=== PATIENT | male | born 1950 | race Caucasian/White ===

== ENCOUNTER → 2017-08-08 | Outpatient (CLI) | payer MEDICARE, BC ==
[2017-08-08 11:08] LABS: Albumin 3.5 g/dL (3.5-5.0); Bilirubin, Delta 0.3 mg/dL (0.0-0.2); Bilirubin,Unconjugated 0.2 mg/dL (0.0-1.1); Calcium 9.3 mg/dL (8.4-10.2); Magnesium 1.7 mg/dL (1.6-2.3); Potassium 4.3 mmol/L (3.5-5.1); Total Bilirubin 0.5 mg/dL (0.2-1.3); Total Protein 6.8 g/dL (6.3-8.2)
[2017-08-08 11:23] LABS: Basophils % (A) 1 %; Eosinophils # (A) 0.1 k/uL (0-0.7); Eosinophils % (A) 2 %; Lymphocytes # (A) 2.2 k/uL (1.0-4.8); Lymphocytes % (A) 34 %; MCH 30.6 pg (25.0-35.0); MCHC 32.5 g/dL (31.0-37.0); MCV 94.1 fL (80.0-100.0); Mean Platelet Volume 6.9; Monocytes # (A) 0.4 k/uL (0-1.0); Monocytes % (A) 6 %; Neutrophils # (A) 3.8 k/uL (1.3-7.7); Neutrophils % (A) 57 %; Platelet Count 286 k/uL (150-450); RBC 4.57 m/uL (4.30-5.90); RDW 13.2 % (11.5-15.5); WBC 6.6 k/uL (3.8-10.6)
[2017-08-10 14:54] LABS: HCV Quant Log 6.62 (<1.08)
== END | disposition home or self-care (01) ==
LOC: LABWHC1 09:39
PROVIDERS: ATTEND Internal Medicine Gastroenterology
DX: C22.0 Liver cell carcinoma (principal); B18.2 Chronic viral hepatitis C; Z94.4 Liver transplant status
CPT/HCPCS: 36415; 80048; 80076; 80158; 82105; 82465; 83735; 85025; 87522; 87902

== ENCOUNTER 2017-12-20 12:59 | Emergency (ER) | payer BC, MEDICARE ==
--- NOTE | 2017-12-20 13:40 | ED ---
General Adult HPI - General Chief complaint: Weakness Stated complaint: Weakness Time Seen by Provider: 12/20/17 13:14 Source: patient, EMS Mode of arrival: EMS Limitations: physical limitation - History of Present Illness Initial comments: This is a 67-year-old male with a history of liver transplant, CAD, CVA, and hip fracture presents emergency department for left-sided groin pain. He states that he fell 4 days ago. He was going to the bathroom to empty out some urine drugs and lost his footing in the bathroom. He states that he fell onto his left side. He does admit to hitting his head however states he did not lose consciousness. He states over the last 4 days he has been having difficulty with ambulation and a lot of pain. He did have to have his grandson come over and help him get back in to his recliner. His home care nurse came and evaluated today and saw how weak he was and sent him into the emergency department. Patient denies any other injuries. He states that otherwise he feels completely normal. No chest pain or shortness of breath. No abdominal pain. No dysuria or hematuria. No other acute complaints. - Related Data Home Medications Medication Instructions Recorded Confirmed Aspirin 81 mg PO HS 09/16/15 12/20/17 amLODIPine BESYLATE [Norvasc] 5 mg PO BID 09/16/15 12/20/17 Cyclosporine, Modified [Gengraf] 50 mg PO HS 12/16/15 12/20/17 Cyclosporine, Modified [Gengraf] 75 mg PO QAM 12/16/15 12/20/17 Metoprolol Tartrate [Lopressor] 50 mg PO DAILY 12/16/15 12/20/17 Mycophenolate Mofetil [Cellcept] 500 mg PO BID 12/16/15 12/20/17 levETIRAcetam [Keppra] 1,500 mg PO BID 12/16/15 12/20/17 Atorvastatin [Lipitor] 40 mg PO HS 12/20/17 12/20/17 Iron(Unknown Dose) 1 tab PO DAILY 12/20/17 12/20/17 Vitamin D3(Unknown Dose) 3 tab PO HS 12/20/17 12/20/17 Allergies Allergy/AdvReac Type Severity Reaction Status Date / Time diphenhydramine HCl Allergy Unknown Verified 12/16/15 07:48 [From [facility]] Review of Systems ROS Statement: Those systems with pertinent positive or pertinent negative responses have been documented in the HPI. ROS Other: All systems not noted in ROS Statement are negative. Past Medical History Past Medical History: Cancer, CVA/TIA, Hypertension, Liver Disease, Seizure Disorder, Vascular Disorder Additional Past Medical History / Comment(s): left sided weakness from stroke, HEPATITIS C History of Any Multi-Drug Resistant Organisms: None Reported Past Surgical History: Heart Catheterization With Stent Additional Past Surgical History / Comment(s): Liver transplant, LEFT FEMUR REPAIR x2 Date of Last Stent Placement:: 2012 Past Psychological History: No Psychological Hx Reported Smoking Status: Current every day smoker Past Alcohol Use History: None Reported Past Drug Use History: None Reported - Past Family History Mother Family Medical History: Congestive Heart Failure (CHF) Father Family Medical History: Congestive Heart Failure (CHF), Myocardial Infarction ( [place]) General Exam - General Exam Comments Initial Comments: Constitutional: Awake alert Appears comfortable Head: Normocephalic atraumatic Eyes: no conjunctival injection No scleral icterus EOMI Neck: No JVD Supple Heart: Regular rate rhythm normal S1-S2 no murmurs Lungs: Clear to auscultation bilaterally No wheezing No rales Abdomen: Soft nondistended nontender Extremities: Non edematous DP pulses intact Radial pulses intact, tender in the left inguinal region, no pain with log rolling of the left lower extremity, there is some pain with pelvic rocking Neuro: A&Ox3 No focal neurologic deficits Psych: Appropriate mood and affect Limitations: physical limitation Course Vital Signs 12/20/17 12/20/17 12/20/17 13:00 13:11 14:34 Temperature 96.8 F L 97.3 F L Pulse Rate 52 L 59 L 56 L Respiratory 19 20 19 Rate Blood Pressure 205/95 105/56 216/92 O2 Sat by Pulse 99 93 L 98 Oximetry EKG Findings - EKG Comments: EKG Findings:: EKG showing sinus. Cardiac with a rate of 50. There is no abnormal ST segment changes or T-wave inversions. QTC is 432. Other intervals normal. No ectopy. Medical Decision Making - Medical Decision Making This is a 67-year-old male who presents emergency department for left hip pain after a fall 4 days ago. The patient was evaluated with x-rays did not show any acute fractures. He does have an old non-healing fracture of the left intertrochanteric femur. This is chronic for him. No other acute fractures. The patient did not require any pain medications in the emergency department. He is not ambulatory at baseline and uses a wheelchair. I discussed the patient that I would recommend that he stay in observation for physical therapy and possible placement however he states that he does not want to do this and wants to go home. He states that his grandson can assist him at home and has physical therapy coming to his house. The patient will be discharged home with a wheelchair van. All questions answered. - Lab Data Result diagrams: 12/20/17 13:40 12/20/17 13:40 Lab Results 12/20/17 12/20/17 12/20/17 Range/Units 13:40 13:40 13:40 WBC 5.9 (3.8-10.6) k/uL RBC 4.05 L (4.30-5.90) m/uL Hgb 12.6 L (13.0-17.5) gm/dL Hct 37.2 L (39.0-53.0) % MCV 91.7 (80.0-100.0) fL MCH 31.2 (25.0-35.0) pg MCHC 34.0 (31.0-37.0) g/dL RDW 13.9 (11.5-15.5) % Plt Count 231 (150-450) k/uL Neutrophils % 52 % Lymphocytes % 37 % Monocytes % 7 % Eosinophils % 2 % Basophils % 1 % Neutrophils # 3.1 (1.3-7.7) k/uL Lymphocytes # 2.1 (1.0-4.8) k/uL Monocytes # 0.4 (0-1.0) k/uL Eosinophils # 0.1 (0-0.7) k/uL Basophils # 0.0 (0-0.2) k/uL PT 9.6 (9.0-12.0) sec INR 1.0 (<1.2) APTT 24.6 (22.0-30.0) sec Sodium 139 (137-145) mmol/L Potassium 4.1 (3.5-5.1) mmol/L Chloride 110 H (98-107) mmol/L Carbon Dioxide 19 L (22-30) mmol/L Anion Gap 10 mmol/L BUN 32 H (9-20) mg/dL Creatinine 1.79 H (0.66-1.25) mg/dL Est GFR (CKD-EPI)AfAm 45 (>60 ml/min/1.73 sqM) Est GFR (CKD-EPI)NonAf 39 (>60 ml/min/1.73 sqM) Glucose 92 (74-99) mg/dL Calcium 8.3 L (8.4-10.2) mg/dL Total Bilirubin 0.4 (0.2-1.3) mg/dL AST 37 (17-59) U/L ALT 43 (21-72) U/L Alkaline Phosphatase 84 (38-126) U/L Total Protein 6.0 L (6.3-8.2) g/dL Albumin 3.1 L (3.5-5.0) g/dL Urine Color Urine Appearance (Clear) Urine pH (5.0-8.0) Ur Specific [place] (1.001-1.035) Urine Protein (Negative) Urine Glucose (UA) (Negative) Urine Ketones (Negative) Urine Blood (Negative) Urine Nitrite (Negative) Urine Bilirubin (Negative) Urine Urobilinogen (<2.0) mg/dL Ur Leukocyte Esterase (Negative) Urine RBC (0-5) /hpf Urine WBC (0-5) /hpf Ur Squamous Epith Cells (0-4) /hpf Hyaline Casts (0-2) /lpf Urine Mucus (None) /hpf 12/20/17 Range/Units 13:45 WBC (3.8-10.6) k/uL RBC (4.30-5.90) m/uL Hgb (13.0-17.5) gm/dL Hct (39.0-53.0) % MCV (80.0-100.0) fL MCH (25.0-35.0) pg MCHC (31.0-37.0) g/dL RDW (11.5-15.5) % Plt Count (150-450) k/uL Neutrophils % % Lymphocytes % % Monocytes % % Eosinophils % % Basophils % % Neutrophils # (1.3-7.7) k/uL Lymphocytes # (1.0-4.8) k/uL Monocytes # (0-1.0) k/uL Eosinophils # (0-0.7) k/uL Basophils # (0-0.2) k/uL PT (9.0-12.0) sec INR (<1.2) APTT (22.0-30.0) sec Sodium (137-145) mmol/L Potassium (3.5-5.1) mmol/L Chloride (98-107) mmol/L Carbon Dioxide (22-30) mmol/L Anion Gap mmol/L BUN (9-20) mg/dL Creatinine (0.66-1.25) mg/dL Est GFR (CKD-EPI)AfAm (>60 ml/min/1.73 sqM) Est GFR (CKD-EPI)NonAf (>60 ml/min/1.73 sqM) Glucose (74-99) mg/dL Calcium (8.4-10.2) mg/dL Total Bilirubin (0.2-1.3) mg/dL AST (17-59) U/L ALT (21-72) U/L Alkaline Phosphatase (38-126) U/L Total Protein (6.3-8.2) g/dL Albumin (3.5-5.0) g/dL Urine Color Yellow Urine Appearance Clear (Clear) Urine pH 6.5 (5.0-8.0) Ur Specific [place] 1.011 (1.001-1.035) Urine Protein 3+ H (Negative) Urine Glucose (UA) Negative (Negative) Urine Ketones Negative (Negative) Urine Blood Small H (Negative) Urine Nitrite Negative (Negative) Urine Bilirubin Negative (Negative) Urine Urobilinogen <2.0 (<2.0) mg/dL Ur Leukocyte Esterase Negative (Negative) Urine RBC 1 (0-5) /hpf Urine WBC 2 (0-5) /hpf Ur Squamous Epith Cells <1 (0-4) /hpf Hyaline Casts 4 H (0-2) /lpf Urine Mucus Rare H (None) /hpf Disposition Clinical Impression: Hip pain, Fall Disposition: HOME SELF-CARE Condition: Stable Instructions: Fall Prevention (ED) Is patient prescribed a controlled substance at d/c from ED?: No Referrals: None,Stated [Primary Care Provider] - 1-2 days
[2017-12-20 14:08] LABS: Appearance,Urine Clear (Clear); Bilirubin,Urine Negative (Negative); Blood,Urine Small (Negative); Color,Urine Yellow; Glucose,Urine (UA) Negative (Negative); Hyaline Casts,Urine 4 /lpf (0-2); Ketones,Urine Negative (Negative); Leukocyte Esterase,Urine Negative (Negative); Mucus,Urine Rare /hpf; Nitrite,Urine Negative (Negative); PH, Urine 6.5 (5.0-8.0); Protein,Urine 3+ (Negative); RBC,Urine 1 /hpf (0-5); Specific Gravity,Urine 1.011 (1.001-1.035); Squamous Epithelial Cell,Urine <1 /hpf (0-4); Urobilinogen,Urine <2.0 mg/dL (<2.0); WBC,Urine 2 /hpf (0-5)
[2017-12-20 14:08] LABS: Partial Thromboplastin Time 24.6 sec (22.0-30.0); Prothrombin Time 9.6 sec (9.0-12.0)
[2017-12-20 14:18] LABS: Basophils % (A) 1 %; Eosinophils # (A) 0.1 k/uL (0-0.7); Eosinophils % (A) 2 %; HCT 37.2 % (39.0-53.0); HGB 12.6 gm/dL (13.0-17.5); Lymphocytes # (A) 2.1 k/uL (1.0-4.8); Lymphocytes % (A) 37 %; MCH 31.2 pg (25.0-35.0); MCV 91.7 fL (80.0-100.0); Mean Platelet Volume 6.6; Monocytes # (A) 0.4 k/uL (0-1.0); Monocytes % (A) 7 %; Neutrophils # (A) 3.1 k/uL (1.3-7.7); Neutrophils % (A) 52 %; Platelet Count 231 k/uL (150-450); RBC 4.05 m/uL (4.30-5.90); RDW 13.9 % (11.5-15.5); WBC 5.9 k/uL (3.8-10.6)
[2017-12-20 14:27] LABS: Albumin 3.1 g/dL (3.5-5.0); Calcium 8.3 mg/dL (8.4-10.2); Potassium 4.1 mmol/L (3.5-5.1); Total Bilirubin 0.4 mg/dL (0.2-1.3)
--- NOTE | 2017-12-20 14:59 | XR ---
EXAMINATION TYPE: XR knee complete LT, XR femur LT DATE OF EXAM: 12/20/2017 CLINICAL HISTORY: pain TECHNIQUE: Three views of the left knee are obtained. AP and lateral views of the left femur are als o submitted. COMPARISON: None. FINDINGS: There is no acute fracture/dislocation. Postoperative fixation of the femur with intramedu llary pat noted. Nonunion intertrochanteric fracture. Sedation plate and screws distal femur without definite evidence for acute fracture at this time. Degenerative change of the medial tibiofemoral nayeli nt space. Patellofemoral joint space narrowing noted as well. IMPRESSION: There is no acute fracture or dislocation. Postoperative changes of the left femur as discussed with nonunion of intratrochanteric fracture. ICD 10 NO FRACTURE, INITIAL EVALUATION
--- NOTE | 2017-12-20 15:01 | XR ---
EXAMINATION TYPE: XR chest 2V DATE OF EXAM: 12/20/2017 COMPARISON: 09/16/2015 HISTORY: Shortness of breath TECHNIQUE: Frontal and lateral views of the chest are obtained. FINDINGS: Scattered senescent parenchymal changes noted. No evidence for infiltrate. No evidence for atelectasis. Heart size is stable. Mediastinal structures are stable and grossly unremarkable. No evidence for hilar prominence. Degenerative changes dorsal spine. Multiple healed left-sided rib fractures. IMPRESSION: 1. No evidence for acute pulmonary disease.
--- NOTE | 2017-12-20 15:21 | XR ---
AP pelvis HISTORY: Left hip pain Frontal view of the pelvis correlated to left femur same date, prior pelvis and left hip dated 09/16/19 16 Patient shows intramedullary pat placement for proximal femoral fracture, there is a pseudarthrosis p resent at the fracture line with hypertrophic change. Pelvis is rotated. There are dense vascular zahida cifications noted. Bone mineralization is reduced. IMPRESSION: Nonunited proximal femoral fracture
--- NOTE | 2017-12-20 15:33 | CT ---
EXAMINATION TYPE: CT brain wo con DATE OF EXAM: 12/20/2017 COMPARISON: 01/25/2016 HISTORY: Head injury, weakness CT DLP: [address] of the brain was performed. The ventricles, basal cisterns and sulci overlying the cerebral convexities demonstrate moderate enla rgement. Remote insult right occipital lobe. There is no evidence for intracranial hemorrhage or sulcal effacement. There is decreased attenuation about the periventricular white matter and deep white matter of both c erebral hemispheres, compatible with chronic small vessel ischemia. Differential diagnosis does inclu de demyelination. No mass effects are seen.No midline shift. Osseous calvarium is intact. If symptoms persist consider MRI. IMPRESSION: 1. Age related atrophic and chronic small vessel ischemic change without acute intracranial process s een at this time. Remote right occipital insult.
[2017-12-20 16:35] VITALS: BP 185/88; PULSE 60; RESP 16; TEMP 97
== END 2017-12-20 16:40 | disposition home or self-care (01) ==
LOC: EC 12:59
DX: M25.552 Pain in left hip (principal); I10 Essential (primary) hypertension; G40.909 Epilepsy, unspecified, not intractable, without status epilepticus; F17.200 Nicotine dependence, unspecified, uncomplicated; Z86.73 Personal history of transient ischemic attack (TIA), and cerebral infarction without residual deficits; Z85.9 Personal history of malignant neoplasm, unspecified; Z86.19 Personal history of other infectious and parasitic diseases; Z95.5 Presence of coronary angioplasty implant and graft; Z94.4 Liver transplant status; Z79.82 Long term (current) use of aspirin; Z79.899 Other long term (current) drug therapy; Z88.8 Allergy status to other drugs, medicaments and biological substances; W18.00XA Striking against unspecified object with subsequent fall, initial encounter; Y92.002 Bathroom of unspecified non-institutional (private) residence as the place of occurrence of the external cause
CPT/HCPCS: 36415; 70450; 71046; 72170; 80053; 81001; 85025; 85610; 85730; 93005; 99285

== ENCOUNTER 2018-01-09 16:09 | Inpatient (IN) | payer MEDICARE ==
[2018-01-09 16:27] LABS: Glucose,Whole Blood 87 mg/dL (75-99)
[2018-01-09] MEDS ORDERED: SODIUM CHLORIDE 0.9% 500 ML IV STA (16:34)
[2018-01-09] MEDS ORDERED: SODIUM CHLORIDE 0.9% 1,000 ML IV STA (16:34)
[2018-01-09] MEDS ORDERED: PIPERACILLIN-TAZOBACTAM 3.375 GM in DEXTROSE/WATER 1 50ML.BAG IVPB STA (16:49)
[2018-01-09 16:55] LABS: Basophils % (A) 0 %; Eosinophils # (A) 0.2 k/uL (0-0.7); Eosinophils % (A) 2 %; HGB 11.6 gm/dL (13.0-17.5); Lymphocytes % (A) 27 %; MCH 30.8 pg (25.0-35.0); MCHC 33.2 g/dL (31.0-37.0); MCV 92.7 fL (80.0-100.0); Mean Platelet Volume 6.6; Monocytes # (A) 0.5 k/uL (0-1.0); Monocytes % (A) 6 %; Neutrophils # (A) 4.8 k/uL (1.3-7.7); Neutrophils % (A) 63 %; Platelet Count 253 k/uL (150-450); RBC 3.78 m/uL (4.30-5.90); RDW 13.9 % (11.5-15.5); WBC 7.6 k/uL (3.8-10.6)
[2018-01-09 17:02] LABS: Partial Thromboplastin Time 23.9 sec (22.0-30.0)
[2018-01-09 17:05] LABS: Albumin 2.7 g/dL (3.5-5.0); Total Bilirubin 0.6 mg/dL (0.2-1.3); Total Protein 5.5 g/dL (6.3-8.2)
--- NOTE | 2018-01-09 17:15 | XR ---
EXAMINATION: XR chest 2V DATE AND TIME: 01/09/2018 5:08 PM ORDERING PROVIDER: Nancy Braun MD CLINICAL INDICATION: Weakness TECHNIQUE: PA and lateral COMPARISON: 12/20/2017 DESCRIPTION: The lungs are clear. The pleural spaces are negative. The cardiac silhouette is mildly enlarged. The skeletal structures are intact without acute findings. Redemonstration of the old multilevel left posterior lateral rib fractures. The soft tissues are unremarkable. IMPRESSION: NO ACUTE PROCESS.
[2018-01-09 17:18] LABS: Creatine Kinase MB 1.9 ng/mL (0.0-2.4)
[2018-01-09 17:20] LABS: Troponin I 0.046 ng/mL (0.000-0.034)
--- NOTE | 2018-01-09 17:20 | CT ---
EXAMINATION: CT brain wo con DATE AND TIME: 01/09/2018 5:06 PM ORDERING PROVIDER: Nancy Braun MD CLINICAL INDICATION: weakness TECHNIQUE: Standard departmental protocol. COMPARISON: 12/30/2017 DESCRIPTION: The previously seen large zone of encephalomalacia throughout the vascular territory of the right posterior cerebral artery is redemonstrated without interval change. There is no fracture or intracranial hemorrhage. No definite new attenuation defect. The diffuse low- attenuation throughout the cornell radiata and centrum semiovale bilaterally is redemonstrated with si milar appearance. There is no mass or mass effect. Remainder of the intra-axial and extra-axial sienna rtment examination is unremarkable. The visualized left maxillary sinus is opacified, and correlate with a clinical diagnosis of chronic or acute maxillary sinusitis. Remaining paranasal sinuses, middle ear cavities, and mastoid sinus air cells are clear. The orbits a re intact. IMPRESSION: NO ACUTE PROCESS.
--- NOTE | 2018-01-09 17:32 | CT ---
EXAMINATION TYPE: CT hip LT wo con DATE OF EXAM: 01/09/2018 COMPARISON: NONE HISTORY: Increased weakness, fall 2 days ago. Difficulty getting out of chair. CT DLP: 703.1 mGycm Automated exposure control for dose reduction was used. FINDINGS: Left femoral orthopedic hardware is intact. There is generalized osteopenia. The left gluteus maykel shows ill-defined enlargement laterally over the posterior hip, with concurr ent defined reticulation throughout the overlying subcutaneous adipose compartment. These soft tissue findings can be further characterized with MRI intravenous contrast if infection is a clinical possi bility. If affection seems unlikely clinically then the CT soft tissue findings are likely due to sub acute hemorrhage. Underlying these tissue findings is a rather subtle candidate for nondisplaced fracture posteriorly i nvolving the greater trochanter. Chronic left hip changes are noted, sequela of prior trauma. The ske letal structures are otherwise unremarkable. IMPRESSION: RATHER PROMINENT SOFT TISSUE CHANGES OVER THE LEFT HIP WITH SUBTLE CANDIDATE FOR NONDISPLACED FRACTUR E, DISCUSSED.
--- NOTE | 2018-01-09 17:46 | ED ---
Weakness HPI - General Chief complaint: Weakness Stated complaint: Weakness Time Seen by Provider: 01/09/18 16:16 Source: patient, EMS Mode of arrival: EMS - History of Present Illness Initial comments: 67 years old male presents with generalized weakness as a history of CVA effusions ago also complaining about a sore on the left hip he is status post total hip he has some areas quite painful is red is inflamed over the left hip score site. He said he has been so weak he has not been able to ambulate or get out of even his chair also complaining about very high blood pressure. He denies any headache no blurred vision no neck stiffness no chest pain or shortness of breath no abdominal pain no frequency urgency dysuria at this point he does have a decidual lower left sided weakness from his previous stroke - Related Data Home Medications Medication Instructions Recorded Confirmed Aspirin 81 mg PO HS 09/16/15 01/09/18 amLODIPine BESYLATE [Norvasc] 5 mg PO BID 09/16/15 01/09/18 Cyclosporine, Modified [Gengraf] 75 mg PO HS 12/16/15 01/09/18 Cyclosporine, Modified [Gengraf] 75 mg PO QA 12/16/15 01/09/18 Metoprolol Tartrate [Lopressor] 50 mg PO DAILY 12/16/15 01/09/18 Mycophenolate Mofetil [Cellcept] 500 mg PO BID 12/16/15 01/09/18 Cholecalciferol [Vitamin D3] 3,000 unit PO DAILY 01/09/18 01/09/18 Ferrous Sulfate [Feosol] 325 mg PO DAILY 01/09/18 01/09/18 levETIRAcetam [Keppra] 1,000 mg PO Q12HR 01/09/18 01/09/18 Allergies Allergy/AdvReac Type Severity Reaction Status Date / Time diphenhydramine HCl Allergy Unknown Verified 01/09/18 17:20 [From Benadryl] Review of Systems ROS Statement: Those systems with pertinent positive or pertinent negative responses have been documented in the HPI. ROS Other: All systems not noted in ROS Statement are negative. Past Medical History Past Medical History: Cancer, CVA/TIA, Hypertension, Liver Disease, Seizure Disorder, Vascular Disorder Additional Past Medical History / Comment(s): left sided weakness from stroke, HEPATITIS C History of Any Multi-Drug Resistant Organisms: None Reported Past Surgical History: Heart Catheterization With Stent Additional Past Surgical History / Comment(s): Liver transplant, LEFT FEMUR REPAIR x2 Date of Last Stent Placement:: 2012 Past Psychological History: No Psychological Hx Reported Smoking Status: Current every day smoker Past Alcohol Use History: None Reported Past Drug Use History: None Reported - Past Family History Mother Family Medical History: Congestive Heart Failure (CHF) Father Family Medical History: Congestive Heart Failure (CHF), Myocardial Infarction ( [place]) General Exam - General Exam Comments Initial Comments: General: The patient is awake and alert, is tired and pale Skin: Skin is warm and dry and no rashes or lesions are noted. Rest today. Large area of erythema tenderness over the left hip Eye: Pupils are equal, round and reactive to light, extra-ocular movements are intact; there is normal conjunctiva bilaterally. Ears, nose, mouth and throat: There are moist mucous membranes and no oral lesions. Neck: The neck is supple, there is no tenderness or JVD. Cardiovascular: There is a regular rate and rhythm. No murmur, rub or gallop is appreciated. Respiratory: To auscultation bilateral, decreased breath sounds bilateral Gastrointestinal: Soft, non-distended, non-tender abdomen without masses or organomegaly noted. There is no rebound or guarding present. Bowel sounds are unremarkable. Back: There is no tenderness to palpation in the midline. There is no obvious deformity. Musculoskeletal: Normal ROM, no tenderness, There is no pedal edema. There is no calf tenderness or swelling. No cords were appreciated. Neurological: CN II-XII intact, Cranial nerves III through XII are intact. Left arm and left leg has a residual weakness from his previous CVA he is able to move the both were not as well as on the right side Psychiatric: Cooperative, appropriate mood & affect, normal judgment. Course Vital Signs 01/09/18 01/09/18 01/09/18 16:17 17:32 19:00 Temperature 98.4 F Pulse Rate 59 L 58 L 58 L Respiratory 18 18 18 Rate Blood Pressure 210/98 208/93 187/84 O2 Sat by Pulse 99 98 98 Oximetry 01/09/18 20:23 Temperature Pulse Rate 70 Respiratory 16 Rate Blood Pressure 166/78 O2 Sat by Pulse 99 Oximetry Vision and his left hip and left knee surgery done at [facility] today's CT of the hip shows left greater trochanter fracture was paged Dr. Clayton orthopedic surgeon digital media sales consultant today though he does need admission for his elevated troponin, metabolic acidosis and renal failure him wondering if we need to transfer him back to [facility] or our department of orthopedics could resume the care EKG Findings - EKG Comments: EKG Findings:: ALLERGIES sinus bradycardia ventricular rate is 59 WA interval is 196 QRS duration is 1 of 4 QT/QTc is 432/427 review of this EKG reveals T- wave inversion in leads 3 also noticed a T-wave inversion in lead aVF no ST elevation or ST depression noticed any other leads and this EKG was compared with the old EKG from a July 2017 T-wave inversion in aVF is comparatively new Medical Decision Making - Lab Data Result diagrams: 01/15/18 06:01 01/15/18 06:01 Lab Results 01/09/18 01/09/18 01/09/18 Range/Units 16:13 16:36 16:36 WBC 7.6 (3.8-10.6) k/uL RBC 3.78 L (4.30-5.90) m/uL Hgb 11.6 L (13.0-17.5) gm/dL Hct 35.0 L (39.0-53.0) % MCV 92.7 (80.0-100.0) fL MCH 30.8 (25.0-35.0) pg MCHC 33.2 (31.0-37.0) g/dL RDW 13.9 (11.5-15.5) % Plt Count 253 (150-450) k/uL Neutrophils % 63 % Lymphocytes % 27 % Monocytes % 6 % Eosinophils % 2 % Basophils % 0 % Neutrophils # 4.8 (1.3-7.7) k/uL Lymphocytes # 2.0 (1.0-4.8) k/uL Monocytes # 0.5 (0-1.0) k/uL Eosinophils # 0.2 (0-0.7) k/uL Basophils # 0.0 (0-0.2) k/uL PT (9.0-12.0) sec INR (<1.2) APTT (22.0-30.0) sec Sodium (137-145) mmol/L Potassium (3.5-5.1) mmol/L Chloride (98-107) mmol/L Carbon Dioxide (22-30) mmol/L Anion Gap mmol/L BUN (9-20) mg/dL Creatinine (0.66-1.25) mg/dL Est GFR (CKD-EPI)AfAm (>60 ml/min/1.73 sqM) Est GFR (CKD-EPI)NonAf (>60 ml/min/1.73 sqM) Glucose (74-99) mg/dL POC Glucose (mg/dL) 87 (75-99) mg/dL POC Glu Alemite Operator ID Effie Be Plasma Lactic Acid Kaz (0.7-2.0) mmol/L Calcium (8.4-10.2) mg/dL Total Bilirubin (0.2-1.3) mg/dL AST (17-59) U/L ALT (21-72) U/L Alkaline Phosphatase (38-126) U/L Total Creatine Kinase 60 (55-170) U/L CK-MB (CK-2) 1.9 (0.0-2.4) ng/mL CK-MB (CK-2) Rel Index 3.2 Troponin I 0.046 H* (0.000-0.034) ng/mL Total Protein (6.3-8.2) g/dL Albumin (3.5-5.0) g/dL Urine Color Urine Appearance (Clear) Urine pH (5.0-8.0) Ur Specific [place] (1.001-1.035) Urine Protein (Negative) Urine Glucose (UA) (Negative) Urine Ketones (Negative) Urine Blood (Negative) Urine Nitrite (Negative) Urine Bilirubin (Negative) Urine Urobilinogen (<2.0) mg/dL Ur Leukocyte Esterase (Negative) Urine RBC (0-5) /hpf Urine WBC (0-5) /hpf Ur Squamous Epith Cells (0-4) /hpf Urine Bacteria (None) /hpf Hyaline Casts (0-2) /lpf Urine Mucus (None) /hpf Urine Sperm (None) /hpf 01/09/18 01/09/18 01/09/18 Range/Units 16:36 16:36 18:17 WBC (3.8-10.6) k/uL RBC (4.30-5.90) m/uL Hgb (13.0-17.5) gm/dL Hct (39.0-53.0) % MCV (80.0-100.0) fL MCH (25.0-35.0) pg MCHC (31.0-37.0) g/dL RDW (11.5-15.5) % Plt Count (150-450) k/uL Neutrophils % % Lymphocytes % % Monocytes % % Eosinophils % % Basophils % % Neutrophils # (1.3-7.7) k/uL Lymphocytes # (1.0-4.8) k/uL Monocytes # (0-1.0) k/uL Eosinophils # (0-0.7) k/uL Basophils # (0-0.2) k/uL PT 10.0 (9.0-12.0) sec INR 1.0 (<1.2) APTT 23.9 (22.0-30.0) sec Sodium 139 (137-145) mmol/L Potassium 4.0 (3.5-5.1) mmol/L Chloride 109 H (98-107) mmol/L Carbon Dioxide 19 L (22-30) mmol/L Anion Gap 11 mmol/L BUN 33 H (9-20) mg/dL Creatinine 2.34 H (0.66-1.25) mg/dL Est GFR (CKD-EPI)AfAm 32 (>60 ml/min/1.73 sqM) Est GFR (CKD-EPI)NonAf 28 (>60 ml/min/1.73 sqM) Glucose 88 (74-99) mg/dL POC Glucose (mg/dL) (75-99) mg/dL POC Glu Alemite Operator ID Plasma Lactic Acid Kaz (0.7-2.0) mmol/L Calcium 8.0 L (8.4-10.2) mg/dL Total Bilirubin 0.6 (0.2-1.3) mg/dL AST 34 (17-59) U/L ALT 37 (21-72) U/L Alkaline Phosphatase 84 (38-126) U/L Total Creatine Kinase (55-170) U/L CK-MB (CK-2) (0.0-2.4) ng/mL CK-MB (CK-2) Rel Index Troponin I (0.000-0.034) ng/mL Total Protein 5.5 L (6.3-8.2) g/dL Albumin 2.7 L (3.5-5.0) g/dL Urine Color Yellow Urine Appearance Clear (Clear) Urine pH 6.0 (5.0-8.0) Ur Specific [place] 1.016 (1.001-1.035) Urine Protein 4+ H (Negative) Urine Glucose (UA) Trace H (Negative) Urine Ketones Negative (Negative) Urine Blood Small H (Negative) Urine Nitrite Negative (Negative) Urine Bilirubin Negative (Negative) Urine Urobilinogen <2.0 (<2.0) mg/dL Ur Leukocyte Esterase Negative (Negative) Urine RBC <1 (0-5) /hpf Urine WBC 2 (0-5) /hpf Ur Squamous Epith Cells <1 (0-4) /hpf Urine Bacteria Rare H (None) /hpf Hyaline Casts 7 H (0-2) /lpf Urine Mucus Rare H (None) /hpf Urine Sperm Rare (None) /hpf 01/09/18 Range/Units 18:19 WBC (3.8-10.6) k/uL RBC (4.30-5.90) m/uL Hgb (13.0-17.5) gm/dL Hct (39.0-53.0) % MCV (80.0-100.0) fL MCH (25.0-35.0) pg MCHC (31.0-37.0) g/dL RDW (11.5-15.5) % Plt Count (150-450) k/uL Neutrophils % % Lymphocytes % % Monocytes % % Eosinophils % % Basophils % % Neutrophils # (1.3-7.7) k/uL Lymphocytes # (1.0-4.8) k/uL Monocytes # (0-1.0) k/uL Eosinophils # (0-0.7) k/uL Basophils # (0-0.2) k/uL PT (9.0-12.0) sec INR (<1.2) APTT (22.0-30.0) sec Sodium (137-145) mmol/L Potassium (3.5-5.1) mmol/L Chloride (98-107) mmol/L Carbon Dioxide (22-30) mmol/L Anion Gap mmol/L BUN (9-20) mg/dL Creatinine (0.66-1.25) mg/dL Est GFR (CKD-EPI)AfAm (>60 ml/min/1.73 sqM) Est GFR (CKD-EPI)NonAf (>60 ml/min/1.73 sqM) Glucose (74-99) mg/dL POC Glucose (mg/dL) (75-99) mg/dL POC Glu Alemite Operator ID Plasma Lactic Acid Kaz 0.7 (0.7-2.0) mmol/L Calcium (8.4-10.2) mg/dL Total Bilirubin (0.2-1.3) mg/dL AST (17-59) U/L ALT (21-72) U/L Alkaline Phosphatase (38-126) U/L Total Creatine Kinase (55-170) U/L CK-MB (CK-2) (0.0-2.4) ng/mL CK-MB (CK-2) Rel Index Troponin I (0.000-0.034) ng/mL Total Protein (6.3-8.2) g/dL Albumin (3.5-5.0) g/dL Urine Color Urine Appearance (Clear) Urine pH (5.0-8.0) Ur Specific [place] (1.001-1.035) Urine Protein (Negative) Urine Glucose (UA) (Negative) Urine Ketones (Negative) Urine Blood (Negative) Urine Nitrite (Negative) Urine Bilirubin (Negative) Urine Urobilinogen (<2.0) mg/dL Ur Leukocyte Esterase (Negative) Urine RBC (0-5) /hpf Urine WBC (0-5) /hpf Ur Squamous Epith Cells (0-4) /hpf Urine Bacteria (None) /hpf Hyaline Casts (0-2) /lpf Urine Mucus (None) /hpf Urine Sperm (None) /hpf Critical Care Time Total Critical Care Time: 30 Critical Care Time: Patient comes in with a generalized weakness his blood pressure was quite elevated to 10 systolic blood pressure he has a history of CVA with the patient CT head CT is unremarkable then we tried some hydralazine 20 mg IV that has hardly touched his son him blood pressure now since I know he does not have any bleed or there is no break in [place] to try some Vasotec he does have elevated troponin though he is not having any chest pain and also noticed a fracture of the left greater trochanter I did speak with the Dr. Rivera digital media sales consultant for orthopedic surgeon Shanice he agreed to be orthopedic consultation he be admitted to hospitalist group covering the city call today Disposition Clinical Impression: Hypertension, Generalized weakness, Greater trochanter fracture, Elevated troponin Disposition: ADMITTED IP TO THIS HOSP
[2018-01-09 18:27] LABS: Appearance,Urine Clear (Clear); Bacteria,Urine Rare /hpf; Bilirubin,Urine Negative (Negative); Blood,Urine Small (Negative); Color,Urine Yellow; Glucose,Urine (UA) Trace (Negative); Hyaline Casts,Urine 7 /lpf (0-2); Ketones,Urine Negative (Negative); Leukocyte Esterase,Urine Negative (Negative); Mucus,Urine Rare /hpf; Nitrite,Urine Negative (Negative); Protein,Urine 4+ (Negative); RBC,Urine <1 /hpf (0-5); Specific Gravity,Urine 1.016 (1.001-1.035); Sperm,Urine Rare /hpf; Squamous Epithelial Cell,Urine <1 /hpf (0-4); Urobilinogen,Urine <2.0 mg/dL (<2.0); WBC,Urine 2 /hpf (0-5)
[2018-01-09] MEDS ORDERED: hydrALAZINE HCL 20 MG/ML 1 ML VIAL IVP STA (18:58)
[2018-01-09] MEDS ORDERED: ENALAPRILAT 1.25 MG/ML 1 ML VIAL IVP STA (19:55)
[2018-01-09] MEDS ORDERED: NITROGLYCERIN SL TABS 0.4 MG TAB SUBLINGUAL PRN (19:57)
[2018-01-09] MEDS ORDERED: MORPHINE SULFATE 2 MG/ML SYRINGE IV PRN (19:57)
[2018-01-09] MEDS ORDERED: ACETAMINOPHEN TAB 325 MG TAB PO PRN (19:57)
[2018-01-09] MEDS ORDERED: ASPIRIN 81 MG PO SCH (21:00)
--- NOTE | 2018-01-09 22:28 | P.HPIM ---
History of Present Illness H&P Date: 01/09/18 Chief Complaint: Frequent falling at home, severe left hip pain 67-year-old male with history of liver transplant and hepatitis C, hypertension , CK D stage III, seizure. Patient presented to the hospital due to left hip pain and frequent falling at home. Patient is a very poor historian and he seems to be upset and never really bad mood using very foul language and not volunteering any information. He also seems to be in a lot of pain related to his left hip. After talking to the patient and reviewing his chart and talking to the ER doctor. It seems like the patient has presented to the hospital due to severe left hip pain, he has also been falling at home frequently but he has gotten very weak recently that he couldn't even get up from his wheelchair. Seems like the patient has presented to the hospital 3 weeks ago for similar complaints where he was found to have left femoral intertrochanteric subacute fracture and at that time he was discharged home. As patient refused admission and possible placement. Patient has received some hardware and treatment of his left hip at [facility]. However it seems like the generalized weakness and frequent falls with brought the patient to the hospital along with the left hip pain. In the emergency department he was found to have malignant hypertension with really high systolic blood pressure over 200, however he denied any chest pain or trouble breathing. He also found to have elevated troponins this could be secondary to his CK D which the patient is not aware of however upon revision of his labs over the past 6 months seems like his creatinine was always elevated in the range of 1.8. This time his creatinine was around 2.3. Otherwise further workup in the emergency department still showed the chronic changes in his left hip, his computed tomography scan of the head was negative for any bleed. Chest x-ray was unremarkable. Lactic acid was negative. Upon further exam he was found to have erythema and blistering over his left hip he related that to scraping while trying to pull himself on the floor. This was suspicious for an acute infection for which she was started on antibiotic and infectious disease specialist was consult. Otherwise the patient was not found to have any new neurologic deficits, he does have left-sided weakness and some contractures in his left hand from prior stroke. Patient is denying any headache or changes in his vision or hearing, he denies any chest pain or trouble breathing, he denies any GI bleeding. He denies any changes in his bowel or urinary habits. Review of Systems Pertinent positives as noted in HPI. All other systems were reviewed and are negative Past Medical History Past Medical History: Cancer, CVA/TIA, Hypertension, Liver Disease, Seizure Disorder, Vascular Disorder Additional Past Medical History / Comment(s): left sided weakness from stroke, HEPATITIS C History of Any Multi-Drug Resistant Organisms: None Reported Past Surgical History: Heart Catheterization With Stent Additional Past Surgical History / Comment(s): Liver transplant, LEFT FEMUR REPAIR x2 Date of Last Stent Placement:: 2012 Past Psychological History: No Psychological Hx Reported Smoking Status: Current every day smoker Past Alcohol Use History: None Reported Past Drug Use History: None Reported - Past Family History Mother Family Medical History: Congestive Heart Failure (CHF) Father Family Medical History: Congestive Heart Failure (CHF), Myocardial Infarction ( [place]) Medications and Allergies Home Medications Medication Instructions Recorded Confirmed Type Aspirin 81 mg PO HS 09/16/15 01/09/18 History amLODIPine BESYLATE [Norvasc] 5 mg PO BID 09/16/15 01/09/18 History Cyclosporine, Modified [Gengraf] 75 mg PO HS 12/16/15 01/09/18 History Cyclosporine, Modified [Gengraf] 75 mg PO QA 12/16/15 01/09/18 History Metoprolol Tartrate [Lopressor] 50 mg PO DAILY 12/16/15 01/09/18 History Mycophenolate Mofetil [Cellcept] 500 mg PO BID 12/16/15 01/09/18 History Cholecalciferol [Vitamin D3] 3,000 unit PO DAILY 01/09/18 01/09/18 History Ferrous Sulfate [Feosol] 325 mg PO DAILY 01/09/18 01/09/18 History levETIRAcetam [Keppra] 1,000 mg PO Q12HR 01/09/18 01/09/18 History Allergies Allergy/AdvReac Type Severity Reaction Status Date / Time diphenhydramine HCl Allergy Unknown Verified 01/09/18 17:20 [From Benadryl] Physical Exam Vitals: Vital Signs Temp Pulse Resp BP Pulse Ox 01/09/18 20:23 70 16 166/78 99 01/09/18 19:00 58 L 18 187/84 98 01/09/18 17:32 58 L 18 208/93 98 01/09/18 16:17 98.4 F 59 L 18 210/98 99 Intake and Output 01/09/18 01/09/18 01/09/18 06:59 14:59 22:59 Other: Weight 86.636 kg Constitutional: No acute distress, patient is reporting left hip pain, patient seems to be upset, he is using foul language and not cooperating with history taking. Eyes: Anicteric sclerae, moist conjunctiva, no lid-lag Pupils equal round reactive to light ENMT: NC/AT Oropharynx clear, no erythema, or exudates Neck: Supple, FROM, no masses, or JVD No carotid bruits No thyromegaly Lungs: Clear to auscultation Clear to percussion Normal respiratory effort, no accessory muscle use Cardiovascular: Heart regular in rate and rhythm, No murmurs, gallops, or rubs No peripheral edema Abdominal: Soft Nontender, no guarding, rebound or rigidity Abdomen moving with respiration Normoactive bowel sounds No hepatomegaly, No splenomegaly No palpable mass No abdominal wall hernia noted Skin: Patient has eschar over his left foot 2 x 2 centimeter over the lateral aspect of the dorsum of the left foot Patient also has erythema and blistering 10 x 10 cm over his left hip tender to palpation Normal temperature, tone, texture, turgor No induration No subcutaneous nodules No rash, Extremities: Abduction of the left hip, external rotation of the left leg, tenderness to palpation of the left hip No digital cyanosis No clubbing Pedal pulses intact and symmetrical Radial pulses intact and symmetrical No calf tenderness Psychiatric: Alert and oriented to person, place and time Patient is paranoid fair judgment Neuro Muscles Strength 5/5 over the right upper and lower extremity, left lower extremity could not he tested due to severe left hip pain, left upper extremity with contractures in his forearm and left hand due to prior stroke Sensation to light touch grossly present throughout Cranial nerves II-XII grossly intact No focal sensory deficits Lymphatics: no palpable cervical or supraclavicular , or inguinal lymph nodes Results CBC & Chem 7: 01/09/18 16:36 01/09/18 16:36 Labs: Abnormal Lab Results - Last 24 Hours (Table) 01/09/18 01/09/18 01/09/18 Range/Units 16:36 16:36 16:36 RBC 3.78 L (4.30-5.90) m/uL Hgb 11.6 L (13.0-17.5) gm/dL Hct 35.0 L (39.0-53.0) % Chloride 109 H (98-107) mmol/L Carbon Dioxide 19 L (22-30) mmol/L BUN 33 H (9-20) mg/dL Creatinine 2.34 H (0.66-1.25) mg/dL Calcium 8.0 L (8.4-10.2) mg/dL Troponin I 0.046 H* (0.000-0.034) ng/mL Total Protein 5.5 L (6.3-8.2) g/dL Albumin 2.7 L (3.5-5.0) g/dL Urine Protein (Negative) Urine Glucose (UA) (Negative) Urine Blood (Negative) Urine Bacteria (None) /hpf Hyaline Casts (0-2) /lpf Urine Mucus (None) /hpf 01/09/18 Range/Units 18:17 RBC (4.30-5.90) m/uL Hgb (13.0-17.5) gm/dL Hct (39.0-53.0) % Chloride (98-107) mmol/L Carbon Dioxide (22-30) mmol/L BUN (9-20) mg/dL Creatinine (0.66-1.25) mg/dL Calcium (8.4-10.2) mg/dL Troponin I (0.000-0.034) ng/mL Total Protein (6.3-8.2) g/dL Albumin (3.5-5.0) g/dL Urine Protein 4+ H (Negative) Urine Glucose (UA) Trace H (Negative) Urine Blood Small H (Negative) Urine Bacteria Rare H (None) /hpf Hyaline Casts 7 H (0-2) /lpf Urine Mucus Rare H (None) /hpf Assessment and Plan Assessment: 67-year-old male with history of COPD stage III, hepatitis C, status post liver transplant, seizures, hypertension. The patient is admitted with an anticipated greater than 2 midnight stay for evaluation of severe left hip pain along with generalized weakness and frequent falling over the past couple weeks. Patient was found to have slightly elevated creatinine with acute kidney injury on chronic CK D, slightly elevated troches, malignant hypertension , erythema and blistering over his left hip rule out infectious process. And admitted for further care Plan: #Malignant hypertension, with end organ damage elevated creatinine #Elevated troponins could be secondary to CK D, along with increased cardiac demand with malignant hypertension Blood pressure or edema improved in the emergency department with map lowered by 25%, patient received hydralazine and Vasotec Continue with home blood pressure medications Continue close monitoring of vital signs Continue to monitor troponins and cardiac enzymes Cardiology consult #Acute kidney injury on CK D This could be secondary to malignant hypertension and possibly component of dehydration Gentle IV fluid hydration Avoid nephrotoxic meds Continue to monitor urine output Monitor renal function #Left hip erythema and blistering, rule out infectious process Patient was started on Zosyn ID consult Follow-up cultures #Left foot eschar over the dorsum, present on admission Vascular surgery consult Local wound care #Chronic left intertrochanteric fracture Orthopedic's consult Pain control Patient has received care at [facility] from orthopedic service #Chronic hepatitis C untreated, history of liver transplant on immunosuppressants Outpatient follow-up #History of seizures, most recent breakthrough seizure was over 5 months ago Continue with Keppra Seizure precautions #Diet as tolerated #Tobacco smoking abuse Patient counseled to quit smoking Nicotine replacement therapy offered #History of CVA Continue with aspirin and statin #DVT prophylaxis Heparin subcu Preformed a thorough record review from recent hospitalization seems like recently he's been having elevated creatinine averaging 1.8, his hemoglobin this admission is the highest he has ever been recently which could suggest also component of dehydration and hemoconcentration Surrogate decision-maker: Patient's brother CODE STATUS: Full code Discussed with: Patient, ER Anticipated discharge: 48-[address]: Patient is debilitated and would benefit from placement at long term A total of 55 minutes was spent on the care of this complex patient more than 50 % of the time was spent in counseling and care coordination.
[2018-01-09] MEDS: amLODIPine 5 MG TAB PO SCH (22:43)
[2018-01-09] MEDS: MYCOPHENOLATE MOFETIL 500 MG TAB PO SCH (22:43)
[2018-01-09] MEDS: levETIRAcetam 500 MG TAB PO SCH (22:43)
[2018-01-09 23:12] LABS: Creatine Kinase MB 1.7 ng/mL (0.0-2.4)
[2018-01-09 23:18] LABS: Troponin I 0.04 ng/mL (0.000-0.034)
[2018-01-10] MEDS: HEPARIN SODIUM,PORCINE 5,000 UNIT/ML 1 ML VIAL SQ SCH ×4 (00:30→23:13)
[2018-01-10] MEDS ORDERED: PIPERACILLIN-TAZOBACTAM 3.375 GM in DEXTROSE/WATER 1 50ML.BAG IVPB SCH (04:00)
[2018-01-10] MEDS: MORPHINE SULFATE 2 MG/ML SYRINGE IVP PRN (04:44)
[2018-01-10 06:19] LABS: Cholesterol 186 mg/dL (<200); HDL Cholesterol 32 mg/dL (40-60); LDL Cholesterol,Calculated 132 mg/dL (0-99); Triglycerides 112 mg/dL (<150)
[2018-01-10 06:35] LABS: Creatine Kinase MB 1.9 ng/mL (0.0-2.4)
[2018-01-10 06:53] LABS: Troponin I 0.049 ng/mL (0.000-0.034)
[2018-01-10] MEDS: amLODIPine 5 MG TAB PO SCH ×2 (08:12→20:04)
[2018-01-10] MEDS: ASPIRIN 325 MG TAB PO SCH (08:12)
[2018-01-10] MEDS: CHOLECALCIFEROL 1,000 UNIT TAB PO SCH (08:12)
[2018-01-10] MEDS: METOPROLOL TARTRATE 50 MG TAB PO SCH (08:13)
[2018-01-10] MEDS: MYCOPHENOLATE MOFETIL 500 MG TAB PO SCH ×2 (08:13→20:04)
[2018-01-10] MEDS: levETIRAcetam 500 MG TAB PO SCH ×2 (08:13→20:05)
[2018-01-10] MEDS: FERROUS SULFATE 325 MG TAB PO SCH (08:13)
--- NOTE | 2018-01-10 09:45 | CONS ---
CONSULTATION Mr. Pack is a 67-year-old gentleman with chronic and complex medical problems including hepatitis C, hypertension, renal insufficiency, seizure, who fell at home and comes in with left hip pain. Cardiology has been consulted because of elevated troponin. Patient does not have any chest pain. Has leg edema that is more on the left side than on the right side, that is the side that he had injury in. The mild troponin elevation is at 0.04, 0.04 and 0.04 and this is probably related to renal failure with elevated creatinine of 2.4. It does not require further evaluation at this time. I am going to obtain a 2D echo to assess his LV function. PAST MEDICAL HISTORY: Significant for hepatitis C, CVA, seizure disorder, hypertension, and liver transplant. MEDICATIONS AT HOME INCLUDE: Aspirin, amlodipine, cyclosporine, metoprolol, CellCept, iron, Keppra. ALLERGIES: Allergic to BENADRYL. FAMILY HISTORY: Negative for premature coronary artery disease. SOCIAL HISTORY: Significant for smoking. He denies EtOH abuse or drug abuse. REVIEW OF SYSTEMS: HEENT is unremarkable. CARDIAC: As described above. RESPIRATORY: As described above. GI: Significant for hepatitis C and liver transplant. GENITOURINARY: Significant for renal failure. PSYCHOSOCIAL: Negative. ENDOCRINE: Negative. DERMATOLOGICAL: Negative. CONSTITUTIONAL: Negative. ONCOLOGICAL: Negative. MUSCULOSKELETAL: Significant for hip pain. Rest of the system review is not relevant. PHYSICAL EXAM: Patient is comfortable at rest. Vital signs are stable. Chest exam reveals diminished air entry at the bases. Heart exam reveals first and second heart sounds. No gallop. Abdomen is soft. Exam of extremities reveals bilateral pitting edema, more on the left than on the right. EKG shows sinus rhythm with left axis deviation. Echo results are pending. ASSESSMENT: 1. Elevated troponin secondary to renal failure. 2. Fall with left hip pain, management as per Primary. 3. Hepatitis C with cirrhosis, liver status post liver transplant. 4. Left leg edema, could be due to recent fall and lack of mobility. We need to rule out deep venous thrombosis. We certainly need to rule out left ventricular systolic dysfunction. Thank you for allowing us to participate in this pleasant gentleman. We will follow with you. He does not require any further workup for the elevated troponins. MMODL / IJN: [id number] /
--- NOTE | 2018-01-10 10:05 | US ---
EXAMINATION TYPE: US venous doppler duplex LE LT DATE OF EXAM: 01/10/2018 9:47 AM COMPARISON: 10/08/2015 CLINICAL HISTORY: r/o DVT. SIDE PERFORMED: Left TECHNIQUE: The lower extremity deep venous system is examined utilizing real time linear array sonog ian with graded compression, doppler sonography and color-flow sonography. VESSELS IMAGED: External Iliac Vein (EIV) Common Femoral Vein Deep Femoral Vein Greater Saphenous Vein * Femoral Vein Popliteal Vein (* superficial vessels) Grayscale, color doppler, spectral doppler imaging performed of the deep veins of the lower extremit ies. There is normal flow, compressibility, vascular waveforms. Left Leg: Negative for DVT IMPRESSION: No evidence for DVT at this time.
--- NOTE | 2018-01-10 10:31 | P.CNOR ---
History of Present Illness - HPI Consult date: 01/10/18 Consult reason: other (Chronic left hip pain with history of surgery at [facility]) History of present illness: Patient is a 67-year-old male with multiple medical issues. He is admitted in regards to his elevated troponins and possible RI. He says that he isn't having pain in his left hip for over 2 years since an injury. He had treated at [facility] and has had surgery in his left hip and his left knee multiple times. He says the most recent one was about 2 years ago. He says they keep calling him try to follow up but he doesn't even answer the phone because it is difficult for him to travel there. He says the pain is chronic for him is primarily centered around his left hip and thigh. He says he is has great difficulty with any weightbearing on that left leg and with any motion of that left leg. He denies any new specific injuries but he was on the ground and had to drag himself around and says he has some blisters on his leg because of it. Currently he denies any chest pain or shortness breath. Review of Systems As stated per HPI. No acute changes in his lower extremities in terms of neurologic status. Past Medical History Past Medical History: Cancer, CVA/TIA, Hypertension, Liver Disease, Musculoskeletal Disorder (History of multiple surgeries of the left lower extremity had the left hip and distal femur), Seizure Disorder, Vascular Disorder Additional Past Medical History / Comment(s): left sided weakness from stroke, HEPATITIS C History of Any Multi-Drug Resistant Organisms: None Reported Past Surgical History: Heart Catheterization With Stent Additional Past Surgical History / Comment(s): Liver transplant, LEFT FEMUR REPAIR x2 Date of Last Stent Placement:: 2012 Past Psychological History: No Psychological Hx Reported Smoking Status: Current every day smoker Past Alcohol Use History: None Reported Past Drug Use History: None Reported - Past Family History Mother Family Medical History: Congestive Heart Failure (CHF) Father Family Medical History: Congestive Heart Failure (CHF), Myocardial Infarction ( RI) Medications and Allergies Home Medications Medication Instructions Recorded Confirmed Type Aspirin 81 mg PO HS 09/16/15 01/09/18 History amLODIPine BESYLATE [Norvasc] 5 mg PO BID 09/16/15 01/09/18 History Cyclosporine, Modified [Gengraf] 75 mg PO HS 12/16/15 01/09/18 History Cyclosporine, Modified [Gengraf] 75 mg PO QAM 12/16/15 01/09/18 History Metoprolol Tartrate [Lopressor] 50 mg PO DAILY 12/16/15 01/09/18 History Mycophenolate Mofetil [Cellcept] 500 mg PO BID 12/16/15 01/09/18 History Cholecalciferol [Vitamin D3] 3,000 unit PO DAILY 01/09/18 01/09/18 History Ferrous Sulfate [Feosol] 325 mg PO DAILY 01/09/18 01/09/18 History levETIRAcetam [Keppra] 1,000 mg PO Q12HR 01/09/18 01/09/18 History Allergies Allergy/AdvReac Type Severity Reaction Status Date / Time diphenhydramine HCl Allergy Unknown Verified 01/09/18 17:20 [From Benadryl] Physical Examination Osteopathic Statement: *. No significant issues noted on an osteopathic structural exam other than those noted in the History and Physical/Consult. - Hip left Gait: other Tenderness with palpation: other Pain with motion: other (At the patient's left lower extremity there is well- healed incisions at the lateral thigh and lateral hip. The incisions themselves are doing well without any evidence of purulence or drainage. There is some bruising at the posterior aspect toward his left gluteus with some superficial blistering. There is no obvious fluid collection beyond superficial blisters. He has some tenderness around the area. He has pain with motion at around his left hip. He has difficulty with any sort of motion given his history of stroke and left-sided weakness.) Results - Labs Labs: Abnormal Lab Results - Last 24 Hours (Table) 01/09/18 01/09/18 01/09/18 Range/Units 16:36 16:36 16:36 RBC 3.78 L (4.30-5.90) m/uL Hgb 11.6 L (13.0-17.5) gm/dL Hct 35.0 L (39.0-53.0) % Chloride 109 H (98-107) mmol/L Carbon Dioxide 19 L (22-30) mmol/L BUN 33 H (9-20) mg/dL Creatinine 2.34 H (0.66-1.25) mg/dL Calcium 8.0 L (8.4-10.2) mg/dL Total Creatine Kinase (55-170) U/L Troponin I 0.046 H* (0.000-0.034) ng/mL Total Protein 5.5 L (6.3-8.2) g/dL Albumin 2.7 L (3.5-5.0) g/dL LDL Cholesterol, Calc (0-99) mg/dL HDL Cholesterol (40-60) mg/dL Urine Protein (Negative) Urine Glucose (UA) (Negative) Urine Blood (Negative) Urine Bacteria (None) /hpf Hyaline Casts (0-2) /lpf Urine Mucus (None) /hpf 01/09/18 01/09/18 01/10/18 Range/Units 18:17 21:51 05:21 RBC (4.30-5.90) m/uL Hgb (13.0-17.5) gm/dL Hct (39.0-53.0) % Chloride (98-107) mmol/L Carbon Dioxide (22-30) mmol/L BUN (9-20) mg/dL Creatinine (0.66-1.25) mg/dL Calcium (8.4-10.2) mg/dL Total Creatine Kinase 54 L 50 L (55-170) U/L Troponin I 0.040 H* 0.049 H* (0.000-0.034) ng/mL Total Protein (6.3-8.2) g/dL Albumin (3.5-5.0) g/dL LDL Cholesterol, Calc (0-99) mg/dL HDL Cholesterol (40-60) mg/dL Urine Protein 4+ H (Negative) Urine Glucose (UA) Trace H (Negative) Urine Blood Small H (Negative) Urine Bacteria Rare H (None) /hpf Hyaline Casts 7 H (0-2) /lpf Urine Mucus Rare H (None) /hpf 01/10/18 Range/Units 05:21 RBC (4.30-5.90) m/uL Hgb (13.0-17.5) gm/dL Hct (39.0-53.0) % Chloride (98-107) mmol/L Carbon Dioxide (22-30) mmol/L BUN (9-20) mg/dL Creatinine (0.66-1.25) mg/dL Calcium (8.4-10.2) mg/dL Total Creatine Kinase (55-170) U/L Troponin I (0.000-0.034) ng/mL Total Protein (6.3-8.2) g/dL Albumin (3.5-5.0) g/dL LDL Cholesterol, Calc 132 H (0-99) mg/dL HDL Cholesterol 32 L (40-60) mg/dL Urine Protein (Negative) Urine Glucose (UA) (Negative) Urine Blood (Negative) Urine Bacteria (None) /hpf Hyaline Casts (0-2) /lpf Urine Mucus (None) /hpf Microbiology - Last 24 Hours (Table) 01/09/18 16:36 Gram Stain - Preliminary Hip - Left Wound Culture - Preliminary H & H 01/09/18 Range/Units 16:36 Hgb 11.6 L (13.0-17.5) gm/dL Hct 35.0 L (39.0-53.0) % Coagulation 01/09/18 Range/Units 16:36 INR 1.0 (<1.2) Result Diagrams: 01/09/18 16:36 01/09/18 16:36 - Diagnostic results Hip CT: report reviewed, image reviewed (X-rays of his left femur and his computed tomography scan of his left hip is reviewed. There is a intramedullary hip screw intact and appears to be a [employer] TFN nail for a subtrochanteric hip fracture. 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 There is a plate that extends up his left femur which overrides the distal aspect of the femoral pat. There is no cables wires. I do not see any new fractures. The computed tomography scan results some fluid around the area and some possible fracture at the tip the greater trochanter but I think this is chronic due to his prior injury and surgery.) Assessment and Plan Assessment: Chronic left hip pain History of intramedullary hip screw for sub trochanteric proximal femur fracture , with apparent hypertrophic nonunion or malunion from from injury that sustained a couple of years ago with subsequent surgery at [facility] history of distal femur fracture and subsequent open reduction internal fixation left sided weakness with history of CVA superficial ecchymosis and blistering without apparent deep abscess or new fracture Plan: Chronic left hip pain History of intramedullary hip screw for sub trochanteric proximal femur fracture , with apparent hypertrophic nonunion or malunion from from injury that sustained a couple of years ago with subsequent surgery at [facility] history of distal femur fracture and subsequent open reduction internal fixation left sided weakness with history of CVA superficial ecchymosis and blistering without apparent deep abscess or new fracture I do not think the patient has any evidence of new fracture or deep injury at his left hip or thigh. 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 He also has history of open reduction internal fixation of the distal femur. He is left sided weakness given his stroke. He has great difficulty with any sort of ambulation and mobilization but I think his best option for further treatment for the left leg would be to pursue treatment at [facility] where he had his initial surgery and subsequent surgeries. He says they've been trying to contact him for further follow-up with is very difficult for him to arrange for transportation there. Perhaps case management could help her with arrangements for transportation and follow-up with their office once he is discharged here. We would not plan any surgical intervention on this admission or here at [place] for his left hip or thigh. He has some superficial ecchymosis which should heal well with expectant management. It is okay for him to try to mobilize with physical therapy if he is able.
--- NOTE | 2018-01-10 11:29 | P.PN ---
Subjective Progress Note Date: 01/10/18 Principal diagnosis: Left hip pain, weakness Currently doing okay, no chest pain or shortness of breath. Still with left hip and left thigh pain. Objective - Vital Signs Vital signs: Vital Signs Temp 97.5 F L 01/10/18 08:00 Pulse 76 01/10/18 08:00 Resp 16 01/10/18 08:00 BP 138/90 01/10/18 08:00 Pulse Ox 98 01/10/18 08:00 Intake & Output 01/09/18 01/10/18 01/10/18 18:59 06:59 18:59 Output Total 550 200 Balance -550 -200 Weight 86.636 kg 88 kg 88 kg Output: Urine 550 200 Other: Voiding Method Urinal # Voids 2 - Labs CBC & Chem 7: 01/09/18 16:36 01/09/18 16:36 Labs: Abnormal Lab Results - Last 24 Hours (Table) 01/09/18 01/09/18 01/09/18 Range/Units 16:36 16:36 16:36 RBC 3.78 L (4.30-5.90) m/uL Hgb 11.6 L (13.0-17.5) gm/dL Hct 35.0 L (39.0-53.0) % Chloride 109 H (98-107) mmol/L Carbon Dioxide 19 L (22-30) mmol/L BUN 33 H (9-20) mg/dL Creatinine 2.34 H (0.66-1.25) mg/dL Calcium 8.0 L (8.4-10.2) mg/dL Total Creatine Kinase (55-170) U/L Troponin I 0.046 H* (0.000-0.034) ng/mL Total Protein 5.5 L (6.3-8.2) g/dL Albumin 2.7 L (3.5-5.0) g/dL LDL Cholesterol, Calc (0-99) mg/dL HDL Cholesterol (40-60) mg/dL Urine Protein (Negative) Urine Glucose (UA) (Negative) Urine Blood (Negative) Urine Bacteria (None) /hpf Hyaline Casts (0-2) /lpf Urine Mucus (None) /hpf 01/09/18 01/09/18 01/10/18 Range/Units 18:17 21:51 05:21 RBC (4.30-5.90) m/uL Hgb (13.0-17.5) gm/dL Hct (39.0-53.0) % Chloride (98-107) mmol/L Carbon Dioxide (22-30) mmol/L BUN (9-20) mg/dL Creatinine (0.66-1.25) mg/dL Calcium (8.4-10.2) mg/dL Total Creatine Kinase 54 L 50 L (55-170) U/L Troponin I 0.040 H* 0.049 H* (0.000-0.034) ng/mL Total Protein (6.3-8.2) g/dL Albumin (3.5-5.0) g/dL LDL Cholesterol, Calc (0-99) mg/dL HDL Cholesterol (40-60) mg/dL Urine Protein 4+ H (Negative) Urine Glucose (UA) Trace H (Negative) Urine Blood Small H (Negative) Urine Bacteria Rare H (None) /hpf Hyaline Casts 7 H (0-2) /lpf Urine Mucus Rare H (None) /hpf 01/10/18 Range/Units 05:21 RBC (4.30-5.90) m/uL Hgb (13.0-17.5) gm/dL Hct (39.0-53.0) % Chloride (98-107) mmol/L Carbon Dioxide (22-30) mmol/L BUN (9-20) mg/dL Creatinine (0.66-1.25) mg/dL Calcium (8.4-10.2) mg/dL Total Creatine Kinase (55-170) U/L Troponin I (0.000-0.034) ng/mL Total Protein (6.3-8.2) g/dL Albumin (3.5-5.0) g/dL LDL Cholesterol, Calc 132 H (0-99) mg/dL HDL Cholesterol 32 L (40-60) mg/dL Urine Protein (Negative) Urine Glucose (UA) (Negative) Urine Blood (Negative) Urine Bacteria (None) /hpf Hyaline Casts (0-2) /lpf Urine Mucus (None) /hpf Microbiology - Last 24 Hours (Table) 01/09/18 16:36 Gram Stain - Preliminary Hip - Left Wound Culture - Preliminary Assessment and Plan Plan: #Accelerated hypertension, with end organ damage elevated creatinine Resolved Resume BP meds #Elevated troponins could be secondary to CKD, along with malignant hypertension Cardiology consult--- will check echocardiogram #Acute kidney injury on CKD stage III This could be secondary to malignant hypertension and possibly component of dehydration Gentle IV fluid hydration Follow up creatinine in a.m. Nephrology consult Avoid nephrotoxic meds Continue to monitor urine output Monitor renal function #Left hip erythema and blistering No apparent Infection DC Zosyn #Left foot eschar over the dorsum, present on admission Vascular surgery consult Local wound care #Chronic left intertrochanteric fracture Orthopedic's consult--no surgical intervention needed now, follow-up at [facility] orthopedic department Pain control #Chronic hepatitis C untreated, history of liver transplant on immunosuppressants Outpatient follow-up #History of seizures, most recent breakthrough seizure was over 5 months ago Continue with Keppra Seizure precautions #Diet as tolerated #Tobacco smoking abuse Patient counseled to quit smoking Nicotine replacement therapy offered #History of CVA Continue with aspirin and statin #Gen. weakness PT
[2018-01-10] MEDS: SODIUM CHLORIDE 0.45% 1,000 ML IV SCH (11:42)
--- NOTE | 2018-01-10 11:57 | CONS ---
CONSULTATION REASON FOR CONSULT: Renal failure. HISTORY OF PRESENT ILLNESS: Patient is a 67-year-old male who has a history of liver transplant with history of hepatitis C. He was admitted to the hospital with falls. He had developed left hip pain and was found to have left femoral intertrochanteric fracture. Patient had some kind of surgery for his left hip at [facility]. He presented to our ER again with complaints of not feeling well. He also had left hip pain again. In the ER, patient was found to have elevated blood pressure with the blood pressure of 210/98. Serum creatinine was at 2.34 and review of previous lab shows a serum creatinine of 1.79 on 12/20 and 1.16 on 12/16/2015. Patient denies use of any nonsteroidal anti- inflammatory agents prior to admission. He is maintained on cyclosporine along with CellCept for his liver transplant. Patient received IV Vasotec for uncontrolled hypertension on initial admission. He states he is currently voiding and patient has not received any IV contrast recently. PAST MEDICAL HISTORY: Significant for history of hepatitis C, history of liver transplant, hypertension, seizure disorder, history of stroke and left-sided hemiparesis, coronary artery disease with coronary artery stent placement. PAST SURGICAL HISTORY: Cardiac catheterization, coronary stents, surgery on left hip, details not available. SOCIAL HISTORY: Positive for smoking. No history of drug abuse or alcohol abuse. REVIEW OF SYSTEMS: As per HPI. Other systems negative. MEDICATIONS: Prior to admission included Norvasc, Gengraf, Lopressor, CellCept, vitamin D3, iron, Keppra. ALLERGIES: Include BENADRYL. PHYSICAL EXAMINATION: Patient is currently comfortable, awake. He is not in any acute distress. Blood pressure was 138/90, heart rate 76 per minute. Patient is afebrile. Examination of the heart, S1, S2. Examination of the lungs, bilateral breath sounds are heard. Abdomen is soft, nontender. Examination of the lower extremities shows trace edema. STEEL UNLOADER exam shows the patient has left hemiparesis with contracture noted in his left upper extremity. LABS: Show sodium 139, potassium 4.0, chloride 109, BUN 33, serum creatinine 2.34, CK was 3.2. Troponin 0.046. UA shows 4+ protein and trace glucose. Blood is small, hyaline cast 7. Chest x-ray on admission shows no acute processes. ASSESSMENT: 1. Acute kidney injury, rule out obstructive uropathy. I will check a bladder scan as well as ultrasound of the kidneys. Blood pressure is not low, in fact it is high and patient has not received any nonsteroidal anti-inflammatory agents prior to admission. I will start him on gentle IV hydration and repeat labs in a.m. 2. Chronic kidney disease, NKF stage III, with previous creatinine at 1.7 in July of 2017, as well as in October of 2017. This is most likely secondary to use of calcium urine inhibitors in the form of cyclosporine for the liver transplant. UA does show significant proteinuria. This will need to be quantified and baseline serologies will be ordered to complete the workup for proteinuria. 3. History of hepatitis C and history of liver transplant, maintained on cyclosporine and CellCept. We will check trough levels for cyclosporine. 4. Elevated troponins, being followed by Cardiology, CK level was not significantly elevated. 5. History of cerebrovascular accident with left hemiparesis. 6. History of falls. 7. Hypertension uncontrolled initially, now much better controlled, maintained on Norvasc, Lopressor. PLAN: 1. Check protein creatinine ratio. Check a cyclosporine level. Start gentle IV hydration. Repeat labs in a.m. and check baseline serologies for workup for proteinuria. 2. If the blood pressure is elevated, the Lopressor can be increased. I will avoid significant saline administration. We will use half-normal saline for IV hydration. Thank you for this consultation. Will continue to follow the patient with you during his hospitalization. MMODL / OSMARN: [id number] /
--- NOTE | 2018-01-10 12:19 | ECHOF ---
Referral Reason:abn trop MEASUREMENTS -------- HEIGHT: 152.4 cm WEIGHT: 88.0 kg BP: 138/90 IVSd: 1.4 cm (0.6 - 1.1) LVIDd: 4.4 cm (3.9 - 5.3) LVPWd: 1.7 cm (0.6 - 1.1) IVSs: 2.0 cm LVIDs: 3.3 cm LVPWs: 1.8 cm LA Diam: 3.9 cm (2.7 - 3.8) LAESV Index (A-L): 51.11 ml/m Ao Diam: 3.5 cm (2.0 - 3.7) AV Cusp: 1.9 cm (1.5 - 2.6) LA Diam: 4.4 cm (2.7 - 3.8) MV EXCURSION: 20.130 mm (> 18.000) MV EF SLOPE: 57 mm/s (70 - 150) EPSS: 1.2 cm MV E Sina: 0.62 m/s MV DecT: 325 ms MV A Sina: 1.12 m/s MV E/A Ratio: 0.55 RAP: 5.00 mmHg RVSP: 27.93 mmHg FINDINGS -------- Sinus rhythm. This was a technically adequate study. The left ventricular size is normal. There is moderate concentric left ventricular hypertrophy. O verall left ventricular systolic function is normal with, an EF between 55 - 60 %. The right ventricle is normal in size. The left atrium is moderately dilated. LA is severely dilated >40 ml/m2 The right atrial size is normal. There is mild aortic valve sclerosis. There is no evidence of aortic regurgitation. Mild mitral annular calcification present. Mild mitral regurgitation is present. Mild tricuspid regurgitation present. There is no evidence of pulmonary hypertension. The right v entricular systolic pressure, as measured by Doppler, is 27.93mmHg. There is no pulmonic regurgitation present. The aortic root size is normal. There is no pericardial effusion. CONCLUSIONS -------- 1. The left ventricular size is normal. 2. There is moderate concentric left ventricular hypertrophy. 3. The right ventricle is normal in size. 4. The left atrium is moderately dilated. 5. LA is severely dilated >40 ml/m2 6. The right atrial size is normal. 7. There is mild aortic valve sclerosis. 8. Mild mitral annular calcification present. 9. Mild mitral regurgitation is present. 10. Mild tricuspid regurgitation present. 11. There is no evidence of pulmonary hypertension. 12. The right ventricular systolic pressure, as measured by Doppler, is 27.93mmHg. 13. There is no pulmonic regurgitation present. 14. The aortic root size is normal. 15. There is no pericardial effusion. LABEL SEWER: Leanna Tabares RDCS
--- NOTE | 2018-01-10 12:58 | US ---
EXAMINATION TYPE: US kidneys/renal and bladder DATE OF EXAM: 01/10/2018 COMPARISON: US 2009 CLINICAL HISTORY: Renal Failure. EXAM MEASUREMENTS: Right Kidney: 11.3 x 4.8 x 5.0 cm Left Kidney: 10.4 x 4.8 x 5.3 cm Post Void Residual Volume: 502.4 mL Right Kidney: No hydronephrosis or masses seen Left Kidney: Difficult to evaluate. Patient could not roll over and said the probe was very painful o n left side. Bladder: echogenic masses seen within bladder. ? thick walled bladder. Bilateral Jets seen: Yes Normal Post Void Residual: No There is increased cortical echogenicity within the right kidney. Left kidney is poorly visualized. IMPRESSION: Indeterminate abnormalities seen within the bladder, correlate for cystitis, possible hemorrhage, fol low-up recommended. Limited exam. Findings compatible with medical renal disease.
[2018-01-10] MEDS: HYDROcodone/APAP 5-325MG 1 EACH TAB PO PRN (20:04)
[2018-01-10] MEDS: cefTRIAXone IN SWFI 1,000 MG/10 ML SYRINGE IVP SCH (23:13)
[2018-01-11] MEDS: SODIUM CHLORIDE 0.45% 1,000 ML IV SCH (06:46)
[2018-01-11 09:07] LABS: Calcium 7.6 mg/dL (8.4-10.2); Potassium 4.1 mmol/L (3.5-5.1)
[2018-01-11] MEDS: HEPARIN SODIUM,PORCINE 5,000 UNIT/ML 1 ML VIAL SQ SCH ×3 (10:53→23:00)
[2018-01-11] MEDS: METOPROLOL TARTRATE 50 MG TAB PO SCH (10:54)
[2018-01-11] MEDS: MYCOPHENOLATE MOFETIL 500 MG TAB PO SCH ×2 (10:54→19:49)
[2018-01-11] MEDS: CHOLECALCIFEROL 1,000 UNIT TAB PO SCH (10:54)
[2018-01-11] MEDS: FERROUS SULFATE 325 MG TAB PO SCH (10:55)
[2018-01-11] MEDS: ASPIRIN 325 MG TAB PO SCH (10:55)
[2018-01-11] MEDS: levETIRAcetam 500 MG TAB PO SCH ×2 (10:55→19:48)
[2018-01-11] MEDS: amLODIPine 5 MG TAB PO SCH ×2 (10:55→19:48)
[2018-01-11] MEDS: cefTRIAXone IN SWFI 1,000 MG/10 ML SYRINGE IVP SCH (10:58)
--- NOTE | 2018-01-11 11:20 | P.PN ---
Subjective Progress Note Date: 01/11/18 Principal diagnosis: abn trop This is a 67-year-old gentleman with history of hepatitis C status post liver transplant, hypertension, renal insufficiency, seizures, who presented to the hospital after experiencing a fall at home. He presented with complaints of left hip pain. Cardiology consultation was initially requested because of elevated troponins. Patient denied having any chest discomfort. He was noted to have some leg edema, left leg greater than the right side which is the area he had the injury. Patient was seen in consultation by Dr. Darnell, an echocardiogram with Doppler study was performed which revealed a normal ejection fraction of 55-60%. Venous duplex study was performed of the left lower extremity which was negative for DVT. Blood pressure 148/60 with a heart rate in the 60s. Sodium 137, potassium 4.1, BUN 29, creatinine 2.4. Troponin 0.04, 0.04, 0.04. Patient was seen and examined this morning, continues to be quite weak, mild left hip pain discomfort persists. Objective - Vital Signs Vital signs: Vital Signs Temp 98.2 F 01/11/18 08:00 Pulse 61 01/11/18 08:00 Resp 16 01/11/18 08:00 BP 148/67 01/11/18 08:00 Pulse Ox 98 01/11/18 08:00 Intake & Output 01/10/18 01/11/18 01/11/18 18:59 06:59 18:59 Intake Total 480 240 150 Output Total 300 200 100 Balance 180 40 50 Weight 88 kg 89.5 kg Intake: Oral 480 240 150 Output: Urine 300 200 100 Other: Voiding Method Urinal Urinal - Exam PHYSICAL EXAMINATION: GENERAL: 67-year-old gentleman appears frail and weak, in no acute distress at the time of my examination HEENT: Head is atraumatic, normocephalic. Pupils equal, round. Sclera anicteric. Conjunctiva are clear. Mucous membranes of the mouth are moist. Neck is supple. There is no elevated jugular venous pressure.] bruit is heard. HEART EXAMINATION: Heart S1, S2 normal. No murmur or gallop heard. CHEST EXAMINATION: Lungs are clear to auscultation and precussion. No chest wall tenderness is noted on palpation or with deep breathing. ABDOMEN: Soft, nontender. Bowel sounds are heard. No organomegaly noted. EXTREMITIES: 2+ peripheral pulses with evidence of peripheral edema , left leg greater than right , no calf tenderness noted]. NEUROLOGIC [ptient is awake, alert and oriented OX3. . - Labs CBC & Chem 7: 01/09/18 16:36 01/11/18 05:15 Labs: Abnormal Lab Results - Last 24 Hours (Table) 01/10/18 01/11/18 Range/Units 12:12 05:15 Chloride 110 H (98-107) mmol/L Carbon Dioxide 18 L (22-30) mmol/L BUN 29 H (9-20) mg/dL Creatinine 2.42 H (0.66-1.25) mg/dL Calcium 7.6 L (8.4-10.2) mg/dL U Random Total Protein >600 H (<12) mg/dL Microbiology - Last 24 Hours (Table) 01/09/18 16:36 Gram Stain - Preliminary Hip - Left Wound Culture - Preliminary Gram Neg Bacilli Assessment and Plan Plan: Assessment and plan #1 abnormal troponin, likely secondary to renal failure. Patient denies any chest discomfort. Echocardiogram with Doppler study revealed a normal left ventricular systolic function. #2 fall with left hip pain #3 hepatitis C with cirrhosis, status post liver transplant #4 Left leg edema, DVT ruled out by venous duplex study Plan From cardiology's perspective, we'll follow this patient along with you now on an as-needed basis only, please don't hesitate to call with any questions. DNP note has been reviewed, I agree with a documented findings and plan of care. Patient was seen and examined.
[2018-01-11 12:31] LABS: DNA Double-Stranded NEGATIVE (NEGATIVE); Hepatitis C IgG Antibody Reactive (Non-Reactive)
--- NOTE | 2018-01-11 12:46 | P.PN ---
Subjective Progress Note Date: 01/11/18 Principal diagnosis: Left hip pain, weakness Patient is still weak. Has not gotten out of bed yet. He is making minimal amount of urine. No chest pain or shortness of breath, no abdominal pain Objective - Vital Signs Vital signs: Vital Signs Temp 98.2 F 01/11/18 08:00 Pulse 61 01/11/18 08:00 Resp 16 01/11/18 08:00 BP 148/67 01/11/18 08:00 Pulse Ox 98 01/11/18 08:00 Intake & Output 01/10/18 01/11/18 01/11/18 18:59 06:59 18:59 Intake Total 480 240 150 Output Total 300 200 100 Balance 180 40 50 Weight 88 kg 89.5 kg Intake: Oral 480 240 150 Output: Urine 300 200 100 Other: Voiding Method Urinal Urinal - Exam Constitutional: No acute distress, patient is reporting left hip pain, patient seems to be upset, he is using foul language and not cooperating with history taking. Eyes: Anicteric sclerae, moist conjunctiva, no lid-lag Pupils equal round reactive to light ENMT: NC/AT Oropharynx clear, no erythema, or exudates Neck: Supple, FROM, no masses, or JVD No carotid bruits No thyromegaly Lungs: Clear to auscultation Clear to percussion Normal respiratory effort, no accessory muscle use Cardiovascular: Heart regular in rate and rhythm, No murmurs, gallops, or rubs No peripheral edema Abdominal: Soft Nontender, no guarding, rebound or rigidity Abdomen moving with respiration Normoactive bowel sounds No hepatomegaly, No splenomegaly No palpable mass No abdominal wall hernia noted Skin: Patient has eschar over his left foot 2 x 2 centimeter over the lateral aspect of the dorsum of the left foot Patient also has erythema and blistering 10 x 10 cm over his left hip tender to palpation Normal temperature, tone, texture, turgor No induration No subcutaneous nodules No rash, Extremities: Abduction of the left hip, external rotation of the left leg, tenderness to palpation of the left hip No digital cyanosis No clubbing Pedal pulses intact and symmetrical Radial pulses intact and symmetrical No calf tenderness Psychiatric: Alert and oriented to person, place and time Patient is paranoid fair judgment Neuro Muscles Strength 5/5 over the right upper and lower extremity, left lower extremity could not he tested due to severe left hip pain, left upper extremity with contractures in his forearm and left hand due to prior stroke Sensation to light touch grossly present throughout Cranial nerves II-XII grossly intact No focal sensory deficits Lymphatics: no palpable cervical or supraclavicular , or inguinal lymph nodes - Labs CBC & Chem 7: 01/09/18 16:36 01/11/18 05:15 Labs: Abnormal Lab Results - Last 24 Hours (Table) 01/10/18 01/11/18 Range/Units 12:12 05:15 Chloride 110 H (98-107) mmol/L Carbon Dioxide 18 L (22-30) mmol/L BUN 29 H (9-20) mg/dL Creatinine 2.42 H (0.66-1.25) mg/dL Calcium 7.6 L (8.4-10.2) mg/dL U Random Total Protein >600 H (<12) mg/dL Microbiology - Last 24 Hours (Table) 01/09/18 16:36 Gram Stain - Preliminary Hip - Left Wound Culture - Preliminary Gram Neg Bacilli Assessment and Plan Plan: #Accelerated hypertension, with end organ damage elevated creatinine Resolved Resume BP meds #Elevated troponins could be secondary to CKD, along with malignant hypertension Echocardiogram checked, within normal limits. Cardiology signed off #Acute kidney injury on CKD stage III This could be secondary to malignant hypertension and possibly component of dehydration Increase IV fluid hydration with normal saline 100 mL per hour as blood pressure is currently controlled. Follow up creatinine in a.m. Nephrology is following Avoid nephrotoxic meds Continue to monitor urine output Monitor renal function #Left hip erythema and blistering Continue ceftriaxone for possible infection #Chronic left intertrochanteric fracture Orthopedic's consult--no surgical intervention needed now, follow-up at [facility] Pain control #Chronic hepatitis C untreated, history of liver transplant on immunosuppressants Check cyclosporine level Continue CellCept and cyclosporine #History of seizures, most recent breakthrough seizure was over 5 months ago Continue with Keppra Seizure precautions #Diet as tolerated #Tobacco smoking abuse Patient counseled to quit smoking Nicotine replacement therapy offered #History of CVA Continue with aspirin and statin #Gen. weakness PT
--- NOTE | 2018-01-11 13:19 | PN ---
PROGRESS NOTE Patient is seen for followup for acute kidney injury. His creatinine was 2.3 on 01/09/2018. It is at 2.42 today. The patient is maintained on IV fluids. Previous creatinine on 12/20/2017 was 1.79, which appears to be his baseline. The patient is maintained on cyclosporine for his liver transplant. He does have significant proteinuria for which for which basic workup has been ordered. Currently, patient is maintained on IV fluids. He states he feels okay and denies any chest pain, shortness of breath, nausea, or vomiting. PHYSICAL EXAMINATION: On examination, blood pressure is 148/67, heart rate 61 per minute. Patient is afebrile. EXAMINATION OF THE HEART: S1, S2. EXAMINATION OF THE LUNGS: Bilateral breath sounds are heard. No crackles or wheezing is heard. Abdomen is soft, nontender. Examination of the lower extremities shows no significant edema. The patient has left hemiparesis with contracture in the left upper extremity. LAB: Labs show sodium 137, potassium 4.1, chloride 110, CO2 is 18, BUN 29, serum creatinine 2.42. JOCELYNE, C3, C4 are negative. The patient has more than 6 grams of proteinuria based on the urine protein to creatinine ratio. ASSESSMENT: 1. 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 Patient does have significant proteinuria of more than 6 grams based on his urine protein creatinine ratio. The JOCELYNE and complements are negative. Further tests are pending. The patient is maintained on cyclosporine as part of his liver transplant immunosuppression. At this time, I will continue that. The patient may need a kidney biopsy. This can be done as outpatient as well. Currently, there are no other nephrotoxic agents on board. Patient is maintained on IV fluids which I will continue. Cyclosporine trough level has been ordered which is currently pending. A postvoid scan was done to make sure there is no underlying urine retention. 2. Chronic kidney disease, previous creatinine about 1.7 to 1.8 mg/dL, etiologies either underlying chronic GN versus cyclosporine toxicity. NKF stage IIIB. Ultrasound was unremarkable. 3. Proteinuria, currently being worked up. 4. Uncontrolled hypertension, currently improved. 5. Left hip pain with history of left intertrochanteric fracture, status post previous surgery at [facility]. 6. Elevated troponins. 7. History of seizures, maintained on Keppra. 8. Metabolic acidosis, will start oral bicarb. PLAN: Continue IV fluids. Await rest of the serological workup. The patient will need outpatient follow up. He may likely need a kidney biopsy down the road. At this time, his renal function has not significantly improved since admission. Start oral sodium bicarb. Continue IV fluids. Follow up on trough cyclosporine level. Repeat labs in a.m. We will follow up on the rest of the serologies. [email or web address] / IJN: [id number] /
[2018-01-11] MEDS: SODIUM CHLORIDE 0.9% 1,000 ML IV SCH ×2 (14:08→19:49)
[2018-01-11] MEDS ORDERED: NICOTINE 21MG/24HR PATCH TRANSDERM STA (19:13)
[2018-01-11] MEDS: CEFEPIME 2 GM in SODIUM CHLORIDE 0.9% 50 ML IVPB SCH (19:47)
[2018-01-11] MEDS: SODIUM BICARBONATE TAB 650 MG TAB PO SCH (19:49)
[2018-01-11] MEDS: MORPHINE SULFATE 2 MG/ML SYRINGE IVP PRN (23:07)
--- NOTE | 2018-01-11 23:40 | P.CONS ---
History of Present Illness - Reason for Consult Consult date: 01/11/18 - Chief Complaint Fall - History of Present Illness 67-year-old male presents to Hospital status post fall. This gentleman who is a poor historian is having some difficulties with orientation. He appears to know that he is at the hospital, however during the evaluation the roommate opens up a container, the patient looks in that direction as wonders if his dog is trying to get his attention. He is undirected that he is in the hospital and seems to reoriente at that time. He certainly is vague but relates that he has had a liver transplantation and that he has had multiple falls over time. Several years ago he had a severe fall resulting in a fracture to his left hip and the resultant multiple surgeries because of the nonhealing that he suffered. He's also had a stroke and has persistent left- sided weakness. The patient relates the most recent fall resulting with him being on the floor and dragging himself resulting in the injury to the tissue to the left hip area. He is not clear if he's had fever. When he is able to fully understand that a consult as an infectious diseases evaluation, he relates that he has chronic active hepatitis C. He was offered treatment after his liver transplant apparently has not taken specific therapy. Although then he does state he was treated for his hepatitis C in the past. The patient apparently follows locally for his hepatitis C but does not keep appointments. Review of Systems 67-year-old male, feels poorly, feels weak and has pain to the left hip. At rest the pain is 0 with attempts for ambulation and goes to a 9 or 10 HEENT:Denies headache or acute visual change. Denies sinus or mouth discomforts. Denies neck stiffness or pain. Denies significant oral cavity pain. Denies difficulty on swallowing. Lungs: Denies significant shortness of breath, cough, sputum production, or hemoptysis. Cardiovascular: Denies significant shortness of breath, chest pain, chest wall pain, orthopnea, dyspnea on exertion, syncope Gastrointestinal:Denies nausea, vomiting, diarrhea, constipation, hematemesis, melena, hematochezia. No no significant change of bowel habit noticed. Musculoskeletal: denies significant myalgias or arthralgias. No new joint swelling. Denies new back pain. Skin: As per the HPI has the abrasion to the left hip area Neuro: Denies headache or visual change. Denies any new onset weakness or difficulty with ambulation. Denies falls or seizures. Psychiatric:Denies anxiety or depression. Endocrine: Severe chronic fatigue has been losing weight Past Medical History Past Medical History: Cancer, CVA/TIA, Hypertension, Liver Disease, Musculoskeletal Disorder (History of multiple surgeries of the left lower extremity had the left hip and distal femur), Seizure Disorder, Vascular Disorder Additional Past Medical History / Comment(s): left sided weakness from stroke, HEPATITIS C History of Any Multi-Drug Resistant Organisms: None Reported Past Surgical History: Heart Catheterization With Stent Additional Past Surgical History / Comment(s): Liver transplant, LEFT FEMUR REPAIR x2 Date of Last Stent Placement:: 2012 Past Psychological History: No Psychological Hx Reported Additional Psychological History / Comment(s): Single. Disabled. Status post liver transplant. History of injection drug use. Chronic tobacco smoker denies current alcohol use. Denied experience. No animal exposures Smoking Status: Current every day smoker Past Alcohol Use History: None Reported Past Drug Use History: None Reported - Past Family History Mother Family Medical History: Congestive Heart Failure (CHF) Father Family Medical History: Congestive Heart Failure (CHF), Myocardial Infarction ( [place]) Medications and Allergies Home Medications and Allergies Comment(s): Current Medications Acetaminophen (Tylenol Tab) 650 mg PO Q4HR PRN PRN Reason: mild Pain Hydrocodone Bitart/Acetaminophen ([place] 5-325) 1 each PO Q6HR PRN PRN Reason: moderate Pain Last Admin: 01/10/18 20:04 Dose: 1 each Amlodipine Besylate (Norvasc) 5 mg PO BID [facility] Last Admin: 01/11/18 19:48 Dose: 5 mg Aspirin (Aspirin) 325 mg PO DAILY [facility] Last Admin: 01/11/18 10:55 Dose: 325 mg Cholecalciferol (Vitamin D3) 3,000 unit PO DAILY [facility] Last Admin: 01/11/18 10:54 Dose: 3,000 unit Cyclosporine (Neoral) 75 mg PO HS [facility] Last Admin: 01/11/18 10:54 Dose: 75 mg Cyclosporine (Neoral) 75 mg PO QAM [facility] Last Admin: 01/11/18 11:09 Dose: 75 mg Ferrous Sulfate (Feosol) 325 mg PO DAILY [facility] Last Admin: 01/11/18 10:55 Dose: 325 mg Heparin Sodium (Porcine) (Heparin) 5,000 unit SQ Q8HR [facility] Last Admin: 01/11/18 23:00 Dose: 5,000 unit Sodium Chloride (Saline 0.9%) 1,000 mls @ 100 mls/hr IV .Q10H [facility] Last Admin: 01/11/18 19:49 Dose: 100 mls/hr Cefepime HCl 2 gm/ Sodium (Chloride) 50 mls @ 100 mls/hr IVPB Q8H [facility] Last Admin: 01/11/18 19:47 Dose: 100 mls/hr Levetiracetam (Keppra) 1,000 mg PO Q12HR [facility] Last Admin: 01/11/18 19:48 Dose: 1,000 mg Metoprolol Tartrate (Lopressor) 50 mg PO DAILY [facility] Last Admin: 01/11/18 10:54 Dose: 50 mg Morphine Sulfate (Morphine Sulfate (Inj)) 4 mg IVP Q2H PRN PRN Reason: severe Pain/Discomfort Last Admin: 01/11/18 23:07 Dose: 4 mg Mycophenolate Mofetil (Cellcept) 500 mg PO BID [facility] Last Admin: 01/11/18 19:49 Dose: 500 mg Nicotine (Habitrol 21mg/24hr Patch) 1 patch TRANSDERM DAILY [facility] Nitroglycerin (Nitrostat) 0.4 mg SUBLINGUAL Q5M PRN PRN Reason: Chest Pain Sodium Bicarbonate (Sodium Bicarbonate Tab) 650 mg PO BID [facility] Last Admin: 01/11/18 19:49 Dose: 650 mg Home Medications Medication Instructions Recorded Confirmed Type Aspirin 81 mg PO HS 09/16/15 01/09/18 History amLODIPine BESYLATE [Norvasc] 5 mg PO BID 09/16/15 01/09/18 History Cyclosporine, Modified [Gengraf] 75 mg PO HS 12/16/15 01/09/18 History Cyclosporine, Modified [Gengraf] 75 mg PO [facility] 12/16/15 01/09/18 History Metoprolol Tartrate [Lopressor] 50 mg PO DAILY 12/16/15 01/09/18 History Mycophenolate Mofetil [Cellcept] 500 mg PO BID 12/16/15 01/09/18 History Cholecalciferol [Vitamin D3] 3,000 unit PO DAILY 01/09/18 01/09/18 History Ferrous Sulfate [Feosol] 325 mg PO DAILY 01/09/18 01/09/18 History levETIRAcetam [Keppra] 1,000 mg PO Q12HR 01/09/18 01/09/18 History Allergies Allergy/AdvReac Type Severity Reaction Status Date / Time diphenhydramine HCl Allergy Unknown Verified 01/09/18 17:20 [From Benadryl] Physical Exam Vitals: Vital Signs Temp Pulse Pulse Resp BP Pulse Ox 01/11/18 20:00 98.4 F 63 16 146/70 97 01/11/18 16:00 98.2 F 60 16 163/74 99 01/11/18 15:29 61 14 01/11/18 12:00 98.0 F 61 14 166/78 99 01/11/18 08:00 98.2 F 61 67 16 148/67 98 01/11/18 04:00 61 59 L 17 176/77 99 01/11/18 00:00 57 L 57 L 18 157/74 100 Intake and Output 01/11/18 01/11/18 01/12/18 14:59 22:59 06:59 Intake Total 300 840 Output Total 350 425 100 Balance -50 415 -100 Intake: Oral 300 840 Output: Urine 350 425 100 Other: Voiding Method Urinal Urinal Pleasant 67-year-old male who apparently is much more cooperative than he was in the recent past. While laying supine lates he is quite comfortable HEENT: Anicteric conjunctiva are pink and moist nasal mucosa grossly intact without significant lesions, there is no thrush. Neck: The neck is supple without significant lymphadenopathy or thyromegaly. Lungs: Good bilateral air entry without significant crackles or wheezing. There is no significant bronchial sounds. There is no egophony or dullness. Heart: Regular rate and rhythm with an audible S1-S2, no S3 no S4. There is no significant murmur click or rub, PMI was nondisplaced. Abdomen: Positive bowel sounds soft and nontender without palpable masses or organomegaly. There was no guarding or rebound. Extremities: The arms or other abnormality but he does have evidence of the IV site and some ecchymosis from the recent fall. No open lesions are seen in the arms. The left trochanteric area and upper thigh has evidence of the abrasion there is some scant drainage. It is serosanguineous in nature. There is surrounding erythema and it is tender to touch. Motion to the left hip does cause him discomfort Neuro: Patient is awake and alert his orientation can be directed but he does drift off. He has the left-sided weakness from his prior stroke, Results CBC & Chem 7: 01/09/18 16:36 01/11/18 05:15 Labs: Abnormal Lab Results - Last 24 Hours (Table) 01/11/18 01/11/18 Range/Units 05:15 05:15 Chloride 110 H (98-107) mmol/L Carbon Dioxide 18 L (22-30) mmol/L BUN 29 H (9-20) mg/dL Creatinine 2.42 H (0.66-1.25) mg/dL Calcium 7.6 L (8.4-10.2) mg/dL Hep B Core Total Ab Reactive H (Non-Reactive) Hep C IgG Ab Reactive H (Non-Reactive) Laboratory Results WBC 7.6 k/uL (3.8-10.6) 01/09/18 16:36 RBC 3.78 m/uL (4.30-5.90) L 01/09/18 16:36 Hgb 11.6 gm/dL (13.0-17.5) L 01/09/18 16:36 Hct 35.0 % (39.0-53.0) L 01/09/18 16:36 MCV 92.7 fL (80.0-100.0) 01/09/18 16:36 MCH 30.8 pg (25.0-35.0) 01/09/18 16:36 MCHC 33.2 g/dL (31.0-37.0) 01/09/18 16:36 RDW 13.9 % (11.5-15.5) 01/09/18 16:36 Plt Count 253 k/uL (150-450) 01/09/18 16:36 Neutrophils % 63 % 01/09/18 16:36 Lymphocytes % 27 % 01/09/18 16:36 Monocytes % 6 % 01/09/18 16:36 Eosinophils % 2 % 01/09/18 16:36 Basophils % 0 % 01/09/18 16:36 Neutrophils # 4.8 k/uL (1.3-7.7) 01/09/18 16:36 Lymphocytes # 2.0 k/uL (1.0-4.8) 01/09/18 16:36 Monocytes # 0.5 k/uL (0-1.0) 01/09/18 16:36 Eosinophils # 0.2 k/uL (0-0.7) 01/09/18 16:36 Basophils # 0.0 k/uL (0-0.2) 01/09/18 16:36 PT 10.0 sec (9.0-12.0) 01/09/18 16:36 INR 1.0 (<1.2) 01/09/18 16:36 APTT 23.9 sec (22.0-30.0) 01/09/18 16:36 Sodium 137 mmol/L (137-145) 01/11/18 05:15 Potassium 4.1 mmol/L (3.5-5.1) 01/11/18 05:15 Chloride 110 mmol/L (98-107) H 01/11/18 05:15 Carbon Dioxide 18 mmol/L (22-30) L 01/11/18 05:15 Anion Gap 9 mmol/L 01/11/18 05:15 BUN 29 mg/dL (9-20) H 01/11/18 05:15 Creatinine 2.42 mg/dL (0.66-1.25) H 01/11/18 05:15 Est GFR (CKD-EPI)AfAm 31 (>60 ml/min/1.73 sqM) 01/11/18 05:15 Est GFR (CKD-EPI)NonAf 27 (>60 ml/min/1.73 sqM) 01/11/18 05:15 Glucose 77 mg/dL (74-99) 01/11/18 05:15 POC Glucose (mg/dL) 87 mg/dL (75-99) 01/09/18 16:13 POC Glu Skating [employer] ID Effie Be 01/09/18 16:13 Plasma Lactic Acid Kaz 0.7 mmol/L (0.7-2.0) 01/09/18 18:19 Calcium 7.6 mg/dL (8.4-10.2) L 01/11/18 05:15 Total Bilirubin 0.6 mg/dL (0.2-1.3) 01/09/18 16:36 AST 34 U/L (17-59) 01/09/18 16:36 ALT 37 U/L (21-72) 01/09/18 16:36 Alkaline Phosphatase 84 U/L (38-126) 01/09/18 16:36 Total Creatine Kinase 50 U/L (55-170) L 01/10/18 05:21 CK-MB (CK-2) 1.9 ng/mL (0.0-2.4) 01/10/18 05:21 CK-MB (CK-2) Rel Index 3.8 01/10/18 05:21 Troponin I 0.049 ng/mL (0.000-0.034) H* 01/10/18 05:21 Total Protein 5.5 g/dL (6.3-8.2) L 01/09/18 16:36 Albumin 2.7 g/dL (3.5-5.0) L 01/09/18 16:36 Triglycerides 112 mg/dL (<150) 01/10/18 05:21 Cholesterol 186 mg/dL (<200) 01/10/18 05:21 LDL Cholesterol, Calc 132 mg/dL (0-99) H 01/10/18 05:21 HDL Cholesterol 32 mg/dL (40-60) L 01/10/18 05:21 Urine Color Yellow 01/09/18 18:17 Urine Appearance Clear (Clear) 01/09/18 18:17 Urine pH 6.0 (5.0-8.0) 01/09/18 18:17 Ur Specific [place] 1.016 (1.001-1.035) 01/09/18 18:17 Urine Protein 4+ (Negative) H 01/09/18 18:17 Urine Glucose (UA) Trace (Negative) H 01/09/18 18:17 Urine Ketones Negative (Negative) 01/09/18 18:17 Urine Blood Small (Negative) H 01/09/18 18:17 Urine Nitrite Negative (Negative) 01/09/18 18:17 Urine Bilirubin Negative (Negative) 01/09/18 18:17 Urine Urobilinogen <2.0 mg/dL (<2.0) 01/09/18 18:17 Ur Leukocyte Esterase Negative (Negative) 01/09/18 18:17 Urine RBC <1 /hpf (0-5) 01/09/18 18:17 Urine WBC 2 /hpf (0-5) 01/09/18 18:17 Ur Squamous Epith Cells <1 /hpf (0-4) 01/09/18 18:17 Urine Bacteria Rare /hpf (None) H 01/09/18 18:17 Hyaline Casts 7 /lpf (0-2) H 01/09/18 18:17 Urine Mucus Rare /hpf (None) H 01/09/18 18:17 Urine Sperm Rare /hpf (None) 01/09/18 18:17 Ur Random Creatinine 101.3 mg/dL 01/10/18 12:12 U Random Total Protein >600 mg/dL (<12) H 01/10/18 12:12 Cyclosporine 129 ng/mL (100-400) 01/10/18 05:21 JOCELYNE Screen NEGATIVE (NEGATIVE) 01/10/18 05:21 Double Strand DNA Ab NEGATIVE (NEGATIVE) 01/11/18 05:15 Anti-DNA Ab Interp 1.0 IU/mL 01/11/18 05:15 Complement C3 109.0 mg/dL (80.0-207.0) 01/10/18 05:21 Complement C4 24.8 mg/dL (10.0-53.0) 01/10/18 05:21 Hep Bs Antigen Non-Reactive (Non-Reactive) 01/11/18 05:15 Hep B Core Total Ab Reactive (Non-Reactive) H 01/11/18 05:15 Hep C IgG Ab Reactive (Non-Reactive) H 01/11/18 05:15 Microbiology 01/09/18 16:36 Hip - Left Gram Stain - Preliminary 01/09/18 16:36 Hip - Left Wound Culture - Preliminary Gram Neg Bacilli Assessment and Plan (1) Fall Current Visit: No Status: Acute Code(s): W19.XXXA - UNSPECIFIED FALL, INITIAL ENCOUNTER SNOMED Code(s): 2253278 (2) Gram-negative infection Narrative/Plan: 67-year-old male with a complex past medical history including liver transplant, stroke with left-sided weakness, multiple falls, history of left intertrochanteric fracture with poor healing presents to Hospital after another fall feeling very poorly. There is evidence of the distinct abrasion to the left hip area and culture at this point in time showing evidence of gram- negative bacilli. Given his history there would be concerns to pseudomonas as well as other gram-negative organisms and consequently Rocephin as transitioned to Maxipime to ensure coverage for Pseudomonas. Local wound care with Silvadene was requested Culture is in process and will further help direct his antibiotic therapy For smoking cessation the nicotine replacement patches applied today. Pain control rest is adequate. The patient's hepatitis C viral load will be obtained and the genotype to see if further treatment is necessary Current Visit: Yes Status: Acute Code(s): A49.9 - BACTERIAL INFECTION, UNSPECIFIED SNOMED Code(s): 844447750 (3) Open wound of left hip Current Visit: Yes Status: Acute Code(s): S71.002A - UNSPECIFIED OPEN WOUND , LEFT HIP, INITIAL ENCOUNTER SNOMED Code(s): 237115489
[2018-01-12] MEDS: CEFEPIME 2 GM in SODIUM CHLORIDE 0.9% 50 ML IVPB SCH ×3 (03:24→19:39)
[2018-01-12 06:34] LABS: Basophils % (A) 0 %; Eosinophils # (A) 0.1 k/uL (0-0.7); Eosinophils % (A) 2 %; HCT 31.5 % (39.0-53.0); HGB 10.3 gm/dL (13.0-17.5); Lymphocytes # (A) 1.3 k/uL (1.0-4.8); Lymphocytes % (A) 30 %; MCH 30.3 pg (25.0-35.0); MCHC 32.6 g/dL (31.0-37.0); Mean Platelet Volume 6.8; Monocytes # (A) 0.3 k/uL (0-1.0); Monocytes % (A) 6 %; Neutrophils # (A) 2.4 k/uL (1.3-7.7); Neutrophils % (A) 59 %; Platelet Count 203 k/uL (150-450); RBC 3.38 m/uL (4.30-5.90); RDW 13.8 % (11.5-15.5); WBC 4.1 k/uL (3.8-10.6)
[2018-01-12 07:14] LABS: Calcium 7.5 mg/dL (8.4-10.2); Magnesium 1.6 mg/dL (1.6-2.3); Phosphorus 3.5 mg/dL (2.5-4.5); Potassium 4.4 mmol/L (3.5-5.1)
[2018-01-12] MEDS: SODIUM BICARBONATE TAB 650 MG TAB PO SCH ×2 (08:20→19:40)
[2018-01-12] MEDS: levETIRAcetam 500 MG TAB PO SCH ×2 (08:20→19:40)
[2018-01-12] MEDS: METOPROLOL TARTRATE 50 MG TAB PO SCH (08:21)
[2018-01-12] MEDS: HEPARIN SODIUM,PORCINE 5,000 UNIT/ML 1 ML VIAL SQ SCH ×3 (08:21→23:28)
[2018-01-12] MEDS: amLODIPine 5 MG TAB PO SCH ×2 (08:21→21:09)
[2018-01-12] MEDS: FERROUS SULFATE 325 MG TAB PO SCH (08:21)
[2018-01-12] MEDS: ASPIRIN 325 MG TAB PO SCH (08:21)
[2018-01-12] MEDS: CHOLECALCIFEROL 1,000 UNIT TAB PO SCH (08:21)
[2018-01-12] MEDS: MYCOPHENOLATE MOFETIL 500 MG TAB PO SCH ×2 (08:21→19:40)
[2018-01-12] MEDS: SODIUM CHLORIDE 0.9% 1,000 ML IV SCH ×2 (08:22→17:31)
[2018-01-12] MEDS: NICOTINE 21MG/24HR PATCH TRANSDERM SCH (08:22)
--- NOTE | 2018-01-12 10:23 | PN ---
PROGRESS NOTE Patient is seen for followup for acute kidney injury. He is currently maintained on gentle IV hydration. Renal function has improved slightly with creatinine down to 2.0 from 2.4 on initial admission. Previous creatinine in October was 1.8 in July was 1.7 mg/dL. PHYSICAL EXAMINATION: On examination, blood pressure is 180/79, heart rate 73 per minute. Patient is afebrile. EXAMINATION OF THE HEART: S1, S2. EXAMINATION OF THE LUNGS: Bilateral breath sounds are heard. Abdomen is soft, nontender. Examination of the lower extremities shows no significant edema. R[place]ICKER exam shows patient has left hemiparesis. LABS: Labs show sodium 138, potassium 4.4, chloride 111, BUN 24, serum creatinine 2.01. ASSESSMENT: 1. Acute kidney injury, prerenal, currently improving. Patient is maintained on IV fluids. 2. Chronic kidney disease with significant proteinuria with negative serologies except for hepatitis C antibody. The patient will likely need a kidney biopsy as outpatient. He definitely needs outpatient followup for chronic kidney disease. There is a component of nephrotoxicity from the cyclosporine as well which we need to continue at this time for the liver transplant. 3. History of cerebrovascular accident with left hemiparesis. 4. Left hip pain with previous left intertrochanteric fracture and surgery at [facility]. 5. History of seizures. 6. Metabolic acidosis, maintained on oral sodium bicarb. 7. Wound in the left hip area with wound culture growing gram-negative organism being followed by ID, maintained on cefepime. PLAN: Continue IV fluids. Repeat labs in a.m. Patient will need followup as outpatient with possible kidney biopsy as outpatient. MMODL / IJN: [id number] /
--- NOTE | 2018-01-12 11:50 | P.PN ---
Subjective Progress Note Date: 01/12/18 Principal diagnosis: Left hip pain, weakness Patient is still significantly weak, he is unable to get up from the bed. He has left sided weakness that is chronic, and he doesn't think it is worse than baseline. No chest pain or sob. Objective - Vital Signs Vital signs: Vital Signs Temp 98.1 F 01/12/18 08:00 Pulse 73 01/12/18 08:00 Resp 16 01/12/18 08:00 BP 180/79 01/12/18 08:00 Pulse Ox 96 01/12/18 08:00 Intake & Output 01/11/18 01/12/18 01/12/18 18:59 06:59 18:59 Intake Total 540 600 100 Output Total 550 550 300 Balance -10 50 -200 Weight 90.2 kg Intake: Oral 540 600 100 Output: Urine 550 550 300 Other: Voiding Method Urinal Urinal Urinal - Exam Constitutional: No acute distress, patient is reporting left hip pain, patient seems to be upset, he is using foul language and not cooperating with history taking. Eyes: Anicteric sclerae, moist conjunctiva, no lid-lag Pupils equal round reactive to light ENMT: NC/AT Oropharynx clear, no erythema, or exudates Neck: Supple, FROM, no masses, or JVD No carotid bruits No thyromegaly Lungs: Clear to auscultation Clear to percussion Normal respiratory effort, no accessory muscle use Cardiovascular: Heart regular in rate and rhythm, No murmurs, gallops, or rubs No peripheral edema Abdominal: Soft Nontender, no guarding, rebound or rigidity Abdomen moving with respiration Normoactive bowel sounds No hepatomegaly, No splenomegaly No palpable mass No abdominal wall hernia noted Skin: Patient has eschar over his left foot 2 x 2 centimeter over the lateral aspect of the dorsum of the left foot Patient also has erythema and blistering 10 x 10 cm over his left hip tender to palpation Normal temperature, tone, texture, turgor No induration No subcutaneous nodules No rash, Extremities: Abduction of the left hip, external rotation of the left leg, tenderness to palpation of the left hip No digital cyanosis No clubbing Pedal pulses intact and symmetrical Radial pulses intact and symmetrical No calf tenderness Psychiatric: Alert and oriented to person, place and time Patient is paranoid fair judgment Neuro Muscles Strength 5/5 over the right upper and lower extremity, left lower extremity could not he tested due to severe left hip pain, left upper extremity with contractures in his forearm and left hand due to prior stroke Sensation to light touch grossly present throughout Cranial nerves II-XII grossly intact No focal sensory deficits Lymphatics: no palpable cervical or supraclavicular , or inguinal lymph nodes - Labs CBC & Chem 7: 01/12/18 05:50 01/12/18 05:50 Labs: Abnormal Lab Results - Last 24 Hours (Table) 01/11/18 01/12/18 01/12/18 Range/Units 05:15 05:50 05:50 RBC 3.38 L (4.30-5.90) m/uL Hgb 10.3 L (13.0-17.5) gm/dL Hct 31.5 L (39.0-53.0) % Chloride 111 H (98-107) mmol/L Carbon Dioxide 19 L (22-30) mmol/L BUN 24 H (9-20) mg/dL Creatinine 2.01 H (0.66-1.25) mg/dL Calcium 7.5 L (8.4-10.2) mg/dL Hep B Core Total Ab Reactive H (Non-Reactive) Hep C IgG Ab Reactive H (Non-Reactive) Assessment and Plan Plan: #Accelerated hypertension, with end organ damage elevated creatinine Resolved Resume BP meds #Elevated troponins could be secondary to CKD, along with malignant hypertension Echocardiogram checked, within normal limits. Cardiology signed off #Acute kidney injury on CKD stage III This could be secondary to malignant hypertension and possibly component of dehydration Has significant proteinuria in the urine, can't rule out glomerulonephritis. Cyclosporine toxicity is also within the differential. Continue IV fluid hydration with normal saline 50 mL per hour. Follow up creatinine in a.m. Nephrology is following Avoid nephrotoxic meds Continue to monitor urine output #Left hip erythema and blistering Grew gram-negative bacilli from the wound cultures Continue cefepime #Chronic left intertrochanteric fracture Orthopedic's consult--no surgical intervention needed now, follow-up at [facility] orthopedic department Pain control #Chronic hepatitis C untreated, history of liver transplant on immunosuppressants Cyclosporine level checked--within therapeutic range Continue CellCept and cyclosporine #History of seizures, most recent breakthrough seizure was over 5 months ago Continue with Keppra Seizure precautions #Diet as tolerated #Tobacco smoking abuse Patient counseled to quit smoking Nicotine replacement therapy offered #History of CVA Continue with aspirin and statin #Gen. weakness PT Disposition: Likely needs subacute rehab
--- NOTE | 2018-01-12 15:48 | P.PN ---
Subjective Progress Note Date: 01/12/18 67-year-old male presents to Hospital status post fall. This gentleman who is a poor historian is having some difficulties with orientation. He appears to know that he is at the hospital, however during the evaluation the roommate opens up a container, the patient looks in that direction as wonders if his dog is trying to get his attention. He is undirected that he is in the hospital and seems to reoriente at that time. He certainly is vague but relates that he has had a liver transplantation and that he has had multiple falls over time. Several years ago he had a severe fall resulting in a fracture to his left hip and the resultant multiple surgeries because of the nonhealing that he suffered. He's also had a stroke and has persistent left- sided weakness. The patient relates the most recent fall resulting with him being on the floor and dragging himself resulting in the injury to the tissue to the left hip area. He is not clear if he's had fever. When he is able to fully understand that a consult as an infectious diseases evaluation, he relates that he has chronic active hepatitis C. He was offered treatment after his liver transplant apparently has not taken specific therapy. Although then he does state he was treated for his hepatitis C in the past. The patient apparently follows locally for his hepatitis C but does not keep appointments. 01/12/2018 reveals the patient be feeling somewhat better today. He is not having any difficulties with fever or chills. Is noted that his acute renal failure is improving. We are awaiting laboratories. Facility has help with any discomfort of the left hip still has great difficulties with any attempt to ambulate. Objective - Vital Signs Vital signs: Vital Signs Temp 98.1 F 01/12/18 08:00 Pulse 65 01/12/18 12:00 Resp 20 01/12/18 12:00 BP 189/93 01/12/18 12:00 Pulse Ox 96 01/12/18 12:00 Intake & Output 01/11/18 01/12/18 01/12/18 18:59 06:59 18:59 Intake Total 540 600 380 Output Total 550 550 900 Balance -10 50 -520 Weight 90.2 kg Intake: Oral 540 600 380 Output: Urine 550 550 900 Other: Voiding Method Urinal Urinal Urinal # Voids 1 - Exam Pleasant 67-year-old male who apparently is much more cooperative than he was in the recent past. While laying supine lates he is quite comfortable HEENT: Anicteric conjunctiva are pink and moist nasal mucosa grossly intact without significant lesions, there is no thrush. Neck: The neck is supple without significant lymphadenopathy or thyromegaly. Lungs: Good bilateral air entry without significant crackles or wheezing. There is no significant bronchial sounds. There is no egophony or dullness. Heart: Regular rate and rhythm with an audible S1-S2, no S3 no S4. There is no significant murmur click or rub, PMI was nondisplaced. Abdomen: Positive bowel sounds soft and nontender without palpable masses or organomegaly. There was no guarding or rebound. Extremities: The arms or other abnormality but he does have evidence of the IV site and some ecchymosis from the recent fall. No open lesions are seen in the arms. The left trochanteric area and upper thigh has evidence of the abrasion there is some scant drainage. It is serosanguineous in nature. There is surrounding erythema and it is tender to touch. Motion to the left hip does cause him discomfort Neuro: Patient is awake and alert his orientation can be directed but he does drift off. He has the left-sided weakness from his prior stroke, - Labs CBC & Chem 7: 01/12/18 05:50 01/12/18 05:50 Labs: Abnormal Lab Results - Last 24 Hours (Table) 01/12/18 01/12/18 Range/Units 05:50 05:50 RBC 3.38 L (4.30-5.90) m/uL Hgb 10.3 L (13.0-17.5) gm/dL Hct 31.5 L (39.0-53.0) % Chloride 111 H (98-107) mmol/L Carbon Dioxide 19 L (22-30) mmol/L BUN 24 H (9-20) mg/dL Creatinine 2.01 H (0.66-1.25) mg/dL Calcium 7.5 L (8.4-10.2) mg/dL Laboratory Results WBC 4.1 k/uL (3.8-10.6) 01/12/18 05:50 RBC 3.38 m/uL (4.30-5.90) L 01/12/18 05:50 Hgb 10.3 gm/dL (13.0-17.5) L 01/12/18 05:50 Hct 31.5 % (39.0-53.0) L 01/12/18 05:50 MCV 93.0 fL (80.0-100.0) 01/12/18 05:50 MCH 30.3 pg (25.0-35.0) 01/12/18 05:50 MCHC 32.6 g/dL (31.0-37.0) 01/12/18 05:50 RDW 13.8 % (11.5-15.5) 01/12/18 05:50 Plt Count 203 k/uL (150-450) 01/12/18 05:50 Neutrophils % 59 % 01/12/18 05:50 Lymphocytes % 30 % 01/12/18 05:50 Monocytes % 6 % 01/12/18 05:50 Eosinophils % 2 % 01/12/18 05:50 Basophils % 0 % 01/12/18 05:50 Neutrophils # 2.4 k/uL (1.3-7.7) 01/12/18 05:50 Lymphocytes # 1.3 k/uL (1.0-4.8) 01/12/18 05:50 Monocytes # 0.3 k/uL (0-1.0) 01/12/18 05:50 Eosinophils # 0.1 k/uL (0-0.7) 01/12/18 05:50 Basophils # 0.0 k/uL (0-0.2) 01/12/18 05:50 PT 10.0 sec (9.0-12.0) 01/09/18 16:36 INR 1.0 (<1.2) 01/09/18 16:36 APTT 23.9 sec (22.0-30.0) 01/09/18 16:36 Sodium 138 mmol/L (137-145) 01/12/18 05:50 Potassium 4.4 mmol/L (3.5-5.1) 01/12/18 05:50 Chloride 111 mmol/L (98-107) H 01/12/18 05:50 Carbon Dioxide 19 mmol/L (22-30) L 01/12/18 05:50 Anion Gap 8 mmol/L 01/12/18 05:50 BUN 24 mg/dL (9-20) H 01/12/18 05:50 Creatinine 2.01 mg/dL (0.66-1.25) H 01/12/18 05:50 Est GFR (CKD-EPI)AfAm 39 (>60 ml/min/1.73 sqM) 01/12/18 05:50 Est GFR (CKD-EPI)NonAf 34 (>60 ml/min/1.73 sqM) 01/12/18 05:50 Glucose 81 mg/dL (74-99) 01/12/18 05:50 POC Glucose (mg/dL) 87 mg/dL (75-99) 01/09/18 16:13 POC Glu Customer Support Technician ID Effie Be 01/09/18 16:13 Plasma Lactic Acid Kaz 0.7 mmol/L (0.7-2.0) 01/09/18 18:19 Calcium 7.5 mg/dL (8.4-10.2) L 01/12/18 05:50 Phosphorus 3.5 mg/dL (2.5-4.5) 01/12/18 05:50 Magnesium 1.6 mg/dL (1.6-2.3) 01/12/18 05:50 Total Bilirubin 0.6 mg/dL (0.2-1.3) 01/09/18 16:36 AST 34 U/L (17-59) 01/09/18 16:36 ALT 37 U/L (21-72) 01/09/18 16:36 Alkaline Phosphatase 84 U/L (38-126) 01/09/18 16:36 Total Creatine Kinase 50 U/L (55-170) L 01/10/18 05:21 CK-MB (CK-2) 1.9 ng/mL (0.0-2.4) 01/10/18 05:21 CK-MB (CK-2) Rel Index 3.8 01/10/18 05:21 Troponin I 0.049 ng/mL (0.000-0.034) H* 01/10/18 05:21 Total Protein 5.5 g/dL (6.3-8.2) L 01/09/18 16:36 Albumin 2.7 g/dL (3.5-5.0) L 01/09/18 16:36 Triglycerides 112 mg/dL (<150) 01/10/18 05:21 Cholesterol 186 mg/dL (<200) 01/10/18 05:21 LDL Cholesterol, Calc 132 mg/dL (0-99) H 01/10/18 05:21 HDL Cholesterol 32 mg/dL (40-60) L 01/10/18 05:21 Urine Color Yellow 01/09/18 18:17 Urine Appearance Clear (Clear) 01/09/18 18:17 Urine pH 6.0 (5.0-8.0) 01/09/18 18:17 Ur Specific [place] 1.016 (1.001-1.035) 01/09/18 18:17 Urine Protein 4+ (Negative) H 01/09/18 18:17 Urine Glucose (UA) Trace (Negative) H 01/09/18 18:17 Urine Ketones Negative (Negative) 01/09/18 18:17 Urine Blood Small (Negative) H 01/09/18 18:17 Urine Nitrite Negative (Negative) 01/09/18 18:17 Urine Bilirubin Negative (Negative) 01/09/18 18:17 Urine Urobilinogen <2.0 mg/dL (<2.0) 01/09/18 18:17 Ur Leukocyte Esterase Negative (Negative) 01/09/18 18:17 Urine RBC <1 /hpf (0-5) 01/09/18 18:17 Urine WBC 2 /hpf (0-5) 01/09/18 18:17 Ur Squamous Epith Cells <1 /hpf (0-4) 01/09/18 18:17 Urine Bacteria Rare /hpf (None) H 01/09/18 18:17 Hyaline Casts 7 /lpf (0-2) H 01/09/18 18:17 Urine Mucus Rare /hpf (None) H 01/09/18 18:17 Urine Sperm Rare /hpf (None) 01/09/18 18:17 Ur Random Creatinine 101.3 mg/dL 01/10/18 12:12 U Random Total Protein >600 mg/dL (<12) H 01/10/18 12:12 Cyclosporine 129 ng/mL (100-400) 01/10/18 05:21 JOCELYNE Screen NEGATIVE (NEGATIVE) 01/10/18 05:21 Double Strand DNA Ab NEGATIVE (NEGATIVE) 01/11/18 05:15 Anti-DNA Ab Interp 1.0 IU/mL 01/11/18 05:15 Complement C3 109.0 mg/dL (80.0-207.0) 01/10/18 05:21 Complement C4 24.8 mg/dL (10.0-53.0) 01/10/18 05:21 Hep Bs Antigen Non-Reactive (Non-Reactive) 01/11/18 05:15 Hep B Core Total Ab Reactive (Non-Reactive) H 01/11/18 05:15 Hep C IgG Ab Reactive (Non-Reactive) H 01/11/18 05:15 Microbiology 01/09/18 16:36 Hip - Left Gram Stain - Preliminary 01/09/18 16:36 Hip - Left Wound Culture - Preliminary Gram Neg Bacilli Assessment and Plan (1) Fall Current Visit: No Status: Acute Code(s): W19.XXXA - UNSPECIFIED FALL, INITIAL ENCOUNTER SNOMED Code(s): 2059438 (2) Gram-negative infection Narrative/Plan: 67-year-old male with a complex past medical history including liver transplant, stroke with left-sided weakness, multiple falls, history of left intertrochanteric fracture with poor healing presents to Hospital after another fall feeling very poorly. There is evidence of the distinct abrasion to the left hip area and culture at this point in time showing evidence of gram- negative bacilli. Given his history there would be concerns to pseudomonas as well as other gram-negative organisms and consequently Rocephin as transitioned to Maxipime to ensure coverage for Pseudomonas. Local wound care with Silvadene was requested Culture is in process and will further help direct his antibiotic therapy For smoking cessation the nicotine replacement patches applied today. Pain control rest is adequate. The patient's hepatitis C viral load will be obtained and the genotype to see if further treatment is necessary 01/12/2018 patient is stable with some improvements. Creatinine is improved from 2.4-2.01. We'll culture shows evidence of a gram-negative bacilli and we await the final culture to further direct antimicrobial therapy, with his recent multiple problems is concerned with pseudomonal infection. Doing well with Silvadene that we'll continue, await the hepatitis testing He is appreciative of the nicotine patch it has helped his urge a bit. The patient relates that his pain is improved. Will likely go to rehab at his discharge. Current Visit: Yes Status: Acute Code(s): A49.9 - BACTERIAL INFECTION, UNSPECIFIED SNOMED Code(s): 873517205 (3) Open wound of left hip Current Visit: Yes Status: Acute Code(s): S71.002A - UNSPECIFIED OPEN WOUND , LEFT HIP, INITIAL ENCOUNTER SNOMED Code(s): 551374584
[2018-01-12] MEDS ORDERED: cloNIDine HCL 0.2 MG TAB PO STA (19:10)
[2018-01-13] MEDS ORDERED: cloNIDine HCL 0.2 MG TAB PO STA (03:47)
[2018-01-13] MEDS: CEFEPIME 2 GM in SODIUM CHLORIDE 0.9% 50 ML IVPB SCH ×3 (03:49→18:54)
[2018-01-13] MEDS: SODIUM CHLORIDE 0.9% 1,000 ML IV SCH ×2 (04:13→16:28)
[2018-01-13] MEDS: HEPARIN SODIUM,PORCINE 5,000 UNIT/ML 1 ML VIAL SQ SCH ×3 (08:57→23:42)
--- NOTE | 2018-01-13 08:58 | PN ---
PROGRESS NOTE Patient is seen for followup for acute kidney injury. We do not have labs back yet from today. However, patient's renal function was slightly improved yesterday. He is maintained on IV fluids. Blood pressure has been running high. Therefore, the fluids were decreased to about 50 mL an hour yesterday. The patient has had good urine output. He has not had any urine retention. PHYSICAL EXAMINATION: This morning, blood pressure 188/90, heart rate 75 per minute. Patient is afebrile. Examination of the heart S1, S2. Examination lungs decreased breath sounds bases. Abdomen is soft, nontender. Examination lower extremities shows no significant edema. SHIPPING LEAD exam shows left-sided weakness/hemiparesis. LABS: Revealed labs are pending from today. ASSESSMENT: 1. Acute kidney injury with this degree of intravascular volume depletion, currently maintained on IV fluids with improvement in renal function as of yesterday. Labs are pending from today. 2. 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 There is likely an element of chronic kidney disease associated with chronic cyclosporine use, however, that is not associated with proteinuria. 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 The diagnosis of which will be made through a kidney biopsy. Serologies are negative at this time. 3. History of cerebrovascular accident with left hemiparesis. 4. Left hip pain with previous intertrochanteric fracture and surgery at [facility]. 5. Wound in the left hip area with wound culture growing gram-negative organisms being followed by ID, maintained on cefepime. 6. Metabolic acidosis. Maintained on sodium bicarb, currently improving. 7. Hypertension, uncontrolled. I will increase the Lopressor. Patient is encouraged to increase oral intake. PLAN: Continue current dose of amlodipine. Increase Lopressor to 50 mg b.i.d. We can add hydralazine if blood pressure remains elevated. Maintain IV fluids at 50 mL an hour. MMODL / IJN: [id number] /
[2018-01-13] MEDS: MYCOPHENOLATE MOFETIL 500 MG TAB PO SCH ×2 (09:00→21:30)
[2018-01-13] MEDS: SODIUM BICARBONATE TAB 650 MG TAB PO SCH ×2 (09:00→21:29)
[2018-01-13] MEDS: FERROUS SULFATE 325 MG TAB PO SCH (09:00)
[2018-01-13] MEDS: ASPIRIN 325 MG TAB PO SCH (09:00)
[2018-01-13] MEDS: levETIRAcetam 500 MG TAB PO SCH ×2 (09:00→21:30)
[2018-01-13] MEDS: NICOTINE 21MG/24HR PATCH TRANSDERM SCH (09:00)
[2018-01-13] MEDS: CHOLECALCIFEROL 1,000 UNIT TAB PO SCH (09:01)
[2018-01-13] MEDS: amLODIPine 5 MG TAB PO SCH ×2 (09:01→21:30)
[2018-01-13] MEDS: METOPROLOL TARTRATE 50 MG TAB PO SCH ×2 (09:02→21:29)
[2018-01-13 11:47] LABS: Basophils % (A) 0 %; Eosinophils # (A) 0.1 k/uL (0-0.7); Eosinophils % (A) 4 %; HCT 34.4 % (39.0-53.0); HGB 11.2 gm/dL (13.0-17.5); Lymphocytes # (A) 1.3 k/uL (1.0-4.8); Lymphocytes % (A) 36 %; MCH 30.7 pg (25.0-35.0); MCHC 32.5 g/dL (31.0-37.0); MCV 94.4 fL (80.0-100.0); Mean Platelet Volume 6.6; Monocytes # (A) 0.3 k/uL (0-1.0); Monocytes % (A) 8 %; Neutrophils # (A) 1.8 k/uL (1.3-7.7); Neutrophils % (A) 50 %; Platelet Count 201 k/uL (150-450); RBC 3.64 m/uL (4.30-5.90); WBC 3.5 k/uL (3.8-10.6)
[2018-01-13 12:05] LABS: Calcium 8.1 mg/dL (8.4-10.2); Magnesium 1.6 mg/dL (1.6-2.3); Phosphorus 3.5 mg/dL (2.5-4.5); Potassium 4.5 mmol/L (3.5-5.1)
[2018-01-13] MEDS: hydrALAZINE HCL 10 MG TAB PO SCH ×3 (12:30→21:29)
--- NOTE | 2018-01-13 12:58 | P.PN ---
Subjective Progress Note Date: 01/13/18 Principal diagnosis: Left hip pain, weakness Patient was sleeping when I came in, still in bed, weak, very hesitant to move out of bed because of weakness. doing well otherwise. Objective - Vital Signs Vital signs: Vital Signs Temp 97.1 F L 01/13/18 08:00 Pulse 53 L 01/13/18 08:00 Resp 18 01/13/18 08:00 BP 184/86 01/13/18 08:00 Pulse Ox 98 01/13/18 08:00 Intake & Output 01/12/18 01/13/18 01/13/18 18:59 06:59 18:59 Intake Total 380 200 180 Output Total 1999 957 Balance -6521 -199 180 Weight 88.6 kg Intake: Oral 380 200 180 Output: Urine 1999 650 Post Void Residual 267 Other: Voiding Method Urinal Urinal Urinal # Voids 2 # Bowel Movements 1 - Exam Constitutional: No acute distress, patient is reporting left hip pain, patient seems to be upset, he is using foul language and not cooperating with history taking. Eyes: Anicteric sclerae, moist conjunctiva, no lid-lag Pupils equal round reactive to light ENMT: NC/AT Oropharynx clear, no erythema, or exudates Neck: Supple, FROM, no masses, or JVD No carotid bruits No thyromegaly Lungs: Clear to auscultation Clear to percussion Normal respiratory effort, no accessory muscle use Cardiovascular: Heart regular in rate and rhythm, No murmurs, gallops, or rubs No peripheral edema Abdominal: Soft Nontender, no guarding, rebound or rigidity Abdomen moving with respiration Normoactive bowel sounds No hepatomegaly, No splenomegaly No palpable mass No abdominal wall hernia noted Skin: Patient has eschar over his left foot 2 x 2 centimeter over the lateral aspect of the dorsum of the left foot Patient also has erythema and blistering 10 x 10 cm over his left hip tender to palpation Normal temperature, tone, texture, turgor No induration No subcutaneous nodules No rash, Extremities: Abduction of the left hip, external rotation of the left leg, tenderness to palpation of the left hip No digital cyanosis No clubbing Pedal pulses intact and symmetrical Radial pulses intact and symmetrical No calf tenderness Psychiatric: Alert and oriented to person, place and time Patient is paranoid fair judgment Neuro Muscles Strength 5/5 over the right upper and lower extremity, left lower extremity could not he tested due to severe left hip pain, left upper extremity with contractures in his forearm and left hand due to prior stroke Sensation to light touch grossly present throughout Cranial nerves II-XII grossly intact No focal sensory deficits Lymphatics: no palpable cervical or supraclavicular , or inguinal lymph nodes - Labs CBC & Chem 7: 01/13/18 11:18 01/13/18 11:18 Labs: Abnormal Lab Results - Last 24 Hours (Table) 01/13/18 01/13/18 Range/Units 11:18 11:18 WBC 3.5 L (3.8-10.6) k/uL RBC 3.64 L (4.30-5.90) m/uL Hgb 11.2 L (13.0-17.5) gm/dL Hct 34.4 L (39.0-53.0) % Chloride 112 H (98-107) mmol/L Carbon Dioxide 18 L (22-30) mmol/L BUN 23 H (9-20) mg/dL Creatinine 1.85 H (0.66-1.25) mg/dL Calcium 8.1 L (8.4-10.2) mg/dL Microbiology - Last 24 Hours (Table) 01/09/18 16:36 Gram Stain - Final Hip - Left Wound Culture - Final Enterobacter cloacae Assessment and Plan Plan: #Accelerated hypertension, with end organ damage elevated creatinine Resolved Resume BP meds #Elevated troponins could be secondary to CKD, along with malignant hypertension Echocardiogram checked, within normal limits. Cardiology signed off #Renal failure likely secondary to glomerulonephritis Patient will need kidney biopsy as an outpatient. Has significant proteinuria in the urine. Continue IV fluid hydration with normal saline 50 mL per hour. Follow up creatinine in a.m. Nephrology is following Avoid nephrotoxic meds Continue to monitor urine output #Left hip erythema and blistering Grew enterobacter cloace from the wound cultures Antibiotics according to ID #Chronic left intertrochanteric fracture Orthopedic's consult--no surgical intervention needed now, follow-up at [facility] orthopedic department Pain control #Chronic hepatitis C untreated, history of liver transplant on immunosuppressants Cyclosporine level checked--within therapeutic range Continue CellCept and cyclosporine #History of seizures, most recent breakthrough seizure was over 5 months ago Continue with Keppra Seizure precautions #Diet as tolerated #Tobacco smoking abuse Patient counseled to quit smoking Nicotine replacement therapy offered #History of CVA Continue with aspirin and statin #Gen. weakness PT Disposition: Likely needs subacute rehab
--- NOTE | 2018-01-13 14:47 | P.PN ---
Subjective Progress Note Date: 01/13/18 67-year-old male presents to Hospital status post fall. This gentleman who is a poor historian is having some difficulties with orientation. He appears to know that he is at the hospital, however during the evaluation the roommate opens up a container, the patient looks in that direction as wonders if his dog is trying to get his attention. He is undirected that he is in the hospital and seems to reoriente at that time. He certainly is vague but relates that he has had a liver transplantation and that he has had multiple falls over time. Several years ago he had a severe fall resulting in a fracture to his left hip and the resultant multiple surgeries because of the nonhealing that he suffered. He's also had a stroke and has persistent left- sided weakness. The patient relates the most recent fall resulting with him being on the floor and dragging himself resulting in the injury to the tissue to the left hip area. He is not clear if he's had fever. When he is able to fully understand that a consult as an infectious diseases evaluation, he relates that he has chronic active hepatitis C. He was offered treatment after his liver transplant apparently has not taken specific therapy. Although then he does state he was treated for his hepatitis C in the past. The patient apparently follows locally for his hepatitis C but does not keep appointments. 01/12/2018 reveals the patient be feeling somewhat better today. He is not having any difficulties with fever or chills. Is noted that his acute renal failure is improving. We are awaiting laboratories. Facility has help with any discomfort of the left hip still has great difficulties with any attempt to ambulate. 01/13/2018 patient continues to feel poorly. Does not seem to be confused. Has generalized malaise and fatigue. Pain to the left hip is improved. Objective - Vital Signs Vital signs: Vital Signs Temp 98.2 F 01/13/18 12:00 Pulse 62 01/13/18 12:00 Resp 18 01/13/18 12:00 BP 152/81 01/13/18 12:00 Pulse Ox 99 01/13/18 12:00 Intake & Output 01/12/18 01/13/18 01/13/18 18:59 06:59 18:59 Intake Total 380 200 530 Output Total 1999 917 Balance -5820 -632 530 Weight 88.6 kg Intake: Intake, IV Titration 350 Amount Cefepime 2 gm In Sodium 50 Chloride 0.9% 50 ml @ 100 mls/hr IVPB Q8H [facility] Rx#: [id number] Sodium Chloride 0.9% 1, 300 000 ml @ 50 mls/hr IV . Q20H [facility] Rx#:[id number] Oral 380 200 180 Output: Urine 2000 650 Post Void Residual 267 Other: Voiding Method Urinal Urinal Urinal # Voids 2 4 # Bowel Movements 1 - Exam Pleasant 67-year-old male who apparently is much more cooperative than he was in the recent past. While laying supine lates he is quite comfortable HEENT: Anicteric conjunctiva are pink and moist nasal mucosa grossly intact without significant lesions, there is no thrush. Neck: The neck is supple without significant lymphadenopathy or thyromegaly. Lungs: Good bilateral air entry without significant crackles or wheezing. There is no significant bronchial sounds. There is no egophony or dullness. Heart: Regular rate and rhythm with an audible S1-S2, no S3 no S4. There is no significant murmur click or rub, PMI was nondisplaced. Abdomen: Positive bowel sounds soft and nontender without palpable masses or organomegaly. There was no guarding or rebound. Extremities: The arms or other abnormality but he does have evidence of the IV site and some ecchymosis from the recent fall. No open lesions are seen in the arms. The left trochanteric area and upper thigh has evidence of the abrasion there is some scant drainage. It is serosanguineous in nature. There is surrounding erythema and it is tender to touch. Motion to the left hip does cause him discomfort Neuro: Patient is awake and alert his orientation can be directed but he does drift off. He has the left-sided weakness from his prior stroke, - Labs CBC & Chem 7: 01/13/18 11:18 01/13/18 11:18 Labs: Abnormal Lab Results - Last 24 Hours (Table) 01/13/18 01/13/18 Range/Units 11:18 11:18 WBC 3.5 L (3.8-10.6) k/uL RBC 3.64 L (4.30-5.90) m/uL Hgb 11.2 L (13.0-17.5) gm/dL Hct 34.4 L (39.0-53.0) % Chloride 112 H (98-107) mmol/L Carbon Dioxide 18 L (22-30) mmol/L BUN 23 H (9-20) mg/dL Creatinine 1.85 H (0.66-1.25) mg/dL Calcium 8.1 L (8.4-10.2) mg/dL Microbiology - Last 24 Hours (Table) 01/09/18 16:36 Gram Stain - Final Hip - Left Wound Culture - Final Enterobacter cloacae Laboratory Results WBC 3.5 k/uL (3.8-10.6) L 01/13/18 11:18 RBC 3.64 m/uL (4.30-5.90) L 01/13/18 11:18 Hgb 11.2 gm/dL (13.0-17.5) L 01/13/18 11:18 Hct 34.4 % (39.0-53.0) L 01/13/18 11:18 MCV 94.4 fL (80.0-100.0) 01/13/18 11:18 MCH 30.7 pg (25.0-35.0) 01/13/18 11:18 MCHC 32.5 g/dL (31.0-37.0) 01/13/18 11:18 RDW 14.0 % (11.5-15.5) 01/13/18 11:18 Plt Count 201 k/uL (150-450) 01/13/18 11:18 Neutrophils % 50 % 01/13/18 11:18 Lymphocytes % 36 % 01/13/18 11:18 Monocytes % 8 % 01/13/18 11:18 Eosinophils % 4 % 01/13/18 11:18 Basophils % 0 % 01/13/18 11:18 Neutrophils # 1.8 k/uL (1.3-7.7) 01/13/18 11:18 Lymphocytes # 1.3 k/uL (1.0-4.8) 01/13/18 11:18 Monocytes # 0.3 k/uL (0-1.0) 01/13/18 11:18 Eosinophils # 0.1 k/uL (0-0.7) 01/13/18 11:18 Basophils # 0.0 k/uL (0-0.2) 01/13/18 11:18 PT 10.0 sec (9.0-12.0) 01/09/18 16:36 INR 1.0 (<1.2) 01/09/18 16:36 APTT 23.9 sec (22.0-30.0) 01/09/18 16:36 Sodium 139 mmol/L (137-145) 01/13/18 11:18 Potassium 4.5 mmol/L (3.5-5.1) 01/13/18 11:18 Chloride 112 mmol/L (98-107) H 01/13/18 11:18 Carbon Dioxide 18 mmol/L (22-30) L 01/13/18 11:18 Anion Gap 9 mmol/L 01/13/18 11:18 BUN 23 mg/dL (9-20) H 01/13/18 11:18 Creatinine 1.85 mg/dL (0.66-1.25) H 01/13/18 11:18 Est GFR (CKD-EPI)AfAm 43 (>60 ml/min/1.73 sqM) 01/13/18 11:18 Est GFR (CKD-EPI)NonAf 37 (>60 ml/min/1.73 sqM) 01/13/18 11:18 Glucose 90 mg/dL (74-99) 01/13/18 11:18 POC Glucose (mg/dL) 87 mg/dL (75-99) 01/09/18 16:13 POC Glu [employer] Effie Tobias 01/09/18 16:13 Plasma Lactic Acid Kaz 0.7 mmol/L (0.7-2.0) 01/09/18 18:19 Calcium 8.1 mg/dL (8.4-10.2) L 01/13/18 11:18 Phosphorus 3.5 mg/dL (2.5-4.5) 01/13/18 11:18 Magnesium 1.6 mg/dL (1.6-2.3) 01/13/18 11:18 Total Bilirubin 0.6 mg/dL (0.2-1.3) 01/09/18 16:36 AST 34 U/L (17-59) 01/09/18 16:36 ALT 37 U/L (21-72) 01/09/18 16:36 Alkaline Phosphatase 84 U/L (38-126) 01/09/18 16:36 Total Creatine Kinase 50 U/L (55-170) L 01/10/18 05:21 CK-MB (CK-2) 1.9 ng/mL (0.0-2.4) 01/10/18 05:21 CK-MB (CK-2) Rel Index 3.8 01/10/18 05:21 Troponin I 0.049 ng/mL (0.000-0.034) H* 01/10/18 05:21 Total Protein 5.5 g/dL (6.3-8.2) L 01/09/18 16:36 Albumin 2.7 g/dL (3.5-5.0) L 01/09/18 16:36 Triglycerides 112 mg/dL (<150) 01/10/18 05:21 Cholesterol 186 mg/dL (<200) 01/10/18 05:21 LDL Cholesterol, Calc 132 mg/dL (0-99) H 01/10/18 05:21 HDL Cholesterol 32 mg/dL (40-60) L 01/10/18 05:21 Urine Color Yellow 01/09/18 18:17 Urine Appearance Clear (Clear) 01/09/18 18:17 Urine pH 6.0 (5.0-8.0) 01/09/18 18:17 Ur Specific Procious 1.016 (1.001-1.035) 01/09/18 18:17 Urine Protein 4+ (Negative) H 01/09/18 18:17 Urine Glucose (UA) Trace (Negative) H 01/09/18 18:17 Urine Ketones Negative (Negative) 01/09/18 18:17 Urine Blood Small (Negative) H 01/09/18 18:17 Urine Nitrite Negative (Negative) 01/09/18 18:17 Urine Bilirubin Negative (Negative) 01/09/18 18:17 Urine Urobilinogen <2.0 mg/dL (<2.0) 01/09/18 18:17 Ur Leukocyte Esterase Negative (Negative) 01/09/18 18:17 Urine RBC <1 /hpf (0-5) 01/09/18 18:17 Urine WBC 2 /hpf (0-5) 01/09/18 18:17 Ur Squamous Epith Cells <1 /hpf (0-4) 01/09/18 18:17 Urine Bacteria Rare /hpf (None) H 01/09/18 18:17 Hyaline Casts 7 /lpf (0-2) H 01/09/18 18:17 Urine Mucus Rare /hpf (None) H 01/09/18 18:17 Urine Sperm Rare /hpf (None) 01/09/18 18:17 Ur Random Creatinine 101.3 mg/dL 01/10/18 12:12 U Random Total Protein >600 mg/dL (<12) H 01/10/18 12:12 Cyclosporine 129 ng/mL (100-400) 01/10/18 05:21 JOCELYNE Screen NEGATIVE (NEGATIVE) 01/10/18 05:21 Double Strand DNA Ab NEGATIVE (NEGATIVE) 01/11/18 05:15 Anti-DNA Ab Interp 1.0 IU/mL 01/11/18 05:15 Complement C3 109.0 mg/dL (80.0-207.0) 01/10/18 05:21 Complement C4 24.8 mg/dL (10.0-53.0) 01/10/18 05:21 Hep Bs Antigen Non-Reactive (Non-Reactive) 01/11/18 05:15 Hep B Core Total Ab Reactive (Non-Reactive) H 01/11/18 05:15 Hep C IgG Ab Reactive (Non-Reactive) H 01/11/18 05:15 Microbiology 01/09/18 16:36 Hip - Left Gram Stain - Final 01/09/18 16:36 Hip - Left Wound Culture - Final Enterobacter cloacae Assessment and Plan (1) Fall Current Visit: No Status: Acute Code(s): W19.XXXA - UNSPECIFIED FALL, INITIAL ENCOUNTER SNOMED Code(s): 6303168 (2) Gram-negative infection Narrative/Plan: 67-year-old male with a complex past medical history including liver transplant, stroke with left-sided weakness, multiple falls, history of left intertrochanteric fracture with poor healing presents to Hospital after another fall feeling very poorly. There is evidence of the distinct abrasion to the left hip area and culture at this point in time showing evidence of gram- negative bacilli. Given his history there would be concerns to pseudomonas as well as other gram-negative organisms and consequently Rocephin as transitioned to Maxipime to ensure coverage for Pseudomonas. Local wound care with Silvadene was requested Culture is in process and will further help direct his antibiotic therapy For smoking cessation the nicotine replacement patches applied today. Pain control rest is adequate. The patient's hepatitis C viral load will be obtained and the genotype to see if further treatment is necessary 01/12/2018 patient is stable with some improvements. Creatinine is improved from 2.4-2.01. We'll culture shows evidence of a gram-negative bacilli and we await the final culture to further direct antimicrobial therapy, with his recent multiple problems is concerned with pseudomonal infection. Doing well with Silvadene that we'll continue, await the hepatitis testing He is appreciative of the nicotine patch it has helped his urge a bit. The patient relates that his pain is improved. Will likely go to rehab at his discharge. 01/13/2018 patient has had some improvement, the creatinine is improved to 1.85. Hemoglobin is also somewhat improved to 11.2. Wound culture is evidence of Enterobacter that is resistant to the oral cephalosporins, but is doing well on the Maxipime. If he gets ready for discharge likely to extended care he may transition to oral ciprofloxacin 500 mg twice per day for 7 days with ongoing local wound care with the Silvadene. Current Visit: Yes Status: Acute Code(s): A49.9 - BACTERIAL INFECTION, UNSPECIFIED SNOMED Code(s): 565746192 (3) Open wound of left hip Current Visit: Yes Status: Acute Code(s): S71.002A - UNSPECIFIED OPEN WOUND , LEFT HIP, INITIAL ENCOUNTER SNOMED Code(s): 140283200
[2018-01-14] MEDS: CEFEPIME 2 GM in SODIUM CHLORIDE 0.9% 50 ML IVPB SCH ×3 (04:51→18:03)
[2018-01-14 06:19] LABS: Basophils % (A) 1 %; Eosinophils # (A) 0.1 k/uL (0-0.7); Eosinophils % (A) 2 %; HCT 38.9 % (39.0-53.0); Lymphocytes % (A) 33 %; MCH 31.3 pg (25.0-35.0); MCHC 33.3 g/dL (31.0-37.0); MCV 93.8 fL (80.0-100.0); Mean Platelet Volume 6.8; Monocytes # (A) 0.4 k/uL (0-1.0); Monocytes % (A) 6 %; Neutrophils # (A) 3.6 k/uL (1.3-7.7); Neutrophils % (A) 57 %; Platelet Count 275 k/uL (150-450); RBC 4.15 m/uL (4.30-5.90); RDW 14.4 % (11.5-15.5); WBC 6.2 k/uL (3.8-10.6)
[2018-01-14 06:44] LABS: Calcium 8.6 mg/dL (8.4-10.2); Magnesium 1.6 mg/dL (1.6-2.3); Phosphorus 3.5 mg/dL (2.5-4.5); Potassium 4.4 mmol/L (3.5-5.1)
[2018-01-14 09:37] LABS: Hepatits C Virus RNA DETECTED (Not detected); LOG HCV IU/mL 5.66 (<1.08)
--- NOTE | 2018-01-14 10:26 | PN ---
PROGRESS NOTE The patient is seen for followup of acute kidney injury. His renal function has been fairly stable with creatinine staying at about 1.8 mg/dL. The patient is sitting in bed. He is sleepy but arousable. He denies any significant complaints. Patient is being followed by GI regarding the hepatitis. He is maintained on small amount of IV fluids. Blood pressure had been running on the high side. Hydralazine was added. PHYSICAL EXAMINATION: On examination today, blood pressure was 154/83, heart rate 78 per minute. He is afebrile. EXAMINATION OF THE HEART: S1, S2. EXAMINATION OF THE LUNGS: Bilateral breath sounds are heard. Decreased breath sounds at bases. Abdomen is soft, nontender. Examination of the lower extremity shows no significant edema. Patient has left hemiparesis. LABS: Labs show sodium 140, potassium 4.4, chloride 112, CO2 of 16, BUN 23, serum creatinine 1.8, hemoglobin 13.0 g/dL. ASSESSMENT: 1. Acute kidney injury, prerenal, currently slightly improved. The patient is maintained on IV fluids at 50 mL an hour. I will change it to Ringer lactate given the metabolic acidosis. 2. Metabolic acidosis secondary to renal failure, maintained on oral sodium bicarb. I will continue at the current dose. 3. Hepatitis C with interrupted followup as outpatient, being followed by ID. 4. Status post liver transplant, maintained on CellCept and cyclosporine. 5. Chronic kidney disease, rule out underlying GN. Patient will need a kidney biopsy which can be done down the road as outpatient. PLAN: Change IV fluids to Ringer lactate. Continue current antihypertensive regimen. Patient will need followup as outpatient. He does need a kidney biopsy and this can be done down the road as well. MMODL / IJN: [id number] /
--- NOTE | 2018-01-14 11:16 | P.PN ---
Subjective Progress Note Date: 01/14/18 Principal diagnosis: Left hip pain, weakness Patient has been more lethargic since yesterday. He hasn't slept well last. When asking questions he wakes up and mumble few meaningless words. Objective - Vital Signs Vital signs: Vital Signs Temp 98.2 F 01/14/18 04:10 Pulse 78 01/14/18 08:00 Resp 18 01/14/18 08:00 BP 154/83 01/14/18 08:00 Pulse Ox 94 L 01/14/18 09:02 Intake & Output 01/13/18 01/14/18 01/14/18 18:59 06:59 18:59 Intake Total 770 1030 Output Total 600 201 Balance 170 829 Weight 89 kg Intake: Intake, IV Titration 350 550 Amount Cefepime 2 gm In Sodium 50 Chloride 0.9% 50 ml @ 100 mls/hr IVPB Q8H [facility] Rx#: [id number] Sodium Chloride 0.9% 1, 300 550 000 ml @ 50 mls/hr IV . Q20H [facility] Rx#:[id number] Oral 420 480 Output: Urine 600 200 Urine/Stool Mix 1 Other: Voiding Method Urinal Diaper Diaper Incontinent Incontinent # Voids 1 2 1 # Bowel Movements 1 2 - Exam Constitutional: No acute distress, Lethargic Eyes: Anicteric sclerae, moist conjunctiva, no lid-lag Pupils equal round reactive to light ENMT: NC/AT Oropharynx clear, no erythema, or exudates Neck: Supple, FROM, no masses, or JVD No carotid bruits No thyromegaly Lungs: Clear to auscultation Clear to percussion Normal respiratory effort, no accessory muscle use Cardiovascular: Heart regular in rate and rhythm, No murmurs, gallops, or rubs No peripheral edema Abdominal: Soft Nontender, no guarding, rebound or rigidity Abdomen moving with respiration Normoactive bowel sounds No hepatomegaly, No splenomegaly No palpable mass No abdominal wall hernia noted Skin: Patient has eschar over his left foot 2 x 2 centimeter over the lateral aspect of the dorsum of the left foot Patient also has erythema and blistering 10 x 10 cm over his left hip tender to palpation Normal temperature, tone, texture, turgor No induration No subcutaneous nodules No rash, Extremities: Abduction of the left hip, external rotation of the left leg, tenderness to palpation of the left hip No digital cyanosis No clubbing Pedal pulses intact and symmetrical Radial pulses intact and symmetrical No calf tenderness Psychiatric: Alert and oriented to person, place and time Patient is paranoid fair judgment Neuro Lethargic, wakes up to loud voices, not following commands. Lymphatics: no palpable cervical or supraclavicular , or inguinal lymph nodes - Labs CBC & Chem 7: 01/14/18 05:30 01/14/18 05:30 Labs: Abnormal Lab Results - Last 24 Hours (Table) 01/11/18 01/13/18 01/13/18 Range/Units 05:15 11:18 11:18 WBC 3.5 L (3.8-10.6) k/uL RBC 3.64 L (4.30-5.90) m/uL Hgb 11.2 L (13.0-17.5) gm/dL Hct 34.4 L (39.0-53.0) % Chloride 112 H (98-107) mmol/L Carbon Dioxide 18 L (22-30) mmol/L BUN 23 H (9-20) mg/dL Creatinine 1.85 H (0.66-1.25) mg/dL Calcium 8.1 L (8.4-10.2) mg/dL Hepatitis C Viral RNA DETECTED H (Not detected) IU/mL Hepatitis C RNA Quant 458,629 H (<12) IU/mL HCV RNA PCR log IUs/ml 5.66 H (<1.08) 01/14/18 01/14/18 Range/Units 05:30 05:30 WBC (3.8-10.6) k/uL RBC 4.15 L (4.30-5.90) m/uL Hgb (13.0-17.5) gm/dL Hct 38.9 L (39.0-53.0) % Chloride 112 H (98-107) mmol/L Carbon Dioxide 16 L (22-30) mmol/L BUN 23 H (9-20) mg/dL Creatinine 1.81 H (0.66-1.25) mg/dL Calcium (8.4-10.2) mg/dL Hepatitis C Viral RNA (Not detected) IU/mL Hepatitis C RNA Quant (<12) IU/mL HCV RNA PCR log IUs/ml (<1.08) Assessment and Plan Plan: #Acute encephalopathy: Likely hypoactive delirium, subtle seizures in the differential. R/O stroke. Stat head CT Neurology consult. #Elevated troponins could be secondary to CKD, along with malignant hypertension Echocardiogram checked, within normal limits. 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 Has significant proteinuria in the urine. Continue IV fluid hydration with normal saline 50 mL per hour. Follow up creatinine in a.m. Nephrology is following Avoid nephrotoxic meds Continue to monitor urine output #Left hip erythema and blistering Grew enterobacter cloace from the wound cultures Antibiotics according to ID, currently on cefepime #Chronic left intertrochanteric fracture Orthopedic's consult--no surgical intervention needed now, follow-up at [facility] orthopedic department Pain control #Chronic hepatitis C untreated, history of liver transplant on immunosuppressants Cyclosporine level checked--within therapeutic range Continue CellCept and cyclosporine #History of seizures, most recent breakthrough seizure was over 5 months ago Continue with Keppra Seizure precautions #Diet as tolerated #Tobacco smoking abuse Patient counseled to quit smoking Nicotine replacement therapy offered #History of CVA Continue with aspirin and statin #Gen. weakness PT Disposition: Likely needs subacute rehab
--- NOTE | 2018-01-14 11:47 | CT ---
EXAMINATION TYPE: CT brain wo con DATE OF EXAM: 01/14/2018 COMPARISON: CT brain 01/09/2018 HISTORY: Mental status changes CT DLP: 1204 mGycm Automated exposure control for dose reduction was used. Helical acquisition through the brain. FINDINGS: There is no significant interval change. Previous infarct right posterior cerebral artery, chronic sm all vessel ischemic changes are again noted. There is inflammatory change in the left maxillary sinus as seen on prior, calvarium is intact. No hemorrhage or hydrocephalus. IMPRESSION: STABLE CHRONIC CHANGES. LEFT MAXILLARY SINUSITIS.
[2018-01-14 14:20] LABS: C-ANCA <1:20 Titer (<1:20); P-ANCA <1:20 Titer (<1:20)
[2018-01-14] MEDS: hydrALAZINE HCL 20 MG/ML 1 ML VIAL IVP PRN ×2 (15:23→23:22)
[2018-01-14] MEDS: amLODIPine 5 MG TAB PO SCH ×2 (15:58→22:11)
[2018-01-14] MEDS: ASPIRIN 325 MG TAB PO SCH (15:59)
[2018-01-14] MEDS: FERROUS SULFATE 325 MG TAB PO SCH (15:59)
[2018-01-14] MEDS: HEPARIN SODIUM,PORCINE 5,000 UNIT/ML 1 ML VIAL SQ SCH ×3 (15:59→23:23)
[2018-01-14] MEDS: CHOLECALCIFEROL 1,000 UNIT TAB PO SCH (15:59)
[2018-01-14] MEDS: hydrALAZINE HCL 10 MG TAB PO SCH ×3 (16:00→22:12)
[2018-01-14] MEDS: METOPROLOL TARTRATE 50 MG TAB PO SCH ×2 (16:01→22:11)
[2018-01-14] MEDS: MYCOPHENOLATE MOFETIL 500 MG TAB PO SCH ×2 (16:01→22:12)
[2018-01-14] MEDS: levETIRAcetam 500 MG TAB PO SCH ×2 (16:01→22:11)
[2018-01-14] MEDS: LACTATED RINGERS 1,000 ML IV SCH (16:02)
[2018-01-14] MEDS: SODIUM BICARBONATE TAB 650 MG TAB PO SCH ×2 (16:02→22:12)
[2018-01-14] MEDS: NICOTINE 21MG/24HR PATCH TRANSDERM SCH (16:05)
[2018-01-15 06:29] LABS: Basophils % (A) 1 %; Eosinophils # (A) 0.1 k/uL (0-0.7); Eosinophils % (A) 3 %; HCT 36.2 % (39.0-53.0); HGB 12.2 gm/dL (13.0-17.5); Lymphocytes # (A) 1.6 k/uL (1.0-4.8); Lymphocytes % (A) 31 %; MCH 31.2 pg (25.0-35.0); MCHC 33.7 g/dL (31.0-37.0); MCV 92.5 fL (80.0-100.0); Mean Platelet Volume 6.9; Monocytes # (A) 0.4 k/uL (0-1.0); Monocytes % (A) 9 %; Neutrophils # (A) 2.8 k/uL (1.3-7.7); Neutrophils % (A) 55 %; Platelet Count 255 k/uL (150-450); RBC 3.91 m/uL (4.30-5.90); RDW 14.1 % (11.5-15.5); WBC 5.1 k/uL (3.8-10.6)
[2018-01-15 06:39] LABS: Calcium 8.7 mg/dL (8.4-10.2); Potassium 4.4 mmol/L (3.5-5.1)
[2018-01-15] MEDS: CEFEPIME 2 GM in SODIUM CHLORIDE 0.9% 50 ML IVPB SCH ×2 (06:44→17:41)
[2018-01-15] MEDS: LACTATED RINGERS 1,000 ML IV SCH ×2 (06:44→23:30)
[2018-01-15] MEDS: MORPHINE SULFATE 2 MG/ML SYRINGE IVP PRN (08:10)
[2018-01-15] MEDS: NICOTINE 21MG/24HR PATCH TRANSDERM SCH (09:14)
[2018-01-15] MEDS: HEPARIN SODIUM,PORCINE 5,000 UNIT/ML 1 ML VIAL SQ SCH ×3 (09:14→23:16)
[2018-01-15] MEDS: hydrALAZINE HCL 20 MG/ML 1 ML VIAL IVP PRN ×2 (09:17→20:15)
--- NOTE | 2018-01-15 09:51 | CONS ---
CONSULTATION DATE OF CONSULTATION: 01/14/2018. CHIEF COMPLAINT: Altered mental status. HISTORY OF PRESENT ILLNESS: Mr. Pack is a 67-year-old male, who is being evaluated today on 01/14/2018 by the neurology service per the request of Dr. Aguilar for altered mental status. The patient was admitted to [facility] back on 01/09/2018 for multiple falls. The patient had a severe fall prior to arrival and he could not get up. He suffered a wound/cut on the hip region which apparently became infected. Infectious Disease is following. He does have an open wound on the left hip region. He had been doing well and was actually scheduled to be transferred to inpatient rehab on Sunday, but over the weekend became more lethargic. According to nursing staff, prior to the weekend, the patient was able to ambulate with the help of physical therapy and he was oriented x3. The patient does have history of hepatitis C and hepatitis B. A stat CT scan of the brain was done yesterday which showed an old infarct involving the right posterior cerebral artery distribution along with small- vessel ischemic changes. This was unchanged when compared to his admission CT scan of the brain on 01/09/2018. His CBC today is normal. His basic metabolic profile showed renal insufficiency with a BUN of 23 and creatinine of 1.81 and his bicarb was low at 16. At the time of my evaluation, he is quite drowsy. When he is aroused, he mumbles and does not follow any commands. PAST MEDICAL HISTORY: Stroke, hypertension, hepatitis B and C, seizure disorder, left hemiparesis secondary to stroke, coronary artery disease, coronary artery stent placement, history of liver transplant, multiple orthopedic surgeries. SOCIAL HISTORY: The patient is a current every day smoker. There is no history of any alcohol or drug use. FAMILY HISTORY: Positive for heart disease. HOME MEDICATIONS: Reviewed in the chart. ALLERGIES: BENADRYL. REVIEW OF SYSTEMS: Unable to obtain due to patient's mental status changes. PHYSICAL EXAM: Vital signs show a temperature of 97.6, pulse 75, respirations 16, blood pressure 171/84. GENERAL APPEARANCE: The patient is a well-developed male who appears to be lethargic. HEENT: Normocephalic, atraumatic, no facial asymmetry is seen. NECK: Supple with no masses felt. CARDIOVASCULAR: Regular rate and rhythm. ABDOMEN: Nontender, nondistended. Extremities showed trace edema with no clubbing seen. His left hip is bandaged. NEUROLOGICAL EXAM: The patient is quite lethargic. His speech is slurred. He does not follow any commands. He does move his right upper and right lower extremity spontaneously. No movement is seen on the left side. No seizure-like activity is seen. No obvious facial asymmetry is noticed on cranial nerve testing. IMPRESSION: 1. Altered mental status. 2. Acute metabolic and infectious encephalopathy. 3. Renal insufficiency. 4. Wound infection. 5. History of liver transplant. 6. Hepatitis B and C. RECOMMENDATION: The patient's slow deterioration over the weekend is more consistent with an acute encephalopathy rather than an acute ischemic stroke. He continues to be quite lethargic. I did review his updated CT scan of the brain which showed no changes from his admission study showing an old right posterior cerebral artery distribution stroke. He continues to have left hemiparesis from that. The patient does have a history of seizure disorder and continues to be on Keppra for this. An EEG has been ordered. I will order a serum ammonia level, TSH, and vitamin B12 level. I will repeat a CT scan of the brain in 24 hours. His acute encephalopathy is likely due to metabolic and infectious etiologies given his renal and hepatic history and also given his wound infection. Infectious Disease is following. Continue neuro checks. I will continue to follow with you. Further recommendations to follow. Thank you for allowing me to participate in the care of your patient. If you have any questions, please feel free to contact me. LEILANI / NEFTALI: [id number] /
[2018-01-15] MEDS: amLODIPine 5 MG TAB PO SCH ×2 (10:23→19:28)
[2018-01-15] MEDS: FERROUS SULFATE 325 MG TAB PO SCH (10:24)
[2018-01-15] MEDS: SODIUM BICARBONATE TAB 650 MG TAB PO SCH ×2 (10:24→19:29)
[2018-01-15] MEDS: ASPIRIN 325 MG TAB PO SCH (10:24)
[2018-01-15] MEDS: CHOLECALCIFEROL 1,000 UNIT TAB PO SCH (10:24)
[2018-01-15] MEDS: levETIRAcetam 500 MG TAB PO SCH (10:24)
[2018-01-15] MEDS: METOPROLOL TARTRATE 50 MG TAB PO SCH ×2 (10:24→19:28)
[2018-01-15] MEDS: hydrALAZINE HCL 10 MG TAB PO SCH ×3 (10:24→19:29)
[2018-01-15] MEDS: MYCOPHENOLATE MOFETIL 500 MG TAB PO SCH ×2 (10:24→19:29)
--- NOTE | 2018-01-15 11:25 | CT ---
EXAMINATION TYPE: CT brain wo con DATE OF EXAM: 01/15/2018 COMPARISON: 01/14/2018 HISTORY: Altered mental status CT DLP: 1810 mGycm Automated exposure control for dose reduction was used. FINDINGS: There is evidence of remote lacunar infarct involving the right thalamus. Large area of previous infa rct involving the right parietal and occipital lobe noted. Intracranial atherosclerotic changes are seen. Generalized degenerative changes stable with diffuse areas of abnormal attenuation throughout the whi te matter bilaterally. No mass effect or midline shift. Calvarium intact. Changes of chronic sinusitis noted with severe chalino nges involving the left maxillary sinus IMPRESSION: 1. Degenerative and remote ischemic change. Nonspecific white matter changes are most typical of clarisa te microvascular ischemia. If there is clinical concern for acute ischemia correlate with MRI. 2. Changes of chronic sinusitis
[2018-01-15] MEDS ORDERED: cloNIDine 0.2 MG/24HR PATCH 1 PATCH PATCH TRANSDERM SCH (11:45)
--- NOTE | 2018-01-15 11:48 | P.PN ---
Subjective Progress Note Date: 01/15/18 Principal diagnosis: Left hip pain, weakness Patient is still significantly lethargic, he is not talking as normally as he used to earlier in the admission. He is not able to swallow any medication or food at this point due to his mental status. Objective - Vital Signs Vital signs: Vital Signs Temp 98.2 F 01/15/18 07:44 Pulse 108 H 01/15/18 07:44 Resp 16 01/15/18 07:44 BP 169/105 01/15/18 09:09 Pulse Ox 99 01/15/18 09:30 Intake & Output 01/14/18 01/15/18 01/15/18 18:59 06:59 18:59 Intake Total 250 Output Total 50 150 Balance -50 100 Weight 89 kg 88.5 kg Intake: Intake, IV Titration 250 Amount Cefepime 2 gm In Sodium 50 Chloride 0.9% 50 ml @ 100 mls/hr IVPB Q12H VANE Rx# :[id number] Lactated Ringers 1,000 ml 200 @ 50 mls/hr IV .Q20H VANE Rx#:[id number] Oral 0 Output: Urine 50 150 Other: Voiding Method Diaper Diaper Diaper Incontinent Incontinent # Voids 1 1 1 # Bowel Movements 0 - Exam Constitutional: No acute distress, Lethargic Eyes: Anicteric sclerae, moist conjunctiva, no lid-lag Pupils equal round reactive to light ENMT: NC/AT Oropharynx clear, no erythema, or exudates Neck: Supple, FROM, no masses, or JVD No carotid bruits No thyromegaly Lungs: Clear to auscultation Clear to percussion Normal respiratory effort, no accessory muscle use Cardiovascular: Heart regular in rate and rhythm, No murmurs, gallops, or rubs No peripheral edema Abdominal: Soft Nontender, no guarding, rebound or rigidity Abdomen moving with respiration Normoactive bowel sounds No hepatomegaly, No splenomegaly No palpable mass No abdominal wall hernia noted Skin: Patient has eschar over his left foot 2 x 2 centimeter over the lateral aspect of the dorsum of the left foot Patient also has erythema and blistering 10 x 10 cm over his left hip tender to palpation Normal temperature, tone, texture, turgor No induration No subcutaneous nodules No rash, Extremities: Abduction of the left hip, external rotation of the left leg, tenderness to palpation of the left hip No digital cyanosis No clubbing Pedal pulses intact and symmetrical Radial pulses intact and symmetrical No calf tenderness Psychiatric: Alert and oriented to person, place and time Patient is paranoid fair judgment Neuro Lethargic, wakes up to loud voices, not following commands. Lymphatics: no palpable cervical or supraclavicular , or inguinal lymph nodes - Labs CBC & Chem 7: 01/15/18 06:01 01/15/18 06:01 Labs: Abnormal Lab Results - Last 24 Hours (Table) 01/15/18 01/15/18 Range/Units 06:01 06:01 RBC 3.91 L (4.30-5.90) m/uL Hgb 12.2 L (13.0-17.5) gm/dL Hct 36.2 L (39.0-53.0) % Chloride 112 H (98-107) mmol/L Carbon Dioxide 18 L (22-30) mmol/L BUN 26 H (9-20) mg/dL Creatinine 1.88 H (0.66-1.25) mg/dL Assessment and Plan Plan: #Acute encephalopathy: Likely hypoactive delirium, subtle seizures in the differential. R/O stroke. Head CT reviewed, no acute process EEG done, result pending Neurology follow-up Hold by mouth meds as he is not able to swallow NG tube insertion in order to administer medications, communicated with RN #Elevated troponins could be secondary to CKD, along with malignant hypertension Echocardiogram checked, within normal limits. 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 Has significant proteinuria in the urine. Continue IV fluid hydration Follow up creatinine in a.m. Nephrology is following Avoid nephrotoxic meds Continue to monitor urine output #Left hip erythema and blistering Grew enterobacter cloace from the wound cultures Antibiotics according to ID, currently on cefepime #Chronic left intertrochanteric fracture Orthopedic's consult--no surgical intervention needed now, follow-up at [facility] orthopedic department Pain control #Chronic hepatitis C untreated, history of liver transplant on immunosuppressants Cyclosporine level checked--within therapeutic range Continue CellCept and cyclosporine #History of seizures, most recent breakthrough seizure was over 5 months ago Continue with Keppra Seizure precautions #Diet as tolerated #Tobacco smoking abuse Patient counseled to quit smoking Nicotine replacement therapy offered #History of CVA Continue with aspirin and statin #Gen. weakness PT Disposition: Likely needs subacute rehab
--- NOTE | 2018-01-15 12:18 | PN ---
PROGRESS NOTE The patient is seen for followup for acute kidney injury and chronic kidney disease. This morning, his mentation is depressed. The patient is confused. He did have a CAT scan done which did not show any acute changes. PHYSICAL EXAMINATION: On examination, blood pressure remains elevated at 169/105, heart rate 108 per minute. Patient is afebrile. He has not been able to take his oral medications. He is maintained on IV hydralazine for his blood pressure. PHYSICAL EXAMINATION: On examination, his blood pressure 169/105, heart rate 108 per minute. He is afebrile. EXAMINATION OF THE HEART: S1, S2. EXAMINATION OF THE LUNGS: Bilateral breath sounds are heard. Abdomen is soft, nontender. Examination of the lower extremities shows no significant edema. [employer] exam cannot be assessed in detail. The patient is confused, however, he seems to be moving his extremities. He does have the left hemiparesis. LABS: Labs from today show sodium 140, potassium 4.4, chloride 112, BUN 26, serum creatinine 1.8, hemoglobin 12.2 g/dL. ASSESSMENT: 1. Acute kidney injury, prerenal, currently improved. Renal function is being stable with creatinine at about 1.8 mg/dL. 2. 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 Plans are for a kidney biopsy down the road, particularly given the underlying hepatitis C. 3. Status post liver transplant, maintained on CellCept and cyclosporine with levels within range. 4. Hepatitis C with interrupted followup as outpatient, being followed by ID. 5. Metabolic acidosis secondary to renal failure, maintained on oral sodium bicarb. 6. Altered mentation. Neurology has been consulted. There are no new medications. Brain CT was negative. 7. Hypertension, uncontrolled. I will add a clonidine patch as patient is not able to take oral medications. He is maintained on IV hydralazine. MMODL / IJN: [id number] /
--- NOTE | 2018-01-15 15:03 | CONS ---
CONSULTATION DATE OF CONSULTATION: 01/15/2018 CHIEF COMPLAINT: Altered mental status. HISTORY OF PRESENT ILLNESS: This is a 67-year-old male continued to be evaluated by the Neurology Service for altered mental status. He was admitted to the [facility] on 01/09/2018 for multiple falls. His significant history of stroke, hypertension, hepatitis, seizures, and left hemiparesis from his stroke. He also has a significant cardiac history having coronary artery disease, stent placement. He also has a history of liver transplant and multiple orthopedic surgeries. He has had several surgeries to his left hip and currently has an active infection and is being followed by Infectious Disease. Before coming to the hospital, it was reported that he was ambulating and alert and oriented. Initial CT in the ER showed no acute ischemic changes. It did show an old infarct of the right posterior cerebral artery distribution. A repeat CT was done and was unchanged. Another CT was also performed and again no acute changes were noted. He continues to be obtunded, but awakable. An EEG has been ordered but not yet accomplished. At the time of my exam and this dictation, I am not able to access records due to a technical problem. We did order some serum ammonia levels, TSH and a B12 level, the results of which I do not have. PHYSICAL EXAM: Previous vitals are reviewed in the chart. GENERAL APPEARANCE: This is a well-developed, male in no acute distress. HEENT: Normocephalic, atraumatic. There is no facial asymmetry. NECK: Supple without masses. There is no nuchal rigidity. CARDIOVASCULAR: Rate and rhythm are regular. ABDOMEN: Nontender, nondistended. NEUROLOGICAL EXAM: He continues to be obtunded. He is not following commands. He does have spontaneous movement of his right upper and lower extremities with no abnormality seen. He moves his left arm spontaneously, but does have contractures. I see no movement of the left lower extremity. There is no facial asymmetry. He does respond to painful stimuli and even to light touch. IMPRESSION: 1. Altered mental status. 2. Metabolic and infectious encephalopathy. 3. Renal insufficiency. 4. Wound infection. 5. History of liver transplant. 6. Chronic hepatitis. RECOMMENDATIONS: Neurologically his exam has not changed and is still consistent with multifactorial encephalopathy. There has been no seizure activity noted. We are awaiting the EEG for evaluation. Continue Keppra for this. Continue treatment for his numerous other potential etiologies for his encephalopathy. No further neurological workup is needed. Barring any unforeseen abnormalities on his EEG, he would be cleared from a neurological standpoint, and we can be consulted on an as-needed basis. I performed a History & Physical Examination of the patient and discussed their management with nurse practitioner. I reviewed the nurse practitioner's note and agree with the documented findings and plan of care. LEILANI / OSMARN: [id number] /
--- NOTE | 2018-01-15 19:51 | EEG ---
ELECTROENCEPHALOGRAM REPORT DATE OF SERVICE: 01/15/2018 REASON FOR TESTING: Altered mental status. DESCRIPTION OF THE PROCEDURE: This EEG was performed using a 21-channel digital electroencephalograph, following international 10-20 system. DESCRIPTION OF THE RECORDING: From the beginning of the tracing, and with the patient's eyes closed, the background rhythm was mostly consisting of 5 to 6 Hz theta frequency in the posterior occipital leads. No obvious asymmetry is seen. Photic stimulation was performed with no driving response seen. No pathological waves were elicited. Frequent muscle artifacts are noticed. Hyperventilation was not performed. The patient does reach stage stage II of sleep during the tracing and occasional sleep spindles are seen. No epileptiform discharges were seen. His EKG lead showed a regular rate and rhythm. INTERPRETATION: This asleep and awake EEG is abnormal due to the presence of generalized slowing of the background rhythm, mostly in the theta range. This is consistent with moderate encephalopathy. No epileptiform discharges were seen. The absence of epileptiform discharges does not rule out the diagnosis of epilepsy; therefore clinical correlation is recommended. MMELIZABETHL / IJN: [id number] /
[2018-01-15] MEDS: levETIRAcetam IV 750 MG in SODIUM CHLORIDE 0.9% 100 ML IVPB SCH (20:15)
[2018-01-16] MEDS: hydrALAZINE HCL 20 MG/ML 1 ML VIAL IVP PRN ×3 (03:46→19:59)
[2018-01-16] MEDS: CEFEPIME 2 GM in SODIUM CHLORIDE 0.9% 50 ML IVPB SCH ×2 (05:17→17:06)
--- NOTE | 2018-01-16 07:55 | P.CONS ---
History of Present Illness - Reason for Consult Consult date: 01/15/18 Placement of NJ tube endoscopically. - History of Present Illness The patient is a 67-year-old male with multiple medical problems as noted below , he was admitted to the hospital 01/09/2018 following a fall. The patient had left hip fracture and gram-negative septicemia and is presently lethargic and encephalopathic unable to take his medications or any other intake spontaneously. Multiple attempts were made earlier to place an NG tube to administer his medications but the patient was fighting and all attempts were unsuccessful. I was asked to see him to consider placement of an NG tube endoscopically after sedation. Review of Systems ROS unobtainable: due to mental status Past Medical History Past Medical History: Cancer, CVA/TIA, Hypertension, Liver Disease, Musculoskeletal Disorder (History of multiple surgeries of the left lower extremity had the left hip and distal femur), Seizure Disorder, Vascular Disorder Additional Past Medical History / Comment(s): left sided weakness from stroke, HEPATITIS C History of Any Multi-Drug Resistant Organisms: None Reported Past Surgical History: Heart Catheterization With Stent Additional Past Surgical History / Comment(s): Liver transplant, LEFT FEMUR REPAIR x2 Date of Last Stent Placement:: 2012 Past Psychological History: No Psychological Hx Reported Additional Psychological History / Comment(s): Single. Disabled. Status post liver transplant. History of injection drug use. Chronic tobacco smoker denies current alcohol use. Denied experience. No animal exposures Smoking Status: Current every day smoker Past Alcohol Use History: None Reported Past Drug Use History: None Reported - Past Family History Mother Family Medical History: Congestive Heart Failure (CHF) Father Family Medical History: Congestive Heart Failure (CHF), Myocardial Infarction ( HI) Medications and Allergies Home Medications Medication Instructions Recorded Confirmed Type Aspirin 81 mg PO HS 09/16/15 01/09/18 History amLODIPine BESYLATE [Norvasc] 5 mg PO BID 09/16/15 01/09/18 History Cyclosporine, Modified [Gengraf] 75 mg PO HS 12/16/15 01/09/18 History Cyclosporine, Modified [Gengraf] 75 mg PO QAM 12/16/15 01/09/18 History Metoprolol Tartrate [Lopressor] 50 mg PO DAILY 12/16/15 01/09/18 History Mycophenolate Mofetil [Cellcept] 500 mg PO BID 12/16/15 01/09/18 History Cholecalciferol [Vitamin D3] 3,000 unit PO DAILY 01/09/18 01/09/18 History Ferrous Sulfate [Feosol] 325 mg PO DAILY 01/09/18 01/09/18 History levETIRAcetam [Keppra] 1,000 mg PO Q12HR 01/09/18 01/09/18 History Allergies Allergy/AdvReac Type Severity Reaction Status Date / Time diphenhydramine HCl Allergy Unknown Verified 01/09/18 17:20 [From Benadryl] Physical Exam Vitals: Vital Signs Temp Pulse Resp BP Pulse Ox 01/15/18 20:00 98.4 F 99 18 182/87 98 01/15/18 16:00 97.9 F 98 16 172/82 98 01/15/18 12:00 103 H 18 167/94 99 01/15/18 09:30 99 01/15/18 09:09 169/105 01/15/18 07:44 98.2 F 108 H 16 195/86 99 01/15/18 04:10 98.1 F 100 18 164/85 99 01/15/18 00:05 98.8 F 100 19 189/86 99 Intake and Output 01/15/18 01/15/18 01/15/18 06:59 14:59 22:59 Intake Total 250 550 Output Total 150 Balance 100 550 Intake: Intake, IV Titration 250 550 Amount Cefepime 2 gm In Sodium 50 50 Chloride 0.9% 50 ml @ 100 mls/hr IVPB Q12H VANE Rx# :[id number] Lactated Ringers 1,000 ml 200 500 @ 50 mls/hr IV .Q20H VANE Rx#:[id number] Oral 0 Output: Urine 150 Other: Voiding Method Diaper Diaper Diaper Incontinent # Voids 1 1 1 # Bowel Movements 0 0 Weight 88.5 kg General: Appears stated age lethargic and in distress Head and neck: Normocephalic and atraumatic. Conjunctivae pink sclerae not icteric. Mucous membranes somewhat dry. No masses in the neck or tracheal shifts Lungs: Clear to auscultation with no dullness to percussion Heart: Regular, no abnormal sounds, murmurs, gallops or friction rubs Abdomen: Soft, no masses or peritoneal signs. Bowel sounds present Extremities: No cyanosis or edema Neurologic: Lethargic moving all extremities Results CBC & Chem 7: 01/15/18 06:01 01/15/18 06:01 Labs: Abnormal Lab Results - Last 24 Hours (Table) 01/15/18 01/15/18 Range/Units 06:01 06:01 RBC 3.91 L (4.30-5.90) m/uL Hgb 12.2 L (13.0-17.5) gm/dL Hct 36.2 L (39.0-53.0) % Chloride 112 H (98-107) mmol/L Carbon Dioxide 18 L (22-30) mmol/L BUN 26 H (9-20) mg/dL Creatinine 1.88 H (0.66-1.25) mg/dL Assessment and Plan Assessment: 67-year-old male with acute metabolic encephalopathy and inability to take his medications by spontaneous oral intake including his immunosuppressants which he takes following his liver transplant. Plan: As per our discussion, I would consider placement of an NG tube under sedation with endoscopic guidance. The nursing staff are currently trying to obtain consent from his legal guardians and we will proceed accordingly.
[2018-01-16] MEDS: levETIRAcetam IV 750 MG in SODIUM CHLORIDE 0.9% 100 ML IVPB SCH ×2 (08:36→19:59)
[2018-01-16] MEDS: HEPARIN SODIUM,PORCINE 5,000 UNIT/ML 1 ML VIAL SQ SCH ×3 (08:39→23:08)
[2018-01-16] MEDS: NICOTINE 21MG/24HR PATCH TRANSDERM SCH (08:39)
[2018-01-16] MEDS: MYCOPHENOLATE MOFETIL 500 MG TAB PO SCH ×2 (08:47→19:39)
[2018-01-16] MEDS: CHOLECALCIFEROL 1,000 UNIT TAB PO SCH (08:47)
[2018-01-16] MEDS: ASPIRIN 325 MG TAB PO SCH (08:47)
[2018-01-16] MEDS: amLODIPine 5 MG TAB PO SCH ×2 (08:47→19:38)
[2018-01-16] MEDS: FERROUS SULFATE 325 MG TAB PO SCH (08:47)
[2018-01-16] MEDS: METOPROLOL TARTRATE 50 MG TAB PO SCH ×2 (08:47→19:38)
[2018-01-16] MEDS: hydrALAZINE HCL 10 MG TAB PO SCH ×3 (08:47→19:39)
[2018-01-16] MEDS: SODIUM BICARBONATE TAB 650 MG TAB PO SCH ×2 (08:48→19:39)
[2018-01-16] MEDS ORDERED: cloNIDine 0.3 MG/24HR PATCH 1 PATCH PATCH TRANSDERM SCH (12:00)
--- NOTE | 2018-01-16 12:07 | PN ---
PROGRESS NOTE The patient is seen for followup for acute kidney injury. He is currently not able to take any medications p.o. Patient has been confused. He has not been talking much at all. The patient is being seen by Neurology. He has had repeat CT scans done which were negative for any acute event. The patient also has underlying hepatitis C and history of simultaneous kidney-pancreas transplant. Blood pressure has been running high. The patient is maintained on Ringer lactate at about 50 mL/h. He is maintained on clonidine patch as well as IV hydralazine for blood pressure control. The patient has been incontinent. His serum creatinine has been stable at about 1.8 mg/dL for the past 4 days. EXAMINATION: This morning, patient is comfortable. He is not communicating much. He is arousable, but does not talk. Blood pressure 187/89 this morning, heart rate 83 per minute. Patient is afebrile. HEART: S1, S2. LUNGS: Bilateral breath sounds are heard. Abdomen is soft, nontender. Lower extremities show no significant edema. The patient has left hemiparesis. LABS: Not available from today. ASSESSMENT: 1. Acute kidney injury, prerenal, renal function currently stable and improved with serum creatinine staying at about 1.8 mg/dL. 2. Chronic kidney disease with underlying proteinuria in the nephrotic range, which will need further workup and biopsy. The patient has been on cyclosporine for liver transplant, which can also cause chronic kidney disease, but is not associated with significant proteinuria. 3. Underlying hepatitis C. 4. Hypertension, uncontrolled. I will increase the clonidine to 0.3 mg patch. Continue with the IV hydralazine for blood pressure control, will increase it to q.2-4 hours p.r.n. 5. Altered mentation, being followed by Neurology. There are no new medications. No acute events noted on CT of the brain. The patient does have underlying history of seizures. He is maintained on IV Keppra. 6. Status post simultaneous kidney-pancreas transplant, currently not able to take any oral immunosuppressive medications. I will add IV Solu-Medrol. PLAN: Change the clonidine patch to 0.3 mg. Increase hydralazine to q.2-4 hours p.r.n. IV and I will add IV Solu-Medrol, as patient is not able to take any of his transplant medications. MMODL / IJN: [id number] /
[2018-01-16] MEDS: methylPREDNISolone SOD SUCCI 40 MG/ML 1 ML VIAL IV SCH ×3 (12:28→20:44)
--- NOTE | 2018-01-16 14:50 | P.PN ---
Subjective Progress Note Date: 01/16/18 Principal diagnosis: Left hip pain, weakness Patient is still not answering questions as he used to earlier in the admission. He had 2 head computed tomography scan that didn't show acute process. His he has some metal plates in his left leg and is not able to undergo an MRI. Neurology planning LP today. Objective - Vital Signs Vital signs: Vital Signs Temp 96.7 F L 01/16/18 12:00 Pulse 85 01/16/18 12:00 Resp 14 01/16/18 12:00 BP 187/81 01/16/18 12:00 Pulse Ox 99 01/16/18 12:00 Intake & Output 01/15/18 01/16/18 01/16/18 18:59 06:59 18:59 Intake Total 550 350 250 Balance 550 350 250 Weight 90 kg Intake: IV 350 250 Lactated Ringers 1,000 ml 250 150 @ 50 mls/hr IV .Q20H VANE Rx#:[id number] levETIRAcetam IV 750 mg 100 100 In Sodium Chloride 0.9% 100 ml @ 400 mls/hr IVPB Q12HR VANE Rx#:[id number] Intake, IV Titration 550 Amount Cefepime 2 gm In Sodium 50 Chloride 0.9% 50 ml @ 100 mls/hr IVPB Q12H VANE Rx# :[id number] Lactated Ringers 1,000 ml 500 @ 50 mls/hr IV .Q20H VANE Rx#:[id number] Oral 0 Other: Voiding Method Diaper Diaper Diaper # Voids 1 1 3 # Bowel Movements 0 - Exam Constitutional: No acute distress, Lethargic Eyes: Anicteric sclerae, moist conjunctiva, no lid-lag Pupils equal round reactive to light ENMT: NC/AT Oropharynx clear, no erythema, or exudates Neck: Supple, FROM, no masses, or JVD No carotid bruits No thyromegaly Lungs: Clear to auscultation Clear to percussion Normal respiratory effort, no accessory muscle use Cardiovascular: Heart regular in rate and rhythm, No murmurs, gallops, or rubs No peripheral edema Abdominal: Soft Nontender, no guarding, rebound or rigidity Abdomen moving with respiration Normoactive bowel sounds No hepatomegaly, No splenomegaly No palpable mass No abdominal wall hernia noted Skin: Patient has eschar over his left foot 2 x 2 centimeter over the lateral aspect of the dorsum of the left foot Patient also has erythema and blistering 10 x 10 cm over his left hip tender to palpation Normal temperature, tone, texture, turgor No induration No subcutaneous nodules No rash, Extremities: Abduction of the left hip, external rotation of the left leg, tenderness to palpation of the left hip No digital cyanosis No clubbing Pedal pulses intact and symmetrical Radial pulses intact and symmetrical No calf tenderness Neuro Lethargic, wakes up to loud voices, not following commands. - Labs CBC & Chem 7: 01/15/18 06:01 01/15/18 06:01 Assessment and Plan Plan: #Acute encephalopathy: Likely hypoactive delirium, subtle seizures in the differential. R/O stroke. Head CT reviewed, no acute process EEG done, reviewed Neurology follow-up--plan for LP Holding by mouth meds as he is not able to swallow NG tube insertion in order to administer medications, D/W Dr. Erazo the need to insert a tube under endoscopy as nursing unable to place an NG Consent to be obtained from an emergency guardian, start court process tomorrow #Elevated troponins could be secondary to CKD, along with malignant hypertension Echocardiogram checked, within normal limits. 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 Has significant proteinuria in the urine. Continue IV fluid hydration Follow up creatinine in a.m. Nephrology is following Avoid nephrotoxic meds Continue to monitor urine output #Left hip erythema and blistering Grew enterobacter cloace from the wound cultures Antibiotics according to ID, currently on cefepime #Chronic left intertrochanteric fracture Orthopedic's consult--no surgical intervention needed now, follow-up at [facility] orthopedic department Pain control #Chronic hepatitis C untreated, history of liver transplant on immunosuppressants Cyclosporine level checked--within therapeutic range Continue CellCept and cyclosporine once NG tube inserted. #History of seizures, most recent breakthrough seizure was over 5 months ago Continue with Keppra Seizure precautions #Diet as tolerated #Tobacco smoking abuse Patient counseled to quit smoking Nicotine replacement therapy offered #History of CVA Continue with aspirin and statin #Gen. weakness PT Disposition: Likely needs subacute rehab
--- NOTE | 2018-01-16 14:58 | PN ---
PROGRESS NOTE DATE OF SERVICE: 01/16/2018. SUBJECTIVE: The patient is a 67-year-old male, who continues to be followed by the neurology service for altered mental status. The patient does have multifactorial encephalopathy due to infectious and metabolic etiologies, but he had significantly worsened over the past couple of days. Yesterday he was noticed to have nuchal rigidity and some posturing. I had ordered a lumbar puncture to be done but this has not been completed as of yet due to difficulty obtaining a consent according to nursing staff. No seizure-like activity has been reported. He continues to be on Keppra 750 mg b.i.d. IV for his history of seizures. PAST MEDICAL HISTORY: Stroke, hypertension, hepatitis, seizure disorder, coronary artery disease, history of liver transplant, recent fall with wound infection, multiple orthopedic surgeries. OBJECTIVE: Vital signs are stable and reviewed in the chart. GENERAL APPEARANCE: The patient is a male who is unresponsive to verbal stimuli. He is responsive to touch and painful stimuli. HEENT: Normocephalic, atraumatic, no facial asymmetry is seen. NECK: Shows nuchal rigidity. CARDIOVASCULAR: Regular rate and rhythm. Abdomen nontender nondistended. EXTREMITIES: Showed trace edema with no clubbing seen. NEUROLOGICAL EXAM: The patient continues to be lethargic. He does not respond to any verbal stimuli. He does have some posturing with increased rigidity. He does move his right side spontaneously with no movement seen on the left. No obvious facial asymmetry is seen on cranial nerve testing. IMPRESSION: 1. Altered mental status. 2. Possible meningitis. 3. Acute encephalopathy, metabolic and infectious in etiology. 4. Renal insufficiency. 5. Wound infection. 6. Seizure disorder. 7. History of liver transplant. RECOMMENDATION: The patient's exam and recent history is concerning for meningitis. As mentioned above, a lumbar puncture was ordered yesterday but this was not done due to difficulty obtaining a consent. I do believe that the lumbar puncture is a medical necessity and a consent does not need to be obtained if we cannot get it. I do recommend proceeding with a lumbar puncture. The CSF orders have already been given to the nursing staff. As for his seizure history, I will keep him on his current dose of Keppra IV. Infectious Disease is following. Continue the rest of your current workup and management. Continue neuro checks. I will continue to follow with you. Further recommendations to follow. MMODL / IJN: [id number] /
[2018-01-16 16:37] LABS: Glucose,CSF 51 mg/dL (40-70); Total Protein,CSF 56 mg/dL (12-60)
--- NOTE | 2018-01-16 16:51 | FL ---
Fluoroscopic guided lumbar puncture HISTORY: Altered mental status PROCEDURE: The skin overlying the L3 vertebral body was localized with fluoroscopy. The skin overlying was prepp ed and draped in sterile fashion. Lidocaine used for local anesthesia. 22-gauge needle was advanced i nto the thecal sac until cerebrospinal fluid was returned in the hub of the needle, 6 cc were obtaine d for analysis. Spot image obtained verifying placement. Needle was removed. Patient remained stable without immediate complication. 3 minutes 40 seconds fluoroscopy time supplied. 2 intraoperative images document the procedure. IMPRESSION: Fluoroscopic guided lumbar puncture to obtain cerebrospinal fluid, this procedure perform ed by the undersigned. Microbiology and laboratory analysis is pending.
[2018-01-16 16:54] LABS: Appearance,CSF Clear; CSF Tube Number 3; CSF Tube Volume 2.5; Nucleated Cells, CSF 0 u/L (0-5); Red Blood Cell,CSF 3 u/L (0-10)
[2018-01-16] MEDS: LACTATED RINGERS 1,000 ML IV SCH (19:56)
[2018-01-17] MEDS: hydrALAZINE HCL 20 MG/ML 1 ML VIAL IVP PRN ×2 (04:18→08:39)
[2018-01-17] MEDS: CEFEPIME 2 GM in SODIUM CHLORIDE 0.9% 50 ML IVPB SCH ×2 (05:23→16:58)
[2018-01-17 06:15] LABS: Basophils % (A) 0 %; Eosinophils % (A) 0 %; HCT 34.8 % (39.0-53.0); HGB 11.3 gm/dL (13.0-17.5); Lymphocytes # (A) 0.5 k/uL (1.0-4.8); Lymphocytes % (A) 20 %; MCH 30.1 pg (25.0-35.0); MCHC 32.3 g/dL (31.0-37.0); MCV 93.2 fL (80.0-100.0); Mean Platelet Volume 6.7; Monocytes # (A) 0.1 k/uL (0-1.0); Monocytes % (A) 3 %; Neutrophils # (A) 2.1 k/uL (1.3-7.7); Neutrophils % (A) 77 %; Platelet Count 301 k/uL (150-450); RBC 3.74 m/uL (4.30-5.90); RDW 14.2 % (11.5-15.5); WBC 2.7 k/uL (3.8-10.6)
[2018-01-17 06:32] LABS: Albumin 2.7 g/dL (3.5-5.0); Calcium 8.7 mg/dL (8.4-10.2); Phosphorus 4.4 mg/dL (2.5-4.5); Potassium 4.7 mmol/L (3.5-5.1); Total Bilirubin 0.3 mg/dL (0.2-1.3); Total Protein 5.6 g/dL (6.3-8.2)
[2018-01-17] MEDS: FERROUS SULFATE 325 MG TAB PO SCH (08:20)
[2018-01-17] MEDS: hydrALAZINE HCL 10 MG TAB PO SCH (08:20)
[2018-01-17] MEDS: amLODIPine 5 MG TAB PO SCH ×2 (08:20→14:41)
[2018-01-17] MEDS: CHOLECALCIFEROL 1,000 UNIT TAB PO SCH (08:20)
[2018-01-17] MEDS: ASPIRIN 325 MG TAB PO SCH (08:20)
[2018-01-17] MEDS: SODIUM BICARBONATE TAB 650 MG TAB PO SCH ×2 (08:21→20:35)
[2018-01-17] MEDS: MYCOPHENOLATE MOFETIL 500 MG TAB PO SCH ×2 (08:21→20:34)
[2018-01-17] MEDS: METOPROLOL TARTRATE 50 MG TAB PO SCH ×2 (08:21→14:41)
[2018-01-17] MEDS: NICOTINE 21MG/24HR PATCH TRANSDERM SCH (08:25)
[2018-01-17] MEDS: methylPREDNISolone SOD SUCCI 40 MG/ML 1 ML VIAL IV SCH ×2 (08:25→20:34)
[2018-01-17] MEDS: levETIRAcetam IV 750 MG in SODIUM CHLORIDE 0.9% 100 ML IVPB SCH ×2 (08:25→22:23)
[2018-01-17] MEDS: HEPARIN SODIUM,PORCINE 5,000 UNIT/ML 1 ML VIAL SQ SCH ×3 (08:25→23:51)
[2018-01-17] MEDS: MORPHINE SULFATE 2 MG/ML SYRINGE IVP PRN ×2 (08:39→23:56)
--- NOTE | 2018-01-17 09:42 | P.PN ---
Subjective Patient is seen in follow-up for acute kidney injury. Renal function is worse today with creatinine at 2.03. Patient is still confused. Patient has history of liver transplant. He had lumbar puncture yesterday. NG tube could not be inserted. Blood pressure running high. Vital signs are stable. General: Patient does not respond to verbal commands. HEENT: Head exam is unremarkable. Neck is without jugular venous distension. LUNGS: Lungs are clear to auscultation and percussion. Breath sounds decreased. HEART: Rate and Rhythm are regular. First and second heart sounds normal. No murmurs, rubs or gallops. ABDOMEN: Abdominal exam reveals normal bowel sounds. Non-tender and non- distended. No evidence of peritonitis. EXTREMITITES: No clubbing, cyanosis, or edema. Objective - Vital Signs Vital signs: Vital Signs Temp 98.0 F 01/17/18 04:00 Pulse 97 01/17/18 04:00 Resp 16 01/17/18 04:00 BP 198/87 01/17/18 04:00 Pulse Ox 95 01/17/18 04:00 Intake & Output 01/16/18 01/17/18 01/17/18 18:59 06:59 18:59 Intake Total 650 250 Balance 650 250 Weight 87.5 kg Intake: IV 550 250 Lactated Ringers 1,000 ml 450 150 @ 50 mls/hr IV .Q20H [facility] Rx#:[id number] levETIRAcetam IV 750 mg 100 100 In Sodium Chloride 0.9% 100 ml @ 400 mls/hr IVPB Q12HR [facility] Rx#:[id number] Intake, IV Titration 100 Amount Cefepime 2 gm In Sodium 100 Chloride 0.9% 50 ml @ 100 mls/hr IVPB Q12H [facility] Rx# :[id number] Oral 0 Other: Voiding Method Diaper Diaper # Voids 3 1 1 - Labs CBC & Chem 7: 01/17/18 05:40 01/17/18 05:40 Labs: Abnormal Lab Results - Last 24 Hours (Table) 01/17/18 01/17/18 Range/Units 05:40 05:40 WBC 2.7 L (3.8-10.6) k/uL RBC 3.74 L (4.30-5.90) m/uL Hgb 11.3 L (13.0-17.5) gm/dL Hct 34.8 L (39.0-53.0) % Lymphocytes # 0.5 L (1.0-4.8) k/uL Chloride 113 H (98-107) mmol/L Carbon Dioxide 16 L (22-30) mmol/L BUN 31 H (9-20) mg/dL Creatinine 2.03 H (0.66-1.25) mg/dL Glucose 115 H (74-99) mg/dL Total Protein 5.6 L (6.3-8.2) g/dL Albumin 2.7 L (3.5-5.0) g/dL Assessment and Plan Plan: Assessment: 1. Acute kidney injury secondary to ATN. Also concern for GN. Renal function worsened with creatinine at 2.03 today. Patient is noted to be positive for hepatitis C and has nephrotic range proteinuria. Rest of the serologies were negative. 2. Chronic kidney disease stage III secondary to long-term calcineurin inhibitor use. Baseline creatinine has been in the range of 1.2-1.8. 3. Hypertension with chronic kidney disease. Blood pressures running high. 4. Encephalopathy being followed by neurology. Status post lumbar puncture on January 16. Maintain on IV Keppra. 5. Metabolic acidosis secondary to acute kidney injury. 6. Underlying hepatitis C. 7. Status post liver transplant. Plan: Discontinue LR. Start sodium bicarbonate drip to be run at 50 mL an hour. Hydralazine 10 mg IV every 4 hours. Add labetalol 10 mg IV when necessary every 4 hours for systolic blood pressure greater than 160. Follow-up cultures. Repeat electrolytes in the morning. Since patient is not able to take his antirejection medications, can continue Solu-Medrol for now. He is noted to have nephrotic range proteinuria and will need a kidney biopsy down the road.
[2018-01-17] MEDS ORDERED: DEXTROSE 5% IN WATER 1,000 ML with SODIUM BICARB (1 MEQ/ML) 150 ML IV SCH ×2 (09:45→21:00)
[2018-01-17] MEDS ORDERED: PROPOFOL 10 MG/ML 20 ML VIAL IV ONE (10:48)
[2018-01-17] MEDS ORDERED: LIDOCAINE 1% INJ 10MG/ML (20 ML MDV) ONE (10:48)
[2018-01-17] MEDS ORDERED: MIDAZOLAM 2 MG/2 ML VIAL ONE (10:48)
[2018-01-17] MEDS ORDERED: IV FLUID CONTINUATION 1,000 ML IV ONE (10:49)
--- NOTE | 2018-01-17 11:19 | P.PCN ---
Date of Procedure: 01/17/18 Procedure(s) Performed: Procedure: NG tube placement under deep sedation provided by anesthesia. Preoperative diagnosis: Encephalopathy with inability to take needed immunosuppressive medications by spontaneous oral intake. Postoperative diagnosis: Successful replacement of an 18-[place]izen [place] NG tube after deep sedation obviating the need to perform an upper endoscopy for NG tube placement. Preparation and sedation: Was provided by anesthesia. Brief clinical history: The patient is a 67-year-old male with multiple medical problems including prior liver transplantation on immunosuppressive therapy was admitted to the hospital 01/09/2018 following a fall. The patient had left hip fracture and gram-negative septicemia and is presently lethargic and encephalopathic unable to take his medications or any other intake spontaneously. Multiple attempts were made earlier to place an NG tube to administer his medications but the patient was fighting and all attempts were unsuccessful. I was asked to see him to consider placement of an NG tube endoscopically after sedation. Other details are summarized in the history and physical and dictated consultations and progress notes. Procedure: With the patient in the supine position and after having obtained consent from his family, and after having explained the procedure including its indications and possible complications and alternatives, I started by attempting to pass the NG tube was the patient was deeply sedated. I used an 18 [place] NG tube and I was able to pass it without difficulty through his the right nares down the esophagus into the stomach. I did use the upper endoscope , once the tube was placed, to inspect the hypopharynx to be certain that the tube was not inadvertently passed into his trachea. We also confirm the correct placement of the tube by pushing a into the stomach and by suctioning stomach contents. The patient tolerated the procedure well. Plan: The family were reassured. The tube can now be used to administer medications and possibly feeding for the time being.
[2018-01-17] MEDS: NITROGLYCERIN OINT 1 INCH/GM PACKET TOPICAL SCH ×4 (11:45→23:51)
[2018-01-17] MEDS: hydrALAZINE HCL 20 MG/ML 1 ML VIAL IVP SCH ×4 (11:52→23:55)
[2018-01-17] MEDS ORDERED: NITROGLYCERIN OINT 1 INCH/GM PACKET TOPICAL SCH (12:00)
--- NOTE | 2018-01-17 12:59 | P.PN ---
Subjective Progress Note Date: 01/17/18 Principal diagnosis: Altered mental status This is 67-year-old male continuing to be evaluated by the neurology service. He continues to have some significant multifactorial encephalopathy from his infectious and metabolic abnormalities. He had worsened over the previous couple days. He started to have some nuchal rigidity and posturing. A lumbar puncture was done to rule out meningitis. No results are yet available. Infectious disease is following. No seizures have been reported in the last 24 hours. At the time of my exam he is still quite obtunded. An NG tube has been placed. Objective - Vital Signs Vital signs: Vital Signs Temp 97.7 F 01/17/18 12:00 Pulse 85 01/17/18 12:34 Resp 14 01/17/18 12:34 BP 200/92 01/17/18 12:34 Pulse Ox 99 01/17/18 12:34 Intake & Output 01/16/18 01/17/18 01/17/18 18:59 06:59 18:59 Intake Total 650 250 200 Balance 650 250 200 Weight 87.5 kg 87.5 kg Intake: IV 550 250 200 Lactated Ringers 1,000 ml 450 150 @ 50 mls/hr IV .Q20H [facility] Rx#:[id number] levETIRAcetam IV 750 mg 100 100 In Sodium Chloride 0.9% 100 ml @ 400 mls/hr IVPB Q12HR [facility] Rx#:[id number] Intake, IV Titration 100 Amount Cefepime 2 gm In Sodium 100 Chloride 0.9% 50 ml @ 100 mls/hr IVPB Q12H [facility] Rx# :[id number] Oral 0 Other: Voiding Method Diaper Diaper Diaper # Voids 3 1 1 - Constitutional General appearance: Present: average body habitus. Absent: cooperative - EENT Eyes: Present: PERRLA. Absent: abnormal pupil, ptosis ENT: Present: hearing grossly normal - Neck Neck: Present: rigidity - Respiratory Respiratory: negative: prolonged expiration, prolonged inspiration - Cardiovascular Rhythm: regular - Gastrointestinal General gastrointestinal: Absent: distended, tenderness - Neurologic Neurologic Comment(s): The patient remains lethargic. He will answer yes or no questions but only sometimes appropriately. When asked to night assistant with his right hand he simply says I can't. He has some posturing with some increased rigidity. He responds to light touch and painful stimuli. He has spontaneous movement of his right side but not on the left. There is no facial asymmetry. - Labs CBC & Chem 7: 01/17/18 05:40 01/17/18 05:40 Labs: Abnormal Lab Results - Last 24 Hours (Table) 01/17/18 01/17/18 Range/Units 05:40 05:40 WBC 2.7 L (3.8-10.6) k/uL RBC 3.74 L (4.30-5.90) m/uL Hgb 11.3 L (13.0-17.5) gm/dL Hct 34.8 L (39.0-53.0) % Lymphocytes # 0.5 L (1.0-4.8) k/uL Chloride 113 H (98-107) mmol/L Carbon Dioxide 16 L (22-30) mmol/L BUN 31 H (9-20) mg/dL Creatinine 2.03 H (0.66-1.25) mg/dL Glucose 115 H (74-99) mg/dL Total Protein 5.6 L (6.3-8.2) g/dL Albumin 2.7 L (3.5-5.0) g/dL Assessment and Plan (1) Altered mental status Current Visit: Yes Status: Acute Code(s): R41.82 - ALTERED MENTAL STATUS, UNSPECIFIED SNOMED Code(s): 142587016 (2) Seizures Current Visit: Yes Status: Chronic Code(s): R56.9 - UNSPECIFIED CONVULSIONS SNOMED Code(s): 90393654 (3) Gram-negative infection Current Visit: Yes Status: Acute Code(s): A49.9 - BACTERIAL INFECTION, UNSPECIFIED SNOMED Code(s): 328024353 (4) Acute encephalopathy Current Visit: No Status: Acute Code(s): G93.40 - ENCEPHALOPATHY, UNSPECIFIED SNOMED Code(s): 90511427 (5) Acute kidney injury Current Visit: No Status: Acute Code(s): N17.9 - ACUTE KIDNEY FAILURE, UNSPECIFIED SNOMED Code(s): 69802068 (6) Liver transplant recipient Current Visit: No Status: Chronic Code(s): Z94.4 - LIVER TRANSPLANT STATUS SNOMED Code(s): 069746130 Plan: As stated previously his exam and worsening symptoms were concerning for meningitis. Lumbar puncture has been performed and we are waiting CSF studies. Infectious disease is on board. He will continue IV Keppra as ordered. Continue neuro checks. We will continue to follow. I have performed a history and physical on the above patient. I have reviewed the above note, and agree.
[2018-01-17] MEDS: LABETALOL 5 MG/ML VIAL MDV IVP PRN (14:48)
[2018-01-17 16:05] LABS: HCV Quant Log 5.74 (<1.08)
--- NOTE | 2018-01-17 17:49 | P.PN ---
Subjective Progress Note Date: 01/17/18 Patient is altered cognition and mentation continues, not responding to questions appropriately, yells "my eye" with posturing on examination. Blood pressures continue to be elevated overnight Objective - Vital Signs Vital signs: Vital Signs Temp 97.7 F 01/17/18 12:00 Pulse 85 01/17/18 12:34 Resp 14 01/17/18 12:34 BP 200/92 01/17/18 12:34 Pulse Ox 99 01/17/18 12:34 Intake & Output 01/16/18 01/17/18 01/17/18 18:59 06:59 18:59 Intake Total 650 250 200 Balance 650 250 200 Weight 87.5 kg 87.5 kg Intake: IV 550 250 200 Lactated Ringers 1,000 ml 450 150 @ 50 mls/hr IV .Q20H [facility] Rx#:[id number] levETIRAcetam IV 750 mg 100 100 In Sodium Chloride 0.9% 100 ml @ 400 mls/hr IVPB Q12HR [facility] Rx#:[id number] Intake, IV Titration 100 Amount Cefepime 2 gm In Sodium 100 Chloride 0.9% 50 ml @ 100 mls/hr IVPB Q12H [facility] Rx# :[id number] Oral 0 Other: Voiding Method Diaper Diaper Diaper # Voids 3 1 1 - Exam Constitutional: No acute distress, conversant, pleasant Eyes: Anicteric sclerae, moist conjunctiva, no lid-lag, PERRLA ENMT: NC/AT,Oropharynx clear, no erythema, exudates Neck:Supple, FROM, no masses, or JVD, No carotid bruits; No thyromegaly Lungs: Clear to auscultation, Clear to percussion, Normal respiratory effort, no accessory muscle use Cardiovascular: Heart regular in rate and rhythm, No murmurs, gallops, or rubs no peripheral edema Abdominal: Soft Nontender, nom distended, no guarding, no rebound or rigidity, Normoactive bowel sounds No hepatomegaly, No splenomegaly, No palpable mass No abdominal wall hernia noted Skin: Normal temperature, tone, texture, turgor, No induration No subcutaneous nodules, No rash, lesions, No ulcers Extremities:No digital cyanosis No clubbing, Pedal pulses intact and symmetrical Radial pulses intact and symmetrical Normal gait and station, No calf tenderness Psychiatric: Disoriented, not answering appropriately to questions, Neuro: Awake, posturing, withdraws from painful stimuli - Labs CBC & Chem 7: 01/17/18 05:40 01/17/18 05:40 Labs: Abnormal Lab Results - Last 24 Hours (Table) 01/17/18 01/17/18 Range/Units 05:40 05:40 WBC 2.7 L (3.8-10.6) k/uL RBC 3.74 L (4.30-5.90) m/uL Hgb 11.3 L (13.0-17.5) gm/dL Hct 34.8 L (39.0-53.0) % Lymphocytes # 0.5 L (1.0-4.8) k/uL Chloride 113 H (98-107) mmol/L Carbon Dioxide 16 L (22-30) mmol/L BUN 31 H (9-20) mg/dL Creatinine 2.03 H (0.66-1.25) mg/dL Glucose 115 H (74-99) mg/dL Total Protein 5.6 L (6.3-8.2) g/dL Albumin 2.7 L (3.5-5.0) g/dL Assessment and Plan Plan: #Acute encephalopathy: Likely hypoactive delirium, subtle seizures in the differential. R/O stroke versus hypertensive encephalopathy Head CT reviewed, no acute process EEG done, reviewed LP performed yesterday results pending Holding by mouth meds as he is not able to swallow NG inserted today by Dr. Erazo due to medical necessity Hypertensive urgency Echocardiogram checked, within normal limits. 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 Has significant proteinuria in the urine. Continue IV fluid hydration, initiated on bicarb drip today Follow up creatinine in a.m. Nephrology is following, considering kidney biopsy as an outpatient Avoid nephrotoxic meds Continue to monitor urine output # enterobacter cloace from the wound cultures Antibiotics according to ID, currently on cefepime Left hip erythema and blistering #Chronic left intertrochanteric fracture Orthopedic's consult--no surgical intervention needed now, follow-up at [facility] orthopedic department Pain control #Chronic hepatitis C untreated, history of liver transplant on immunosuppressants Cyclosporine level checked--within therapeutic range Unable to resume CellCept and cyclosporine via NG tube inserted. #History of seizures, most recent breakthrough seizure was over 5 months ago Continue with Keppra Seizure precautions #Diet as tolerated #Tobacco smoking abuse Patient counseled to quit smoking Nicotine replacement therapy offered #History of CVA Continue with aspirin and statin #Gen. weakness PT Disposition: * We'll attempt to get patient blood pressure under better control, patient still pretty encephalopathic at present * Initiated soft restraints to prevent the patient from pulling his NG tube * Discussed with the patient's grandson Reji next of kin the ongoing plan of care for this patient
[2018-01-17] MEDS: DEXTROSE 5% IN WATER 1,000 ML with SODIUM BICARB (1 MEQ/ML) 150 ML IV SCH (20:42)
[2018-01-18] MEDS: hydrALAZINE HCL 20 MG/ML 1 ML VIAL IVP SCH ×3 (04:01→12:00)
[2018-01-18] MEDS: DEXTROSE 5% IN WATER 1,000 ML with SODIUM BICARB (1 MEQ/ML) 150 ML IV SCH (04:57)
[2018-01-18] MEDS: CEFEPIME 2 GM in SODIUM CHLORIDE 0.9% 50 ML IVPB SCH ×2 (06:06→17:47)
[2018-01-18] MEDS: NITROGLYCERIN OINT 1 INCH/GM PACKET TOPICAL SCH ×3 (06:07→17:50)
[2018-01-18 06:37] LABS: Calcium 8.4 mg/dL (8.4-10.2); Potassium 4.7 mmol/L (3.5-5.1)
--- NOTE | 2018-01-18 07:17 | P.PN ---
Subjective Patient is seen in follow-up for acute kidney injury. Renal function is improved today with creatinine at 1.8. Patient is still confused. Patient has history of liver transplant. He had lumbar puncture on January 16. He is now on tube feeds. Blood pressures still running high. Vital signs are stable. General: Patient does not respond to verbal commands. HEENT: Head exam is unremarkable. Neck is without jugular venous distension. LUNGS: Lungs are clear to auscultation and percussion. Breath sounds decreased. HEART: Rate and Rhythm are regular. First and second heart sounds normal. No murmurs, rubs or gallops. ABDOMEN: Abdominal exam reveals normal bowel sounds. Non-tender and non- distended. No evidence of peritonitis. EXTREMITITES: No clubbing, cyanosis, or edema. Objective - Vital Signs Vital signs: Vital Signs Temp 98.0 F 01/18/18 04:00 Pulse 83 01/18/18 04:56 Resp 18 01/18/18 04:00 BP 173/79 01/18/18 04:56 Pulse Ox 99 01/18/18 04:00 Intake & Output 01/17/18 01/18/18 01/18/18 18:59 06:59 18:59 Intake Total 200 11 Balance 200 11 Weight 87.5 kg 90.5 kg Intake: IV 200 10 Invasive Line 5 10 Tube Feeding 1 Other: Voiding Method Diaper Diaper # Voids 1 0 - Labs CBC & Chem 7: 01/17/18 05:40 01/18/18 05:29 Labs: Abnormal Lab Results - Last 24 Hours (Table) 01/12/18 01/18/18 Range/Units 05:50 05:29 BUN 41 H (9-20) mg/dL Creatinine 1.80 H (0.66-1.25) mg/dL Glucose 180 H (74-99) mg/dL HCV RNA Qual (PCR) DETECTED H (Not detected) Hepatitis C RNA Quant 545,989 H (<12) IU/mL HCV RNA PCR log telescope maintenance/ml 5.74 H (<1.08) Hepatitis C Genotype 1a H Microbiology - Last 24 Hours (Table) 01/16/18 15:40 CSF Gram Stain - Preliminary Cerebral Spinal Fluid CSF Culture - Preliminary Assessment and Plan Plan: Assessment: 1. Acute kidney injury secondary to ATN. Also concern for GN. Renal function improved with creatinine at 1.8 today. Patient is noted to be positive for hepatitis C and has nephrotic range proteinuria. Rest of the serologies were negative. 2. Chronic kidney disease stage III secondary to long-term calcineurin inhibitor use. Baseline creatinine has been in the range of 1.2-1.8. 3. Hypertension with chronic kidney disease. Blood pressures running high - centrally mediated. 4. Encephalopathy being followed by neurology. Status post lumbar puncture on January 16. Maintain on IV Keppra. 5. Metabolic acidosis secondary to acute kidney injury. Improved. 6. Underlying hepatitis C. 7. Status post liver transplant. Plan: Discontinue bicarbonate drip. Start normal saline at 50 mL an hour for maintenance fluids. Continue with tube feeds. Maintain IV antihypertensives. Oral antihypertensives will also be resumed today via NG tube. Follow-up cultures. Repeat electrolytes in the morning. Since the antirejection medications cannot be crushed and be given via NG tube, can continue Solu-Medrol for now. He is noted to have nephrotic range proteinuria and will need a kidney biopsy down the road.
[2018-01-18] MEDS: SODIUM CHLORIDE 0.9% 1,000 ML IV SCH (07:53)
[2018-01-18] MEDS: HEPARIN SODIUM,PORCINE 5,000 UNIT/ML 1 ML VIAL SQ SCH ×2 (07:54→17:46)
[2018-01-18] MEDS: ASPIRIN 325 MG TAB PO SCH (07:55)
[2018-01-18] MEDS: CHOLECALCIFEROL 1,000 UNIT TAB PO SCH (07:55)
[2018-01-18] MEDS: amLODIPine 5 MG TAB PO SCH ×2 (07:55→20:23)
[2018-01-18] MEDS: FERROUS SULFATE 325 MG TAB PO SCH (07:57)
[2018-01-18] MEDS: levETIRAcetam IV 750 MG in SODIUM CHLORIDE 0.9% 100 ML IVPB SCH ×2 (07:57→20:40)
[2018-01-18] MEDS: methylPREDNISolone SOD SUCCI 40 MG/ML 1 ML VIAL IV SCH ×2 (07:57→20:21)
[2018-01-18] MEDS: NICOTINE 21MG/24HR PATCH TRANSDERM SCH (08:15)
[2018-01-18] MEDS: METOPROLOL TARTRATE 50 MG TAB PO SCH ×2 (08:15→20:22)
[2018-01-18] MEDS: SODIUM BICARBONATE TAB 650 MG TAB PO SCH ×2 (08:15→20:21)
[2018-01-18] MEDS: MYCOPHENOLATE MOFETIL 500 MG TAB PO SCH ×2 (10:05→20:22)
[2018-01-18] MEDS: MORPHINE SULFATE 2 MG/ML SYRINGE IVP PRN ×3 (10:08→22:40)
--- NOTE | 2018-01-18 12:35 | P.PN ---
Subjective Progress Note Date: 01/18/18 Patient is altered cognition and mentation continues, but seems to be smudges only improved today. Nursing reports that the patient is answering to his name Blood pressures continue to be elevated overnight Objective - Vital Signs Vital signs: Vital Signs Temp 97.8 F 01/18/18 07:48 Pulse 82 01/18/18 08:00 Resp 14 01/18/18 08:00 BP 188/88 01/18/18 07:48 Pulse Ox 98 01/18/18 07:48 Intake & Output 01/17/18 01/18/18 01/18/18 18:59 06:59 18:59 Intake Total 200 11 Balance 200 11 Weight 87.5 kg 90.5 kg 90.5 kg Intake: IV 200 10 Invasive Line 5 10 Tube Feeding 1 Other: Voiding Method Diaper Diaper Diaper # Voids 1 0 - Exam Constitutional: No acute distress, conversant, pleasant Eyes: Anicteric sclerae, moist conjunctiva, no lid-lag, PERRLA ENMT: NC/AT,Oropharynx clear, no erythema, exudates Neck:Supple, FROM, no masses, or JVD, No carotid bruits; No thyromegaly Lungs: Clear to auscultation, Clear to percussion, Normal respiratory effort, no accessory muscle use Cardiovascular: Heart regular in rate and rhythm, No murmurs, gallops, or rubs no peripheral edema Abdominal: Soft Nontender, nom distended, no guarding, no rebound or rigidity, Normoactive bowel sounds No hepatomegaly, No splenomegaly, No palpable mass No abdominal wall hernia noted Skin: Normal temperature, tone, texture, turgor, No induration No subcutaneous nodules, No rash, lesions, No ulcers Extremities:No digital cyanosis No clubbing, Pedal pulses intact and symmetrical Radial pulses intact and symmetrical Normal gait and station, No calf tenderness Psychiatric: Disoriented, not answering appropriately to questions, Neuro: Awake, posturing, withdraws from painful stimuli, no purposeful movements - Labs CBC & Chem 7: 01/17/18 05:40 01/18/18 05:29 Labs: Abnormal Lab Results - Last 24 Hours (Table) 01/12/18 01/18/18 Range/Units 05:50 05:29 BUN 41 H (9-20) mg/dL Creatinine 1.80 H (0.66-1.25) mg/dL Glucose 180 H (74-99) mg/dL HCV RNA Qual (PCR) DETECTED H (Not detected) Hepatitis C RNA Quant 545,989 H (<12) IU/mL HCV RNA PCR log undercover cop/ml 5.74 H (<1.08) Hepatitis C Genotype 1a H Microbiology - Last 24 Hours (Table) 01/16/18 15:40 CSF Gram Stain - Preliminary Cerebral Spinal Fluid CSF Culture - Preliminary Assessment and Plan Plan: #Acute encephalopathy: Likely hypoactive delirium, subtle seizures in the differential. R/O stroke versus hypertensive encephalopathy Head CT reviewed, no acute process EEG done, reviewed LP performed yesterday results pending Holding by mouth meds as he is not able to swallow NG inserted today by Dr. Erazo due to medical necessity Hypertensive urgency Echocardiogram checked, within normal limits. 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 Has significant proteinuria in the urine. Continue IV fluid hydration, initiated on bicarb drip today Follow up creatinine in a.m. Nephrology is following, considering kidney biopsy as an outpatient Avoid nephrotoxic meds Continue to monitor urine output # enterobacter cloace from the wound cultures Antibiotics according to ID, currently on cefepime Left hip erythema and blistering #Chronic left intertrochanteric fracture Orthopedic's consult--no surgical intervention needed now, follow-up at [facility] orthopedic department Pain control #Chronic hepatitis C untreated, history of liver transplant on immunosuppressants Cyclosporine level checked--within therapeutic range Unable to resume CellCept and cyclosporine via NG tube inserted. #History of seizures, most recent breakthrough seizure was over 5 months ago Continue with Keppra Seizure precautions #Diet as tolerated #Tobacco smoking abuse Patient counseled to quit smoking Nicotine replacement therapy offered #History of CVA Continue with aspirin and statin #Gen. weakness PT Disposition: * We'll attempt to get patient blood pressure under better control, patient still pretty encephalopathic at present * Initiated soft restraints to prevent the patient from pulling his NG tube * Discussed with the patient's grandson Reji next of kin the ongoing plan of care for this patient
--- NOTE | 2018-01-18 13:54 | P.PN ---
Subjective Progress Note Date: 01/18/18 Principal diagnosis: abn trop This is a 67-year-old gentleman with history of hepatitis C status post liver transplant, hypertension, renal insufficiency, seizures, who presented to the hospital after experiencing a fall at home. He presented with complaints of left hip pain. Cardiology consultation was initially requested because of elevated troponins. Patient denied having any chest discomfort. He was noted to have some leg edema, left leg greater than the right side which is the area he had the injury. Patient was seen in consultation by Dr. Darnell, an echocardiogram with Doppler study was performed which revealed a normal ejection fraction of 55-60%. Venous duplex study was performed of the left lower extremity which was negative for DVT. Blood pressure 148/60 with a heart rate in the 60s. Sodium 137, potassium 4.1, BUN 29, creatinine 2.4. Troponin 0.04, 0.04, 0.04. Patient was seen and examined this morning, continues to be quite weak, mild left hip pain discomfort persists. 01/18/2018 Cardiology was requested to see the patient again today in follow-up because of significantly elevated blood pressures. Since we were following the patient, patient has significant altered cognition and mental status changes. His blood pressure this morning 188/88 with a heart rate in the 80s, at noon 185/83. Patient does have an NG tube in place, not taking any oral medications unless given through the NG. We will start the patient on hydralazine 100 mg every 6 hours through the NG tube. With blood pressure remains high we will consider the addition of Cardura. Objective - Vital Signs Vital signs: Vital Signs Temp 97.6 F 01/18/18 12:00 Pulse 63 01/18/18 12:00 Resp 16 01/18/18 12:00 BP 185/83 01/18/18 12:00 Pulse Ox 99 01/18/18 12:00 Intake & Output 01/17/18 01/18/18 01/18/18 18:59 06:59 18:59 Intake Total 200 11 Balance 200 11 Weight 87.5 kg 90.5 kg 90.5 kg Intake: IV 200 10 Invasive Line 5 10 Tube Feeding 1 Other: Voiding Method Diaper Diaper Diaper # Voids 1 0 - Exam PHYSICAL EXAMINATION: GENERAL: 67-year-old gentleman appears frail and weak, in no acute distress at the time of my examination HEENT: Head is atraumatic, normocephalic. Pupils equal, round. Sclera anicteric. Conjunctiva are clear. Mucous membranes of the mouth are moist. Neck is supple. There is no elevated jugular venous pressure.] bruit is heard. HEART EXAMINATION: Heart S1, S2 normal. No murmur or gallop heard. CHEST EXAMINATION: Lungs are clear to auscultation and precussion. No chest wall tenderness is noted on palpation or with deep breathing. ABDOMEN: Soft, nontender. Bowel sounds are heard. No organomegaly noted. EXTREMITIES: 2+ peripheral pulses with evidence of peripheral edema , left leg greater than right , no calf tenderness noted]. NEUROLOGIC patient is awake, posturing, withdraws from painful stimuli - Labs CBC & Chem 7: 01/17/18 05:40 01/18/18 05:29 Labs: Abnormal Lab Results - Last 24 Hours (Table) 01/12/18 01/18/18 Range/Units 05:50 05:29 BUN 41 H (9-20) mg/dL Creatinine 1.80 H (0.66-1.25) mg/dL Glucose 180 H (74-99) mg/dL HCV RNA Qual (PCR) DETECTED H (Not detected) Hepatitis C RNA Quant 545,989 H (<12) IU/mL HCV RNA PCR log photostatic copy maker/ml 5.74 H (<1.08) Hepatitis C Genotype 1a H Microbiology - Last 24 Hours (Table) 01/16/18 15:40 CSF Gram Stain - Preliminary Cerebral Spinal Fluid CSF Culture - Preliminary Assessment and Plan Plan: Assessment and plan #1 abnormal troponin, likely secondary to renal failure. Echocardiogram with Doppler study revealed a normal left ventricular systolic function. #2 fall with left hip pain #3 hepatitis C with cirrhosis, status post liver transplant #4 Left leg edema, DVT ruled out by venous duplex study #5 accelerated hypertension Plan From cardiology's perspective, we will discontinue the IV hydralazine and start the patient on hydralazine 100 mg by mouth every 6 hours to be given via NG tube. If this is not effective for optimal blood pressure control, we will consider the addition of Cardura. DNP note has been reviewed, I agree with a documented findings and plan of care. Patient was seen and examined.
[2018-01-18] MEDS: hydrALAZINE HCL 50 MG TAB PO SCH ×3 (13:57→22:13)
--- NOTE | 2018-01-18 15:26 | XR ---
EXAMINATION TYPE: XR chest 1V portable DATE OF EXAM: 01/18/2018 COMPARISON: 01/09/2018 HISTORY: NG tube placement TECHNIQUE: Single frontal view of the chest is obtained. FINDINGS: NG tube is seen with the tip near the level of the gastric fundus. The diffuse prominence of the interstitium noted with subsegmental changes at both lung bases. Chronic rib deformity seen. N o pneumothorax. Diffuse osteopenia noted. Hypertrophic and degenerative changes spine with curvature. Atherosclerotic change aorta. IMPRESSION: 1. NG tube appears with the tip likely overlying the gastric fundus. 2. Subsegmental atelectasis favored over infiltrate correlate clinically. Prominence of the interstit ium is nonspecific may be related to poor inspiration rather than interstitial pneumonitis or venous congestion. Correlate clinically.
--- NOTE | 2018-01-18 16:24 | P.PN ---
Subjective Progress Note Date: 01/18/18 Principal diagnosis: Altered mental status This is 67-year-old male continuing to be evaluated by the neurology service. He continues to have some significant multifactorial encephalopathy from his infectious and metabolic abnormalities. He had worsened over the previous couple days. He started to have some nuchal rigidity and posturing. A lumbar puncture was done to rule out meningitis. No results are yet available. Infectious disease is following. No seizures have been reported in the last 24 hours. At the time of my exam he is still quite obtunded. An NG tube has been placed. 01/18/2018 update the patient continues to be significantly altered. Lumbar puncture was done and his CSF studies showed no sign of infection. A feeding tube has been placed. Nursing staff indicate the he has slightly more awake bowl. However, he has not conversant and rarely follows commands. His blood pressure continues to be significantly elevated and cardiology is working on this. Infectious disease continues to follow. Recall that his EEG did show moderate encephalopathy and CT of the brain showed some old infarcts. I will be updating an MRI of the brain. Objective - Vital Signs Vital signs: Vital Signs Temp 97.6 F 01/18/18 12:00 Pulse 63 01/18/18 12:00 Resp 16 01/18/18 12:00 BP 185/83 01/18/18 12:00 Pulse Ox 99 01/18/18 12:00 Intake & Output 01/17/18 01/18/18 01/18/18 18:59 06:59 18:59 Intake Total 200 11 150 Balance 200 11 150 Weight 87.5 kg 90.5 kg 90.5 kg Intake: IV 200 10 Invasive Line 5 10 Tube Feeding 1 150 Other: Voiding Method Diaper Diaper Diaper # Voids 1 0 1 # Bowel Movements 0 - Constitutional General appearance: Present: disheveled. Absent: cooperative - EENT Eyes: Present: PERRLA. Absent: abnormal pupil, ptosis ENT: Present: hearing grossly normal - Neck Details: Mild neck stiffness Neck: Present: normal ROM, rigidity - Respiratory Respiratory: negative: prolonged expiration, prolonged inspiration - Cardiovascular Rhythm: regular - Gastrointestinal General gastrointestinal: Absent: distended - Neurologic Neurologic Comment(s): Patient continues to be quite lethargic. He will open his eyes when his name is called. He answers some yes no questions. He will return clerk with his right hand but minimally with his left. Spontaneous movement of right upper and lower extremities is seen. Still no movement seen with his left side. He does respond to light touch and to painful stimuli in upper and lower extremities on the right and mildly so on the left. - Labs CBC & Chem 7: 01/17/18 05:40 01/18/18 05:29 Labs: Abnormal Lab Results - Last 24 Hours (Table) 01/18/18 Range/Units 05:29 BUN 41 H (9-20) mg/dL Creatinine 1.80 H (0.66-1.25) mg/dL Glucose 180 H (74-99) mg/dL Microbiology - Last 24 Hours (Table) 01/16/18 15:40 CSF Gram Stain - Preliminary Cerebral Spinal Fluid CSF Culture - Preliminary Assessment and Plan (1) Altered mental status Current Visit: Yes Status: Acute Code(s): R41.82 - ALTERED MENTAL STATUS, UNSPECIFIED SNOMED Code(s): 078074986 (2) Seizures Current Visit: Yes Status: Chronic Code(s): R56.9 - UNSPECIFIED CONVULSIONS SNOMED Code(s): 65855095 (3) Gram-negative infection Current Visit: Yes Status: Acute Code(s): A49.9 - BACTERIAL INFECTION, UNSPECIFIED SNOMED Code(s): 128740379 (4) Acute encephalopathy Current Visit: No Status: Acute Code(s): G93.40 - ENCEPHALOPATHY, UNSPECIFIED SNOMED Code(s): 91967728 (5) Acute kidney injury Current Visit: No Status: Acute Code(s): N17.9 - ACUTE KIDNEY FAILURE, UNSPECIFIED SNOMED Code(s): 15763183 (6) Liver transplant recipient Current Visit: No Status: Chronic Code(s): Z94.4 - LIVER TRANSPLANT STATUS SNOMED Code(s): 013057386 Plan: As stated previously his exam and worsening symptoms were concerning for meningitis. Lumbar puncture has been performed and I reviewed the negative CSF studies. Infectious disease is on board. He will continue IV Keppra as ordered. I did notice on a previous admission his Keppra level was elevated. I will check this again. Continue neuro checks. I have ordered an MRI of the brain due to his persistent altered mental status. However, this is most likely due to multifactorial encephalopathy. Continue following with multiple subspecialties. We will continue to follow. I have performed a history and physical on the above patient. I have reviewed the above note, and agree.
[2018-01-18 20:55] LABS: Glucose,Whole Blood 156 mg/dL (75-99)
[2018-01-18] MEDS: INSULIN ASPART 100 UNIT/ML 1 ML 10 ML VIAL SQ SCH (22:12)
[2018-01-19] MEDS: HEPARIN SODIUM,PORCINE 5,000 UNIT/ML 1 ML VIAL SQ SCH ×4 (00:06→22:38)
[2018-01-19] MEDS: NITROGLYCERIN OINT 1 INCH/GM PACKET TOPICAL SCH ×5 (00:07→22:39)
[2018-01-19] MEDS: LABETALOL 5 MG/ML VIAL MDV IVP PRN (03:57)
[2018-01-19] MEDS: SODIUM CHLORIDE 0.9% 1,000 ML IV SCH ×2 (04:58→22:38)
[2018-01-19] MEDS: CEFEPIME 2 GM in SODIUM CHLORIDE 0.9% 50 ML IVPB SCH ×2 (06:06→17:09)
[2018-01-19 06:26] LABS: Glucose,Whole Blood 151 mg/dL (75-99)
[2018-01-19] MEDS: INSULIN ASPART 100 UNIT/ML 1 ML 10 ML VIAL SQ SCH ×4 (06:43→21:23)
[2018-01-19 07:16] LABS: Potassium 4.1 mmol/L (3.5-5.1)
[2018-01-19 07:17] LABS: Calcium 8.2 mg/dL (8.4-10.2); Magnesium 2.2 mg/dL (1.6-2.3)
[2018-01-19] MEDS: amLODIPine 5 MG TAB PO SCH ×2 (08:02→21:01)
[2018-01-19] MEDS: ASPIRIN 325 MG TAB PO SCH (08:02)
[2018-01-19] MEDS: CHOLECALCIFEROL 1,000 UNIT TAB PO SCH (08:03)
[2018-01-19] MEDS: hydrALAZINE HCL 50 MG TAB PO SCH ×4 (08:04→22:37)
[2018-01-19] MEDS: FERROUS SULFATE 325 MG TAB PO SCH (08:04)
[2018-01-19] MEDS: methylPREDNISolone SOD SUCCI 40 MG/ML 1 ML VIAL IV SCH ×2 (08:05→21:03)
[2018-01-19] MEDS: METOPROLOL TARTRATE 50 MG TAB PO SCH ×2 (08:05→21:00)
[2018-01-19] MEDS: NICOTINE 21MG/24HR PATCH TRANSDERM SCH (08:06)
[2018-01-19] MEDS: SODIUM BICARBONATE TAB 650 MG TAB PO SCH ×2 (08:06→21:04)
[2018-01-19] MEDS: HYDROcodone/APAP 5-325MG 1 EACH TAB PO PRN ×2 (08:19→14:00)
[2018-01-19] MEDS: levETIRAcetam IV 750 MG in SODIUM CHLORIDE 0.9% 100 ML IVPB SCH ×2 (09:28→21:13)
--- NOTE | 2018-01-19 09:29 | P.PN ---
Subjective Progress Note Date: 01/19/18 Patient is altered cognition and mentation continues, able to answer questions intermittently and seems to be improving. Nursing reports that the patient is answering to his name, patient told me was at [facility] Blood pressures continue to be elevated but is much improved overnight and this am. Objective - Vital Signs Vital signs: Vital Signs Temp 96.9 F L 01/19/18 08:00 Pulse 60 01/19/18 08:00 Resp 16 01/19/18 08:00 BP 166/78 01/19/18 08:00 Pulse Ox 97 01/19/18 08:00 Intake & Output 01/18/18 01/19/18 01/19/18 18:59 06:59 18:59 Intake Total 270 280 200 Balance 270 280 200 Weight 90.5 kg 91.5 kg Intake: Tube Feeding 270 280 200 Other: Voiding Method Diaper Diaper # Voids 1 # Bowel Movements 0 - Exam Constitutional: No acute distress, conversant, pleasant Eyes: Anicteric sclerae, moist conjunctiva, no lid-lag, PERRLA ENMT: NC/AT,Oropharynx clear, no erythema, exudates Neck:Supple, FROM, no masses, or JVD, No carotid bruits; No thyromegaly Lungs: Clear to auscultation, Clear to percussion, Normal respiratory effort, no accessory muscle use Cardiovascular: Heart regular in rate and rhythm, No murmurs, gallops, or rubs no peripheral edema Abdominal: Soft Nontender, nom distended, no guarding, no rebound or rigidity, Normoactive bowel sounds No hepatomegaly, No splenomegaly, No palpable mass No abdominal wall hernia noted Skin: Normal temperature, tone, texture, turgor, No induration No subcutaneous nodules, No rash, lesions, No ulcers Extremities:No digital cyanosis No clubbing, Pedal pulses intact and symmetrical Radial pulses intact and symmetrical Normal gait and station, No calf tenderness Psychiatric: Intermittently oriented to self and place Neuro: Somnolent but arousable, still confused at times intermittently oriented to self and place. Neurological status improving today - Labs CBC & Chem 7: 01/17/18 05:40 01/19/18 06:39 Labs: Abnormal Lab Results - Last 24 Hours (Table) 01/15/18 01/18/18 01/19/18 Range/Units 06:01 20:52 06:23 BUN (9-20) mg/dL Creatinine (0.66-1.25) mg/dL Glucose (74-99) mg/dL POC Glucose (mg/dL) 156 H 151 H (75-99) mg/dL Calcium (8.4-10.2) mg/dL Cyclosporine 69 L (100-400) ng/mL 01/19/18 Range/Units 06:39 BUN 52 H (9-20) mg/dL Creatinine 2.01 H (0.66-1.25) mg/dL Glucose 153 H (74-99) mg/dL POC Glucose (mg/dL) (75-99) mg/dL Calcium 8.2 L (8.4-10.2) mg/dL Cyclosporine (100-400) ng/mL Microbiology - Last 24 Hours (Table) 01/16/18 15:40 CSF Gram Stain - Preliminary Cerebral Spinal Fluid CSF Culture - Preliminary Assessment and Plan Plan: #Acute encephalopathy: Likely hypoactive delirium, subtle seizures in the differential. R/O stroke versus hypertensive encephalopathy Head CT reviewed, no acute process, MRI ordered and pending EEG done, reviewed LP performed results not concerning for meningitis Holding by mouth meds as he is not able to swallow NG inserted today by Dr. Erazo due to medical necessity Hypertensive urgency Echocardiogram checked, within normal limits. 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 Has significant proteinuria in the urine. Continue IV fluid hydration, initiated on bicarb drip today Follow up creatinine in a.m. Nephrology is following, considering kidney biopsy as an outpatient Avoid nephrotoxic meds Continue to monitor urine output # enterobacter cloace from the wound cultures Antibiotics according to ID, currently on cefepime Left hip erythema and blistering #Chronic left intertrochanteric fracture Orthopedic's consult--no surgical intervention needed now, follow-up at [facility] orthopedic department Pain control #Chronic hepatitis C untreated, history of liver transplant on immunosuppressants Cyclosporine level checked--within therapeutic range Unable to resume CellCept and cyclosporine via NG tube inserted. #History of seizures, most recent breakthrough seizure was over 5 months ago Continue with Keppra Seizure precautions #Diet as tolerated #Tobacco smoking abuse Patient counseled to quit smoking Nicotine replacement therapy offered #History of CVA Continue with aspirin and statin #Gen. weakness PT Disposition: * We'll attempt to get patient blood pressure under better control, patient still pretty encephalopathic at present * Initiated soft restraints to prevent the patient from pulling his NG tube * Discussed with the patient's grandson Reji next of kin the ongoing plan of care for this patient
[2018-01-19] MEDS: MYCOPHENOLATE MOFETIL 500 MG TAB PO SCH ×2 (09:32→21:24)
--- NOTE | 2018-01-19 09:54 | P.PN ---
Subjective Progress Note Date: 01/19/18 Principal diagnosis: This is a 67-year-old patient with liver transplant, hepatitis C, history of left-sided weakness in the past, and history of left hip pain and a left femoral intertrochanteric fracture, status post surgery, seizure disorder. Admitted with frequent falls, weakness high blood pressure. He is currently obtunded, had a lumbar puncture and results are not very indicated of any meningitis. He is on NG feeding. He remains obtunded. He is in restraints. He is being followed up because of acute kidney injury, etiology of which is unclear. His cyclosporine level was somewhat high at 129 on 01/10/2018 but subsequently has come down to 69 on 01/15/2018. In spite of his creatinine remains elevated from his baseline. His baseline creatinine is 1.72 on 2017 and 1.8 on 10/24/2017. It was 1.79 on 12/20/2017. He was admitted with a creatinine of 2.34 which improved to 1.8-1 on 01/14/2018 but then slowly going up again and is up to 2 this morning. Objective - Vital Signs Vital signs: Vital Signs Temp 96.9 F L 01/19/18 08:00 Pulse 60 01/19/18 08:00 Resp 16 01/19/18 08:00 BP 166/78 01/19/18 08:00 Pulse Ox 97 01/19/18 08:00 Intake & Output 01/18/18 01/19/18 01/19/18 18:59 06:59 18:59 Intake Total 270 280 200 Balance 270 280 200 Weight 90.5 kg 91.5 kg Intake: Tube Feeding 270 280 200 Other: Voiding Method Diaper Diaper # Voids 1 # Bowel Movements 0 On examination he remains obtunded he opens eyes but does not respond verbally but does try to follow commands. HEENT exam no JVP neck is supple no facial asymmetry pupils are equal Heart sounds are unremarkable for any murmur rub gallop Lungs are clear to auscultation abdomen is soft nontender no organomegaly ascites masses. Extremity exam was trace edema Neurologically obtunded and drowsy opens eyes on pain and seems to be time to follow some commands. - Labs CBC & Chem 7: 01/17/18 05:40 01/19/18 06:39 Labs: Abnormal Lab Results - Last 24 Hours (Table) 01/15/18 01/18/18 01/19/18 Range/Units 06:01 20:52 06:23 BUN (9-20) mg/dL Creatinine (0.66-1.25) mg/dL Glucose (74-99) mg/dL POC Glucose (mg/dL) 156 H 151 H (75-99) mg/dL Calcium (8.4-10.2) mg/dL Cyclosporine 69 L (100-400) ng/mL 01/19/18 Range/Units 06:39 BUN 52 H (9-20) mg/dL Creatinine 2.01 H (0.66-1.25) mg/dL Glucose 153 H (74-99) mg/dL POC Glucose (mg/dL) (75-99) mg/dL Calcium 8.2 L (8.4-10.2) mg/dL Cyclosporine (100-400) ng/mL Microbiology - Last 24 Hours (Table) 01/16/18 15:40 CSF Gram Stain - Preliminary Cerebral Spinal Fluid CSF Culture - Preliminary Assessment and Plan Assessment: Impression 1. Acute kidney injury secondary to combination of prerenal, cyclosporine. Rule out obstructive etiology 2. Chronic kidney disease with a baseline creatinine of about 1.7. He has nephrotic range proteinuria at 6 g. He has hepatitis C active and might be a membranoproliferative or a membranous or cryoglobulinemia associated with hep C. So far workup is negative for ANCA, JOCELYNE double-stranded DNA and complement levels. 3. Liver transplant. Not sure whether the hep C is a pretransplant conditioning or he acquired later. 4. Hypertension slightly about target. 5. Obtundation, on Keppra. Possible seizures and status. 6. Non-gap acidosis resolved with bicarb 26 currently on sodium bicarb Recommendation. 1. Will check bladder scan. 2. check cyclosporine level 3. Reduce sodium bicarb by mouth to 6 and 50 twice a day.
[2018-01-19 11:31] LABS: Glucose,Whole Blood 143 mg/dL (75-99)
--- NOTE | 2018-01-19 11:57 | P.PN ---
Subjective Progress Note Date: 01/19/18 Principal diagnosis: abn trop This is a 67-year-old gentleman with history of hepatitis C status post liver transplant, hypertension, renal insufficiency, seizures, who presented to the hospital after experiencing a fall at home. He presented with complaints of left hip pain. Cardiology consultation was initially requested because of elevated troponins. Patient denied having any chest discomfort. He was noted to have some leg edema, left leg greater than the right side which is the area he had the injury. Patient was seen in consultation by Dr. Darnell, an echocardiogram with Doppler study was performed which revealed a normal ejection fraction of 55-60%. Venous duplex study was performed of the left lower extremity which was negative for DVT. Blood pressure 148/60 with a heart rate in the 60s. Sodium 137, potassium 4.1, BUN 29, creatinine 2.4. Troponin 0.04, 0.04, 0.04. Patient was seen and examined this morning, continues to be quite weak, mild left hip pain discomfort persists. 01/18/2018 Cardiology was requested to see the patient again today in follow-up because of significantly elevated blood pressures. Since we were following the patient, patient has significant altered cognition and mental status changes. His blood pressure this morning 188/88 with a heart rate in the 80s, at noon 185/83. Patient does have an NG tube in place, not taking any oral medications unless given through the NG. We will start the patient on hydralazine 100 mg every 6 hours through the NG tube. With blood pressure remains high we will consider the addition of Cardura. 01/19/2018 Patient was seen and examined this morning, still quite confused but more aware than yesterday. Blood pressure this morning 156/72 with a heart rate in the 60s , 97% on room air. Sodium 141, potassium 4.1, BUN 52, creatinine 2.0. Objective - Vital Signs Vital signs: Vital Signs Temp 96.9 F L 01/19/18 08:00 Pulse 60 01/19/18 08:00 Resp 16 01/19/18 08:00 BP 166/78 01/19/18 08:00 Pulse Ox 97 01/19/18 08:00 Intake & Output 01/18/18 01/19/18 01/19/18 18:59 06:59 18:59 Intake Total 270 280 200 Output Total 700 Balance 270 280 -500 Weight 90.5 kg 91.5 kg Intake: Tube Feeding 270 280 200 Output: Urine 700 Uretheral (Dodson) 700 Other: Voiding Method Diaper Diaper Diaper # Voids 1 # Bowel Movements 0 - Exam PHYSICAL EXAMINATION: GENERAL: 67-year-old gentleman appears frail and weak, in no acute distress at the time of my examination HEENT: Head is atraumatic, normocephalic. Pupils equal, round. Sclera anicteric. Conjunctiva are clear. Mucous membranes of the mouth are moist. Neck is supple. There is no elevated jugular venous pressure.] bruit is heard. HEART EXAMINATION: Heart S1, S2 normal. No murmur or gallop heard. CHEST EXAMINATION: Lungs are clear to auscultation and precussion. No chest wall tenderness is noted on palpation or with deep breathing. ABDOMEN: Soft, nontender. Bowel sounds are heard. No organomegaly noted. EXTREMITIES: 2+ peripheral pulses with evidence of peripheral edema , left leg greater than right , no calf tenderness noted]. NEUROLOGIC patient is awake, posturing, withdraws from painful stimuli - Labs CBC & Chem 7: 01/17/18 05:40 01/19/18 06:39 Labs: Abnormal Lab Results - Last 24 Hours (Table) 01/15/18 01/18/18 01/19/18 Range/Units 06:01 20:52 06:23 BUN (9-20) mg/dL Creatinine (0.66-1.25) mg/dL Glucose (74-99) mg/dL POC Glucose (mg/dL) 156 H 151 H (75-99) mg/dL Calcium (8.4-10.2) mg/dL Cyclosporine 69 L (100-400) ng/mL 01/19/18 01/19/18 Range/Units 06:39 11:29 BUN 52 H (9-20) mg/dL Creatinine 2.01 H (0.66-1.25) mg/dL Glucose 153 H (74-99) mg/dL POC Glucose (mg/dL) 143 H (75-99) mg/dL Calcium 8.2 L (8.4-10.2) mg/dL Cyclosporine (100-400) ng/mL Microbiology - Last 24 Hours (Table) 01/16/18 15:40 CSF Gram Stain - Preliminary Cerebral Spinal Fluid CSF Culture - Preliminary Assessment and Plan Plan: Assessment and plan #1 abnormal troponin, likely secondary to renal failure. Echocardiogram with Doppler study revealed a normal left ventricular systolic function. #2 fall with left hip pain #3 hepatitis C with cirrhosis, status post liver transplant #4 Left leg edema, DVT ruled out by venous duplex study #5 accelerated hypertension Plan From cardiology's perspective, we will continue this patient on his current medications. We will follow him along with you now on an as-needed basis only, please don't hesitate to call us with any questions at all. DNP note has been reviewed, I agree with a documented findings and plan of care. Patient was seen and examined.
--- NOTE | 2018-01-19 14:05 | P.PN ---
Subjective Progress Note Date: 01/19/18 Principal diagnosis: Altered mental status This is 67-year-old male continuing to be evaluated by the neurology service. He continues to have some significant multifactorial encephalopathy from his infectious and metabolic abnormalities. He had worsened over the previous couple days. He started to have some nuchal rigidity and posturing. A lumbar puncture was done to rule out meningitis. No results are yet available. Infectious disease is following. No seizures have been reported in the last 24 hours. At the time of my exam he is still quite obtunded. An NG tube has been placed. 01/18/2018 update the patient continues to be significantly altered. Lumbar puncture was done and his CSF studies showed no sign of infection. A feeding tube has been placed. Nursing staff indicate the he has slightly more awake. However, he is not conversant and rarely follows commands. His blood pressure continues to be significantly elevated and cardiology is working on this. Infectious disease continues to follow. Recall that his EEG did show moderate encephalopathy and CT of the brain showed some old infarcts. I will be updating an MRI of the brain. 01/19/2018 update. He is on little more awake today and is oriented to person and place but not time. It is still difficult to awaken him and he falls right back to sleep. He is obviously still encephalopathic, and his MRI of the brain has been postponed so they can further investigate the possibility of metal in his body. If MRI cannot be done within the next day or [address] can be done. Otherwise no new neurological symptoms have presented last 24 hours Objective - Vital Signs Vital signs: Vital Signs Temp 97.6 F 01/19/18 11:54 Pulse 56 L 01/19/18 11:57 Resp 18 01/19/18 11:57 BP 160/75 01/19/18 11:54 Pulse Ox 97 01/19/18 08:00 Intake & Output 01/18/18 01/19/18 01/19/18 18:59 06:59 18:59 Intake Total 270 280 400 Output Total 700 Balance 270 280 -300 Weight 90.5 kg 91.5 kg Intake: Tube Feeding 270 280 400 Output: Urine 700 Uretheral (Dodson) 700 Other: Voiding Method Diaper Diaper Diaper Indwelling Catheter # Voids 1 # Bowel Movements 0 - Constitutional General appearance: Present: average body habitus, no acute distress - EENT Eyes: Present: EOMI, PERRLA. Absent: abnormal pupil, ptosis ENT: Present: hearing grossly normal - Neck Neck: Present: normal ROM. Absent: rigidity - Respiratory Respiratory: negative: prolonged expiration, prolonged inspiration - Cardiovascular Rhythm: regular - Gastrointestinal General gastrointestinal: Absent: distended, tenderness - Neurologic Neurologic Comment(s): Patient is a little more awake today. He answers simple questions appropriately. He is oriented to person and place but not time. 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 No tremors or seizure activity is seen. There is no facial asymmetry. - Labs CBC & Chem 7: 01/17/18 05:40 01/19/18 06:39 Labs: Abnormal Lab Results - Last 24 Hours (Table) 01/15/18 01/18/18 01/19/18 Range/Units 06:01 20:52 06:23 BUN (9-20) mg/dL Creatinine (0.66-1.25) mg/dL Glucose (74-99) mg/dL POC Glucose (mg/dL) 156 H 151 H (75-99) mg/dL Calcium (8.4-10.2) mg/dL Cyclosporine 69 L (100-400) ng/mL 01/19/18 01/19/18 Range/Units 06:39 11:29 BUN 52 H (9-20) mg/dL Creatinine 2.01 H (0.66-1.25) mg/dL Glucose 153 H (74-99) mg/dL POC Glucose (mg/dL) 143 H (75-99) mg/dL Calcium 8.2 L (8.4-10.2) mg/dL Cyclosporine (100-400) ng/mL Microbiology - Last 24 Hours (Table) 01/16/18 15:40 CSF Gram Stain - Preliminary Cerebral Spinal Fluid CSF Culture - Preliminary Assessment and Plan (1) Altered mental status Current Visit: Yes Status: Acute Code(s): R41.82 - ALTERED MENTAL STATUS, UNSPECIFIED SNOMED Code(s): 319915175 (2) Seizures Current Visit: Yes Status: Chronic Code(s): R56.9 - UNSPECIFIED CONVULSIONS SNOMED Code(s): 75523372 (3) Gram-negative infection Current Visit: Yes Status: Acute Code(s): A49.9 - BACTERIAL INFECTION, UNSPECIFIED SNOMED Code(s): 104492165 (4) Acute encephalopathy Current Visit: No Status: Acute Code(s): G93.40 - ENCEPHALOPATHY, UNSPECIFIED SNOMED Code(s): 66292834 (5) Acute kidney injury Current Visit: No Status: Acute Code(s): N17.9 - ACUTE KIDNEY FAILURE, UNSPECIFIED SNOMED Code(s): 96021780 (6) Liver transplant recipient Current Visit: No Status: Chronic Code(s): Z94.4 - LIVER TRANSPLANT STATUS SNOMED Code(s): 597851760 Plan: As stated previously his exam and worsening symptoms were concerning for meningitis. Lumbar puncture has been performed and I reviewed the negative CSF studies. Infectious disease is on board. He will continue IV Keppra as ordered. I did notice on a previous admission his Keppra level was elevated. I will check this again. Continue neuro checks. I have ordered an MRI of the brain due to his persistent altered mental status and abnormalities on his CT. Continue following with multiple subspecialties. We will continue to follow and make recommendations based on the above studies unavailable. I have performed a history and physical on the above patient. I have reviewed the above note, and agree.
[2018-01-19 14:41] LABS: Hemoglobin A1C 4.8 % (4.0-6.0)
[2018-01-19 16:29] LABS: Glucose,Whole Blood 132 mg/dL (75-99)
[2018-01-19] MEDS ORDERED: SODIUM BICARBONATE TAB 650 MG TAB PO SCH (21:00)
[2018-01-19 21:19] LABS: Glucose,Whole Blood 167 mg/dL (75-99)
[2018-01-20] MEDS: CEFEPIME 2 GM in SODIUM CHLORIDE 0.9% 50 ML IVPB SCH (05:58)
[2018-01-20] MEDS: NITROGLYCERIN OINT 1 INCH/GM PACKET TOPICAL SCH ×4 (05:58→23:16)
[2018-01-20 06:54] LABS: Glucose,Whole Blood 151 mg/dL (75-99)
[2018-01-20] MEDS: INSULIN ASPART 100 UNIT/ML 1 ML 10 ML VIAL SQ SCH ×4 (07:01→21:22)
[2018-01-20] MEDS: NICOTINE 21MG/24HR PATCH TRANSDERM SCH (08:07)
[2018-01-20] MEDS: methylPREDNISolone SOD SUCCI 40 MG/ML 1 ML VIAL IV SCH ×2 (08:07→20:02)
[2018-01-20] MEDS: HEPARIN SODIUM,PORCINE 5,000 UNIT/ML 1 ML VIAL SQ SCH ×3 (08:07→23:16)
[2018-01-20] MEDS: MYCOPHENOLATE MOFETIL 500 MG TAB PO SCH ×2 (08:08→20:19)
[2018-01-20] MEDS: hydrALAZINE HCL 50 MG TAB PO SCH ×4 (08:08→21:15)
[2018-01-20] MEDS: ASPIRIN 325 MG TAB PO SCH (08:08)
[2018-01-20] MEDS: METOPROLOL TARTRATE 50 MG TAB PO SCH ×2 (08:08→20:01)
[2018-01-20] MEDS: FERROUS SULFATE 325 MG TAB PO SCH (08:08)
[2018-01-20] MEDS: CHOLECALCIFEROL 1,000 UNIT TAB PO SCH (08:08)
[2018-01-20] MEDS: SODIUM BICARBONATE TAB 650 MG TAB PO SCH ×2 (08:09→20:01)
[2018-01-20] MEDS: amLODIPine 5 MG TAB PO SCH ×2 (08:09→20:02)
[2018-01-20] MEDS: HYDROcodone/APAP 5-325MG 1 EACH TAB PO PRN ×2 (08:10→17:58)
[2018-01-20] MEDS: levETIRAcetam IV 750 MG in SODIUM CHLORIDE 0.9% 100 ML IVPB SCH ×2 (08:13→21:18)
--- NOTE | 2018-01-20 10:11 | P.PN ---
Subjective Progress Note Date: 01/20/18 Patient altered cognition and mentation continues to improve the small amount daily, able to answer questions intermittently and seems to be improving. Nursing reports that the patient is answering to his name, patient told me was at [facility] and asked how he was doing today Blood pressures continue to be elevated but is much improved overnight and this am. Objective - Vital Signs Vital signs: Vital Signs Temp 97.4 F L 01/20/18 07:40 Pulse 59 L 01/20/18 07:40 Resp 16 01/20/18 07:40 BP 173/77 01/20/18 07:40 Pulse Ox 99 01/20/18 07:40 Intake & Output 01/19/18 01/20/18 01/20/18 18:59 06:59 18:59 Intake Total 450 150 200 Output Total 800 100 Balance -350 50 200 Weight 98 kg Intake: Tube Feeding 450 150 200 Output: Urine 800 100 Uretheral (Dodson) 800 100 Other: Voiding Method Indwelling Catheter Indwelling Catheter - Exam Constitutional: No acute distress, conversant, pleasant Eyes: Anicteric sclerae, moist conjunctiva, no lid-lag, PERRLA ENMT: NC/AT,Oropharynx clear, no erythema, exudates Neck:Supple, FROM, no masses, or JVD, No carotid bruits; No thyromegaly Lungs: Clear to auscultation, Clear to percussion, Normal respiratory effort, no accessory muscle use Cardiovascular: Heart regular in rate and rhythm, No murmurs, gallops, or rubs no peripheral edema Abdominal: Soft Nontender, nom distended, no guarding, no rebound or rigidity, Normoactive bowel sounds No hepatomegaly, No splenomegaly, No palpable mass No abdominal wall hernia noted Skin: Normal temperature, tone, texture, turgor, No induration No subcutaneous nodules, No rash, lesions, No ulcers Extremities:No digital cyanosis No clubbing, Pedal pulses intact and symmetrical Radial pulses intact and symmetrical Normal gait and station, No calf tenderness Psychiatric: Intermittently oriented to self and place Neuro: Somnolent but arousable, still confused at times intermittently oriented to self and place. Neurological status improving today - Labs CBC & Chem 7: 01/17/18 05:40 01/19/18 06:39 Labs: Abnormal Lab Results - Last 24 Hours (Table) 01/19/18 01/19/18 01/19/18 Range/Units 11:29 16:27 21:16 POC Glucose (mg/dL) 143 H 132 H 167 H (75-99) mg/dL 01/20/18 Range/Units 06:51 POC Glucose (mg/dL) 151 H (75-99) mg/dL Microbiology - Last 24 Hours (Table) 01/16/18 15:40 CSF Gram Stain - Preliminary Cerebral Spinal Fluid CSF Culture - Preliminary Assessment and Plan Plan: #Acute encephalopathy: Likely hypoactive delirium, subtle seizures in the differential. R/O stroke versus hypertensive encephalopathy Head CT reviewed, no acute process, MRI ordered and pending EEG done, reviewed LP performed results not concerning for meningitis Holding by mouth meds as he is not able to swallow NG inserted today by Dr. Erazo due to medical necessity Hypertensive urgency Echocardiogram checked, within normal limits. Initiated nitro paste 1 inch every 6 hours, continue antihypertensive regimen via NG tube Nephrology also following continued patient on hydralazine/Catapres patch/ Norvasc and metoprolol Request input from cardiology to help control blood patient's blood pressure Continue to monitor closely #Renal failure likely secondary to glomerulonephritis Cr elevated to 2 today Patient will need kidney biopsy as an outpatient. Has significant proteinuria in the urine. Continue IV fluid hydration, initiated on bicarb drip today Follow up creatinine in a.m. Nephrology is following, considering kidney biopsy as an outpatient Avoid nephrotoxic meds Continue to monitor urine output # enterobacter cloace from the wound cultures Antibiotics according to ID, currently on cefepime Left hip erythema and blistering #Chronic left intertrochanteric fracture Orthopedic's consult--no surgical intervention needed now, follow-up at [facility] orthopedic department Pain control #Chronic hepatitis C untreated, history of liver transplant on immunosuppressants Cyclosporine level checked--within therapeutic range Unable to resume CellCept and cyclosporine via NG tube inserted. #History of seizures, most recent breakthrough seizure was over 5 months ago Continue with Keppra Seizure precautions #Diet as tolerated #Tobacco smoking abuse Patient counseled to quit smoking Nicotine replacement therapy offered #History of CVA Continue with aspirin and statin #Gen. weakness PT Disposition: * We'll attempt to get patient blood pressure under better control, patient still pretty encephalopathic at present * Initiated soft restraints to prevent the patient from pulling his NG tube * Discussed with the patient's grandson Reji next of kin the ongoing plan of care for this patient
--- NOTE | 2018-01-20 10:41 | P.PN ---
Subjective Principal diagnosis: This is a 67-year-old patient with liver transplant, hepatitis C, history of left-sided weakness in the past, and history of left hip pain and a left femoral intertrochanteric fracture, status post surgery, seizure disorder, being followed up for acute kidney injury. Admitted with frequent falls, weakness high blood pressure. The cause of his obtundation is not clear. He is slowly improving. He had a lumbar puncture and results are not very indicated of any meningitis. He is on NG feeding. His cyclosporine level was somewhat high at 129 on 01/10/2018 but subsequently has come down to 69 on 01/15/2018. In spite of his creatinine remains elevated from his baseline. His baseline creatinine is 1.72 on 08/08/2017 and 1.8 on 05/2018. It was 1.79 on 12/20/2017. He was admitted with a creatinine of 2.34 which improved to 1.8-1 on 01/14/2018 but then slowly going up again and is up to 2 this morning. He is unable take his CellCept as is not available in liquid form. He is therefore on Solu-Medrol 40 every 12. This morning is more awake and responsive but disoriented. He follows all commands Objective - Vital Signs Vital signs: Vital Signs Temp 97.4 F L 01/20/18 07:40 Pulse 59 L 01/20/18 08:00 Resp 16 01/20/18 08:00 BP 173/77 01/20/18 07:40 Pulse Ox 99 01/20/18 07:40 Intake & Output 01/19/18 01/20/18 01/20/18 18:59 06:59 18:59 Intake Total 450 150 200 Output Total 800 100 Balance -350 50 200 Weight 98 kg Intake: Tube Feeding 450 150 200 Output: Urine 800 100 Uretheral (Dodson) 800 100 Other: Voiding Method Indwelling Catheter Indwelling Catheter Indwelling Catheter On examination, This morning is more awake and responsive but disoriented. He follows all commands. HEENT exam no JVP neck is supple no facial asymmetry Lungs are clear to auscultation fair air entry bilaterally Heart sounds unremarkable no murmur rub gallop Abdomen soft nontender no ascites no masses Extremity exam was trace edema Neurologically awake alert follows commands generalized weakness and disoriented - Labs CBC & Chem 7: 01/17/18 05:40 01/19/18 06:39 Labs: Abnormal Lab Results - Last 24 Hours (Table) 01/19/18 01/19/18 01/19/18 Range/Units 11:29 16:27 21:16 POC Glucose (mg/dL) 143 H 132 H 167 H (75-99) mg/dL 01/20/18 Range/Units 06:51 POC Glucose (mg/dL) 151 H (75-99) mg/dL Microbiology - Last 24 Hours (Table) 01/16/18 15:40 CSF Gram Stain - Preliminary Cerebral Spinal Fluid CSF Culture - Preliminary Assessment and Plan Assessment: Impression 1. Acute kidney injury secondary to combination of prerenal, cyclosporine. Yesterday 01/19/2018 a bladder scan was positive and 900 mL a Dodson catheter was placed. There may be an element of urinary retention causing acute kidney injury 2. Chronic kidney disease with a baseline creatinine of about 1.7. He has nephrotic range proteinuria at 6 g. He has hepatitis C active and might be a membranoproliferative or a membranous or cryoglobulinemia associated with hep C. So far workup is negative for ANCA, JOCELYNE double-stranded DNA and complement levels. 3. Liver transplant. Not sure whether the hep C is a pretransplant conditioning or he acquired later. 4. Hypertension slightly about target. 5. Obtundation, on Keppra. Possible seizures and status. Slowly improving 6. Non-gap acidosis resolved with bicarb 26 currently on sodium bicarb 7. Urinary retention and Dodson catheter placed 01/19/2018 Recommendation. 1. Maintain Dodson catheter for now Will check bladder scan. 2. check cyclosporine level 3. Reduce sodium bicarb by mouth to 6 and 50 twice a day.
[2018-01-20 11:51] LABS: Glucose,Whole Blood 160 mg/dL (75-99)
[2018-01-20 12:56] LABS: Albumin 2.6 g/dL (3.5-5.0); Calcium 8.1 mg/dL (8.4-10.2); Total Bilirubin 0.5 mg/dL (0.2-1.3); Total Protein 5.4 g/dL (6.3-8.2)
[2018-01-20 13:03] LABS: Potassium 4.6 mmol/L (3.5-5.1)
--- NOTE | 2018-01-20 13:48 | CT ---
EXAMINATION TYPE: CT brain wo con DATE OF EXAM: 01/20/2018 COMPARISON: Previous study dated 01/15/2018. HISTORY: CVA, Encephalopathy CT DLP: 839.5 mGycm Automated exposure control for dose reduction was used. FINDINGS: There has been a previous right occipital infarct. There are also bilateral thalamic lacunar infarcts in caudate nuclear infarct. There is diffuse periventricular white matter lucency compatible with ch ronic ischemia. There are atrophic changes. There is no mass effect, midline shift or intracranial bl ood. There is improved aeration of the left maxillary sinus. Some chronic mucosal thickening persists. The mastoids are clear. The bony calvarium is intact. IMPRESSION: 1. NO ACUTE INTRACRANIAL ABNORMALITY. 2. MULTIPLE, BILATERAL INFARCTS. 3. CHRONIC WHITE MATTER ISCHEMIC CHANGE. 4. ATROPHIC CHANGE. 5. IMPROVED SINUS DISEASE, LEFT MAXILLARY SINUS.
[2018-01-20 16:22] LABS: Glucose,Whole Blood 132 mg/dL (75-99)
[2018-01-20] MEDS: SODIUM CHLORIDE 0.9% 1,000 ML IV SCH (18:52)
[2018-01-20 20:41] LABS: Glucose,Whole Blood 139 mg/dL (75-99)
[2018-01-20] MEDS ORDERED: SODIUM BICARBONATE TAB 650 MG TAB PO SCH (21:00)
[2018-01-21] MEDS: NITROGLYCERIN OINT 1 INCH/GM PACKET TOPICAL SCH ×3 (05:58→16:56)
[2018-01-21 06:01] LABS: Glucose,Whole Blood 137 mg/dL (75-99)
[2018-01-21 06:28] LABS: Basophils % (A) 0 %; Eosinophils % (A) 0 %; HCT 32.5 % (39.0-53.0); HGB 10.4 gm/dL (13.0-17.5); Lymphocytes # (A) 0.8 k/uL (1.0-4.8); Lymphocytes % (A) 8 %; MCHC 31.9 g/dL (31.0-37.0); MCV 94.2 fL (80.0-100.0); Mean Platelet Volume 7.3; Monocytes # (A) 0.5 k/uL (0-1.0); Monocytes % (A) 5 %; Neutrophils # (A) 9.1 k/uL (1.3-7.7); Neutrophils % (A) 87 %; Platelet Count 284 k/uL (150-450); RBC 3.45 m/uL (4.30-5.90); RDW 13.9 % (11.5-15.5); WBC 10.5 k/uL (3.8-10.6)
[2018-01-21 06:41] LABS: Calcium 8.2 mg/dL (8.4-10.2); Potassium 4.1 mmol/L (3.5-5.1)
[2018-01-21] MEDS: INSULIN ASPART 100 UNIT/ML 1 ML 10 ML VIAL SQ SCH ×3 (06:51→16:54)
[2018-01-21] MEDS ORDERED: CEFEPIME 2 GM in SODIUM CHLORIDE 0.9% 50 ML IVPB SCH (09:00)
[2018-01-21] MEDS ORDERED: MYCOPHENOLATE 200 MG/ML NG-TUBE SCH (10:00)
--- NOTE | 2018-01-21 10:02 | P.PN ---
Progress Note - Text Progress Note Date: 01/21/18 Attempting to transfer patient to a tertiary care center. Awaiting call back from family.
[2018-01-21 10:04] VITALS: RESP 16
[2018-01-21] MEDS: NICOTINE 21MG/24HR PATCH TRANSDERM SCH (10:09)
[2018-01-21] MEDS: SODIUM BICARBONATE TAB 650 MG TAB PO SCH (10:09)
[2018-01-21] MEDS: ASPIRIN 325 MG TAB PO SCH (10:10)
[2018-01-21] MEDS: FERROUS SULFATE 325 MG TAB PO SCH (10:10)
[2018-01-21] MEDS: hydrALAZINE HCL 50 MG TAB PO SCH ×3 (10:10→16:56)
[2018-01-21] MEDS: METOPROLOL TARTRATE 50 MG TAB PO SCH (10:11)
[2018-01-21] MEDS: HEPARIN SODIUM,PORCINE 5,000 UNIT/ML 1 ML VIAL SQ SCH ×2 (10:12→16:55)
[2018-01-21] MEDS: methylPREDNISolone SOD SUCCI 40 MG/ML 1 ML VIAL IV SCH (10:12)
[2018-01-21] MEDS: amLODIPine 5 MG TAB PO SCH (10:13)
[2018-01-21] MEDS: CHOLECALCIFEROL 1,000 UNIT TAB PO SCH (10:15)
[2018-01-21] MEDS: levETIRAcetam IV 750 MG in SODIUM CHLORIDE 0.9% 100 ML IVPB SCH (10:28)
[2018-01-21 11:17] LABS: Glucose,Whole Blood 121 mg/dL (75-99)
--- NOTE | 2018-01-21 11:27 | P.DS ---
Providers Date of admission: 01/09/18 20:04 Expected date of discharge: 01/21/18 Attending physician: Madison Wagner MD Consults: 01/09/18 19:57 Consult Physician Stat Consulting Provider: Apryl Arce Consult Reason/Comments: Renal failure Do you want consulting provider notified?: Yes 01/09/18 19:58 Consult Physician Urgent Consulting Provider: Janes Banda Consult Reason/Comments: Uncontrolled BP Do you want consulting provider notified?: Yes 01/09/18 23:12 Consult Physician Routine Consulting Provider: Carlos Eduardo Duarte Consult Reason/Comments: left foot eschar Do you want consulting provider notified?: Yes 01/10/18 20:34 Consult Physician Routine Consulting Provider: Von Denny Consult Reason/Comments: positive wound culture Do you want consulting provider notified?: Yes 01/14/18 10:56 Consult Physician Urgent Consulting Provider: Srinivas Polanco Consult Reason/Comments: mental status change Do you want consulting provider notified?: Yes 01/15/18 12:59 Consult Physician Urgent Consulting Provider: Jules Erazo Consult Reason/Comments: NG tube placement Do you want consulting provider notified?: Already Contacted Primary care physician: Stated None Hospital Course: Discharge Diagnosis: Toxic metabolic encephalopathy Acute kidney injury suspect secondary to acute tubular necrosis on top of glomerular nephritis Hepatitis C genotype 1A Chronically immunocompromise secondary to prior liver transplant Left hip cellulitis with eschar formation secondary to Enterobacter cloacae a Chronic left hip pain secondary to nonunion of intertrochanteric fracture Malignant hypertension, improving Elevated troponin secondary to acute kidney injury History of seizure disorder Patient is a 67-year-old male with a history of a liver transplant, hepatitis C, hypertension, CK 83, and a seizure disorder who initially presented to the hospital secondary to left hip pain with frequent falls at home. In the ER he underwent an extensive evaluation. He was found to have malignant hypertension with a blood pressure greater than 200. He was found to have elevated troponin and an elevated creatinine. Further workup in the emergency department showed chronic changes of left hip. Computed tomography scan of the head was negative for any bleed. Chest x-ray was unremarkable and lactic acid was negative. On further exam he was found to have erythema and blistering over his left hip was initially started on Zosyn and cultures were sent. His antihypertensive medications were adjusted. He was also started on IV fluids and nephrology was consulted. He then progressed with improvement in his renal function and being afebrile from through 01/13. He was transitioned from Zosyn to cefepime on 01/11. However on 01/14 he developed acute encephalopathy. He was seen by neurology and had a repeat CAT scan again which was negative. He underwent an EEG which showed generalized slowing consistent with moderate encephalopathy. He underwent a lumbar puncture which did not show any signs of acute infection. He underwent workup for glomerulonephritis all of which was negative (AMA negative, C-ANCA <1:20, P-ABCA <1:20, DS DNA negative, C 3 109, C4 24.8). He was found to have activie hepatitis C genotype 1a, RNA 545,989. His altered mentation was so significant that he required an NG tube to be placed under sedation and Zofran did receive medications. When neurology reviewed him it was found that his Keppra level had been elevated on at 64.4. Patient has not received any Keppra since 01/13. Repeat Keppra level is currently pending. His cyclosporine level on admission was found to be 69. He was continued on cyclosporine but missed his doses from 01/14 through but his Solu-Medrol was increased at that point in time. Initially his renal function had improved but it then started to worsen again his creatinine on 01/21 is 2.37. His blood pressure again was elevating on 01/18 and cardiology reevaluated him and adjusted his medications. We were unable to obtain an MRI as we cannot ensure that the plating in his knee was MRI compatible. He had a repeat CT head on 01/20 which again was unchanged. I had concerns for possible herpes encephalitis, CJD, vasculitis, spinal abscess, or epidural abscess. Due his worsening renal function and no significant improvement in his mentation as well as her inability to obtain an MRI or further investigation at our facility was determined that the patient would warrant transfer to tertiary care center that would be better evaluate his neurologic status in conjunction with his liver transplant and being on immunosuppressive medications. His power of allocations clerk back was contacted and agreed with transfer. He was accepted to [facility] by Dr. Garrett. Vital signs were stable at time of transfer. Patient seen and examined at bedside. He is able to tell me that his name is Edi. Unable to answer any of my other questions. Unable to follow commands. Does look at me when talking. Vital signs reviewed and stable. General: non toxic, no distress, appears older than stated age. Derm: warm, dry, area over left hip with dressing in place, appears to have an eschar when dressing removed Head: atraumatic, normocephalic, symmetric Eyes: EOMI, no lid lag, anicteric sclera Mouth: no lip lesion, mucus membranes moist Cardiovascular: S1S2 reg, no murmur, positive posterior tibial pulse bilateral, Lungs: decreased bs b/l bases, no rhonchi, no rales , no accessory muscle use Abdominal: soft, nontender to palpation, no guarding, no appreciable organomegaly Ext: no gross muscle atrophy, no edema, no contractures Neuro: unable to follow commands, risk reflexes in b/l biceps and radial, dimished reflexes patellar, equivocal babinski, No with drawal to pain in all 4 extremities, PERRL, EOMI, no lid lag Psych: Awake, able to tell me his name is edi, does not answer an additional questions A total of 75 minutes of time were spent preparing this complex discharge summary . Pertinent Studies: Echocardiogram 01/10 ejection fraction 55-60%, moderate pulmonary hypertension Sarah 20 venous Dopplers-negative for DVT 73 EEG-generalized slowing moderate encephalopathy Head CT 01/15 and 01/20 bilateral lacunar Thalamic infarcts with small vessel ischemic changes Procedures: Lumbar puncture 01/17/18 Patient Condition at Discharge: Serious Plan - Discharge Summary Discharge Rx Participant: Yes New Discharge Prescriptions: No Action amLODIPine BESYLATE [Norvasc] 5 mg PO BID Aspirin 81 mg PO HS Mycophenolate Mofetil [Cellcept] 500 mg PO BID Metoprolol Tartrate [Lopressor] 50 mg PO DAILY Cyclosporine, Modified [Gengraf] 75 mg PO QAM Cyclosporine, Modified [Gengraf] 75 mg PO HS Cholecalciferol [Vitamin D3] 3,000 unit PO DAILY levETIRAcetam [Keppra] 1,000 mg PO Q12HR Ferrous Sulfate [Feosol] 325 mg PO DAILY Discharge Medication List Aspirin 81 mg PO HS 09/16/15 [History] amLODIPine BESYLATE [Norvasc] 5 mg PO BID 09/16/15 [History] Cyclosporine, Modified [Gengraf] 75 mg PO HS 12/16/15 [History] Cyclosporine, Modified [Gengraf] 75 mg PO QAM 12/16/15 [History] Metoprolol Tartrate [Lopressor] 50 mg PO DAILY 12/16/15 [History] Mycophenolate Mofetil [Cellcept] 500 mg PO BID 12/16/15 [History] Cholecalciferol [Vitamin D3] 3,000 unit PO DAILY 01/09/18 [History] Ferrous Sulfate [Feosol] 325 mg PO DAILY 01/09/18 [History] levETIRAcetam [Keppra] 1,000 mg PO Q12HR 01/09/18 [History] Follow up Appointment(s)/Referral(s): None,Stated [Primary Care Provider] - 1-2 days Activity/Diet/Wound Care/Special Instructions: ECF on D/C
[2018-01-21 12:52] VITALS: TEMP 97.7
[2018-01-21 16:26] LABS: Glucose,Whole Blood 143 mg/dL (75-99)
[2018-01-21 16:54] VITALS: BP 162/93; PULSE 56
--- NOTE | 2018-01-21 18:03 | PN ---
PROGRESS NOTE Patient is seen for followup for acute kidney injury and chronic kidney disease. His acute kidney injury has improved. 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 However, all serologies have been negative except for hepatitis C. The patient's mentation has deteriorated. It seems slightly better. However, he is still not at his baseline. CT scans have been negative. Patient is being followed by Neurology. He is able to take some of his p.o. medications. In the meantime, when patient was not taking any oral medications. He was placed on Solu-Medrol to help with the liver transplant. This morning there was discussion about possibly transferring patient to [facility]. PHYSICAL EXAMINATION: On examination today, patient is comfortable. He is not in any acute distress. Blood pressure was 183/80, heart rate 59 per minute. He is afebrile. Examination of the heart: S1, S2. Examination lungs: Bilateral breath sounds are heard. Abdomen is soft, nontender. Examination lower extremities shows no significant edema. The patient has left hemiparesis. He just answered good to how he was doing and patient has not communicated much after that. LABS: Show sodium 142, potassium 4.1, BUN 79, serum creatinine 2.37, hemoglobin 10.4 g /dL. ASSESSMENT: 1. Acute kidney injury prerenal as well as secondary to some degree of cyclosporine toxicity, currently improved. Serum creatinine was rising again. Patient was found to have high residuals. Currently has an indwelling Dodson catheter. The patient is not on any other nephrotoxic medications. We will recheck another cyclosporine level now that the patient is taking p.o. medications. Blood pressure has not been low. I will also discontinue the solumedrol now that the patient can take oral CellCept and cyclosporine. 2. Altered mentation, etiology unclear. It is somewhat improved but not yet at baseline. CT scans have been negative. The patient is being followed by Neurology. 3. Hypertension, which had been uncontrolled. However, blood pressure was better controlled. Definitely the steroids are adding to the uncontrolled hypertension. I will discontinue the Solu-Medrol and change to small dose of prednisone and which eventually will be discontinued as well. 4. Status post liver transplant. 5. Hepatitis C. PLAN: Continue with IV fluids. Encourage increased oral intake and DC Solu-Medrol. Continue with the indwelling Dodson catheter and recheck another cyclosporine level. Decrease dose. MMODL / IJN: [id number] / MTDD
[2018-01-21] MEDS ORDERED: MYCOPHENOLATE 200 MG/ML PO SCH (21:00)
[2018-01-22] MEDS ORDERED: predniSONE 10 MG TAB PO SCH (09:00)
--- NOTE | 2018-01-22 12:42 | CDI ---
Last Revision, June 2017 Documentation Clarification Form Date: 01/22/18 From: Christine Sree Kate Mary Ann, Senior [employer] Coordinator Hours-8:30 am & 5 pm MYael Admit Date: 01/09/2018 8:04:00 PM Patient Name: Eddie Pack Visit Number: [id number] Discharge Date: 01/21/18 ATTENTION: The Clinical Documentation Specialists (CDI) and [facility] Coding Staff appreciate your assistance in clarifying documentation. Please respond to the clarification below the line at the bottom and electronically sign. The CDI & [facility] Coding staff will review the response and follow-up if needed. Please note: Queries are made part of the Legal Health Record. If you have any questions, please contact the author of this message via ITS. Dr. Ramila Agee Malignant hypertension with end organ damage elevated creatinine do was documented in the HP. History/Risk Factors: HTN w CKD III Unspecified B/P: 210/98, 208/93, 187/84, 166/78 Right BP Sittin/74, 158/74, 153/72, 138/90, 160/72, 139/64, 154/63 Treatment: Apresoline 20 mg IVP, Vasotec 2.5 mg IVP, Lopressor 50 mg po daily In order to capture the severity of condition, please document and specify the appropriate condition: Hypertensive Emergency Hypertensive Urgency Essential Hypertension Other Condition, please specify Unable to determine Hypertensive Urgency SBP > 180 or DBP > 120 without symptoms or with headache Hypertensive Emergency SBP > 180 or DBP > 120 with chest pain or end organ damage Hypertensive encephalopathy, retinal hemorrhages, papilledema, KEL Please continue to document in your progress notes and discharge summary in order to capture severity of illness and risk of mortality. Include clinical findings that support your diagnosis. Initially he had hypertensive emergency on arrival later in his hospital stay his blood pressure elevated again but there was no further end organ damage and this was hypertensive urgency MTDD
== END 2018-01-21 18:59 | disposition short-term general hospital (02) | DRG 304 ==
LOC: EC 16:09 → 6SEL 20:04
PROVIDERS: ADMIT Internal Medicine; ATTEND Internal Medicine
PROC: 009U3ZX Drainage of Spinal Canal, Percutaneous Approach, Diagnostic (ICD-10-PCS; 2018-01-16)
PROC: 3E0G76Z Introduction of Nutritional Substance into Upper GI, Via Natural or Artificial Opening (ICD-10-PCS; 2018-01-17)
PROC: 0DH68UZ Insertion of Feeding Device into Stomach, Via Natural or Artificial Opening Endoscopic (ICD-10-PCS; principal; 2018-01-17 08:25)
DX: I16.1 Hypertensive emergency (principal); N17.0 Acute kidney failure with tubular necrosis; G92 Toxic encephalopathy; I69.354 Hemiplegia and hemiparesis following cerebral infarction affecting left non-dominant side; Z94.4 Liver transplant status; E87.2 Acidosis; L03.116 Cellulitis of left lower limb; B19.10 Unspecified viral hepatitis B without hepatic coma; S72.22XK Displaced subtrochanteric fracture of left femur, subsequent encounter for closed fracture with nonunion; I12.9 Hypertensive chronic kidney disease with stage 1 through stage 4 chronic kidney disease, or unspecified chronic kidney disease; N18.3 Chronic kidney disease, stage 3 (moderate); I69.398 Other sequelae of cerebral infarction; J44.9 Chronic obstructive pulmonary disease, unspecified; K74.60 Unspecified cirrhosis of liver; I16.0 Hypertensive urgency; R40.2362 Coma scale, best motor response, obeys commands, at arrival to emergency department; R40.2142 Coma scale, eyes open, spontaneous, at arrival to emergency department; R40.2252 Coma scale, best verbal response, oriented, at arrival to emergency department; E86.9 Volume depletion, unspecified; S70.212A Abrasion, left hip, initial encounter; R33.9 Retention of urine, unspecified; T45.1X5A Adverse effect of antineoplastic and immunosuppressive drugs, initial encounter; I25.10 Atherosclerotic heart disease of native coronary artery without angina pectoris; B96.89 Other specified bacterial agents as the cause of diseases classified elsewhere; G89.29 Other chronic pain; R29.6 Repeated falls; M24.542 Contracture, left hand; E86.0 Dehydration; B18.2 Chronic viral hepatitis C; G40.909 Epilepsy, unspecified, not intractable, without status epilepticus; F17.200 Nicotine dependence, unspecified, uncomplicated; Z71.6 Tobacco abuse counseling; Z79.82 Long term (current) use of aspirin; Z79.899 Other long term (current) drug therapy; Z78.1 Physical restraint status; Z91.81 History of falling; Z95.5 Presence of coronary angioplasty implant and graft; Z88.8 Allergy status to other drugs, medicaments and biological substances; Z82.49 Family history of ischemic heart disease and other diseases of the circulatory system; W19.XXXA Unspecified fall, initial encounter; Y92.009 Unspecified place in unspecified non-institutional (private) residence as the place of occurrence of the external cause
CPT/HCPCS: 36415; 43200; 62270; 70450; 71045; 71046; 76770; 80048; 80053; 80061; 80158; 80177; 81001; 82140; 82550; 82553; 82570; 82607; 82945; 83036; 83605; 83735; 84100; 84156; 84157; 84443; 84484; 85025; 85610; 85730; 86038; 86160; 86225; 86255; 86704; 86803; 87070; 87077; 87186; 87205; 87252; 87340; 87496; 87498; 87522; 87529; 87798; 87902; 88108; 89050; 93005; 93306; 94760; 95819; 96361; 96365; 96366; 96375; 99291

== ENCOUNTER 2018-04-11 00:56 | Emergency (ER) | payer MEDICARE ==
[2018-04-11] MEDS ORDERED: SODIUM CHLORIDE 0.9% 500 ML IV STA (01:23)
[2018-04-11 01:43] LABS: Basophils % (A) 0 %; Eosinophils # (A) 0.1 k/uL (0-0.7); Eosinophils % (A) 3 %; HGB 9.2 gm/dL (13.0-17.5); Lymphocytes # (A) 1.2 k/uL (1.0-4.8); Lymphocytes % (A) 23 %; MCH 31.1 pg (25.0-35.0); MCV 94.1 fL (80.0-100.0); Mean Platelet Volume 6.7; Monocytes # (A) 0.3 k/uL (0-1.0); Monocytes % (A) 6 %; Neutrophils # (A) 3.3 k/uL (1.3-7.7); Neutrophils % (A) 67 %; Platelet Count 263 k/uL (150-450); RBC 2.98 m/uL (4.30-5.90); RDW 14.3 % (11.5-15.5)
[2018-04-11 01:48] LABS: Ammonia <9 umol/L (<30); Lactic Acid, Venous 0.6 mmol/L (0.7-2.0)
[2018-04-11 01:49] LABS: Albumin 3.3 g/dL (3.5-5.0); Potassium 4.6 mmol/L (3.5-5.1); Total Bilirubin 0.2 mg/dL (0.2-1.3); Total Protein 6.4 g/dL (6.3-8.2)
[2018-04-11 04:01] VITALS: PULSE 78
--- NOTE | 2018-04-11 04:30 | ED ---
Seizure HPI - General Chief Complaint: Seizure Stated Complaint: seizure Time Seen by Provider: 04/11/18 00:58 Source: patient Mode of arrival: EMS Limitations: no limitations - History of Present Illness Initial Comments: Eddie Pack is a 67-year-old male with a past medical history significant for CVA with residual left-sided deficit and seizure disorder for which he was on Keppra. Patient is brought to the emergency department today for evaluation of a possible seizure. Patient reports that he was in his usual state of health throughout the day yesterday. He reports that he ate dinner and he took all his medications as dispensed from his extended care facility. Patient does state that recently his 1000 mg Keppra has been changed to 2 pills that he takes he is concerned that he is may be being underdosed on his Keppra however his medical record does indicate that he is still taking 1000 mg twice a day. Patient reports that he recalls going to bed and falling asleep. The next thing he remembers there were staff in his room asking him questions and he felt very confused T had urinated on himself. There is concern that the patient may have had a seizure, patient was hemodynamically stable awake and alert though confused upon transfer to the emergency department. EMS reports that upon their arrival patient appeared to be postictal, he had been incontinent of urine. He didn't have any tongue biting. He had no airway compromise. He was awake and alert though he was not certain why everybody was there. He did not recall seizing. In route to the hospital patient became more oriented. Upon arrival patient had returned to baseline mental status. - Related Data Home Medications Medication Instructions Recorded Confirmed Aspirin 81 mg PO HS 09/16/15 01/09/18 amLODIPine BESYLATE [Norvasc] 5 mg PO BID 09/16/15 01/09/18 Cyclosporine, Modified [Gengraf] 75 mg PO HS 12/16/15 01/09/18 Cyclosporine, Modified [Gengraf] 75 mg PO QA 12/16/15 01/09/18 Metoprolol Tartrate [Lopressor] 50 mg PO DAILY 12/16/15 01/09/18 Mycophenolate Mofetil [Cellcept] 500 mg PO BID 12/16/15 01/09/18 Cholecalciferol [Vitamin D3] 3,000 unit PO DAILY 01/09/18 01/09/18 Ferrous Sulfate [Feosol] 325 mg PO DAILY 01/09/18 01/09/18 levETIRAcetam [Keppra] 1,000 mg PO Q12HR 01/09/18 01/09/18 Allergies Allergy/AdvReac Type Severity Reaction Status Date / Time diphenhydramine HCl Allergy Unknown Verified 04/11/18 01:06 [From Benadryl] Review of Systems ROS Statement: Those systems with pertinent positive or pertinent negative responses have been documented in the HPI. ROS Other: All systems not noted in ROS Statement are negative. Past Medical History Past Medical History: Cancer, CVA/TIA, Hypertension, Liver Disease, Seizure Disorder, Vascular Disorder Additional Past Medical History / Comment(s): left sided weakness from stroke, HEPATITIS C History of Any Multi-Drug Resistant Organisms: None Reported Past Surgical History: Heart Catheterization With Stent Additional Past Surgical History / Comment(s): Liver transplant, LEFT FEMUR REPAIR x2 Date of Last Stent Placement:: 2012 Past Psychological History: No Psychological Hx Reported Smoking Status: Current every day smoker Past Alcohol Use History: None Reported Past Drug Use History: None Reported - Past Family History Mother Family Medical History: Congestive Heart Failure (CHF) Father Family Medical History: Congestive Heart Failure (CHF), Myocardial Infarction ( CA) General Exam - General Exam Comments Initial Comments: GENERAL: Chronically ill-appearing male, left-sided facial droop, left-sided weakness HENT: Normocephalic, Atraumatic. Neck is soft and supple. No significant lymphadenopathy is noted. Oropharynx is clear. Moist mucous membranes. Neck has full range of motion without eliciting any pain. EYES: The sclera were anicteric and conjunctiva were pink and moist. Extraocular movements were intact and pupils were equal round and reactive to light. Eyelids were unremarkable. PULMONARY: Unlabored respirations. Good breath sounds bilaterally. No audible rales rhonchi or wheezing was noted. CARDIOVASCULAR: There is a regular rate and rhythm without any murmurs gallops or rubs. ABDOMEN: Soft and nontender with normal bowel sounds. Well-healed surgical incision consistent with history of liver transplant SKIN: Skin is clear with no lesions or rashes and otherwise unremarkable. NEUROLOGIC: Patient is alert and oriented x3. Left-sided facial droop Left-sided arm and leg weakness MUSCULOSKELETAL: Weakness and atrophy of left arm and leg LYMPHATICS: No significant lymphadenopathy is noted PSYCHIATRIC: Normal psychiatric evaluation. Limitations: no limitations Limitations: no limitations Course Vital Signs 04/11/18 04/11/18 04/11/18 01:00 02:13 04:00 Temperature 98.5 F Pulse Rate 74 74 78 Respiratory 18 16 16 Rate Blood Pressure 166/77 174/72 178/72 O2 Sat by Pulse 100 99 98 Oximetry Medical Decision Making - Medical Decision Making The patient was seen and evaluated, history was obtained from the patient, EMS and review of medical record 67-year-old male with a history of seizure disorder on by mouth Keppra. Meds are dispensed by care providers at his extended care facility. Patient has been compliant with all his meds. Not experience any vomiting or diarrhea that would result in him getting his appropriate levels medications. Patient does express concern that his Keppra pill has been changed recently though he is not certain if this is true. His medical record does indicate that he started getting 1 g twice a day. Labs and imaging were ordered EKG obtained at 4:18 AM, rate is 76, rhythm is sinus, there is left axis deviation. WA prolongation. WA is 224, QRS 1-2, QTc 432. No acute ST elevations or depressions no evidence of acute ischemia or infarction. Labs were reviewed, labs are at the patient's baseline. Patient's alert and oriented at his baseline. No further seizure activity in the emergency department. At this time I do not feel the patient requires admission to the hospital, he has remained awake, alert and at his baseline mental status since arrival. He has no complaints. She wasn't [facility] care facility and will be closely monitored. His medications will be administered by staff. Patient is agreeable to plan for discharge back to [facility]. - Lab Data Result diagrams: 04/11/18 01:00 04/11/18 01:00 Lab Results 04/11/18 04/11/18 04/11/18 Range/Units 01:00 01:00 01:00 WBC 5.0 (3.8-10.6) k/uL RBC 2.98 L (4.30-5.90) m/uL Hgb 9.2 L (13.0-17.5) gm/dL Hct 28.0 L (39.0-53.0) % MCV 94.1 (80.0-100.0) fL MCH 31.1 (25.0-35.0) pg MCHC 33.0 (31.0-37.0) g/dL RDW 14.3 (11.5-15.5) % Plt Count 263 (150-450) k/uL Neutrophils % 67 % Lymphocytes % 23 % Monocytes % 6 % Eosinophils % 3 % Basophils % 0 % Neutrophils # 3.3 (1.3-7.7) k/uL Lymphocytes # 1.2 (1.0-4.8) k/uL Monocytes # 0.3 (0-1.0) k/uL Eosinophils # 0.1 (0-0.7) k/uL Basophils # 0.0 (0-0.2) k/uL Sodium 140 (137-145) mmol/L Potassium 4.6 (3.5-5.1) mmol/L Chloride 114 H (98-107) mmol/L Carbon Dioxide 18 L (22-30) mmol/L Anion Gap 8 mmol/L BUN 33 H (9-20) mg/dL Creatinine 2.08 H (0.66-1.25) mg/dL Est GFR (CKD-EPI)AfAm 37 (>60 ml/min/1.73 sqM) Est GFR (CKD-EPI)NonAf 32 (>60 ml/min/1.73 sqM) Glucose 113 H (74-99) mg/dL Plasma Lactic Acid Kaz 0.6 L (0.7-2.0) mmol/L Calcium 9.0 (8.4-10.2) mg/dL Total Bilirubin 0.2 (0.2-1.3) mg/dL AST 19 (17-59) U/L ALT 20 L (21-72) U/L Alkaline Phosphatase 69 (38-126) U/L Ammonia <9 (<30) umol/L Total Protein 6.4 (6.3-8.2) g/dL Albumin 3.3 L (3.5-5.0) g/dL Urine Color Urine Appearance (Clear) Urine pH (5.0-8.0) Ur Specific [place] (1.001-1.035) Urine Protein (Negative) Urine Glucose (UA) (Negative) Urine Ketones (Negative) Urine Blood (Negative) Urine Nitrite (Negative) Urine Bilirubin (Negative) Urine Urobilinogen (<2.0) mg/dL Ur Leukocyte Esterase (Negative) Urine RBC (0-5) /hpf Urine WBC (0-5) /hpf Hyaline Casts (0-2) /lpf Urine Mucus (None) /hpf Urine Opiates Screen (NotDetected) Ur Oxycodone Screen (NotDetected) Urine Methadone Screen (NotDetected) Ur Propoxyphene Screen (NotDetected) Ur Barbiturates Screen (NotDetected) U Tricyclic Antidepress (NotDetected) Ur Phencyclidine Scrn (NotDetected) Ur Amphetamines Screen (NotDetected) U Methamphetamines Scrn (NotDetected) U Benzodiazepines Scrn (NotDetected) Urine Cocaine Screen (NotDetected) U Marijuana (THC) Screen (NotDetected) 04/11/18 Range/Units 03:50 WBC (3.8-10.6) k/uL RBC (4.30-5.90) m/uL Hgb (13.0-17.5) gm/dL Hct (39.0-53.0) % MCV (80.0-100.0) fL MCH (25.0-35.0) pg MCHC (31.0-37.0) g/dL RDW (11.5-15.5) % Plt Count (150-450) k/uL Neutrophils % % Lymphocytes % % Monocytes % % Eosinophils % % Basophils % % Neutrophils # (1.3-7.7) k/uL Lymphocytes # (1.0-4.8) k/uL Monocytes # (0-1.0) k/uL Eosinophils # (0-0.7) k/uL Basophils # (0-0.2) k/uL Sodium (137-145) mmol/L Potassium (3.5-5.1) mmol/L Chloride (98-107) mmol/L Carbon Dioxide (22-30) mmol/L Anion Gap mmol/L BUN (9-20) mg/dL Creatinine (0.66-1.25) mg/dL Est GFR (CKD-EPI)AfAm (>60 ml/min/1.73 sqM) Est GFR (CKD-EPI)NonAf (>60 ml/min/1.73 sqM) Glucose (74-99) mg/dL Plasma Lactic Acid Kaz (0.7-2.0) mmol/L Calcium (8.4-10.2) mg/dL Total Bilirubin (0.2-1.3) mg/dL AST (17-59) U/L ALT (21-72) U/L Alkaline Phosphatase (38-126) U/L Ammonia (<30) umol/L Total Protein (6.3-8.2) g/dL Albumin (3.5-5.0) g/dL Urine Color Light Yellow Urine Appearance Clear (Clear) Urine pH 6.0 (5.0-8.0) Ur Specific [place] 1.011 (1.001-1.035) Urine Protein 3+ H (Negative) Urine Glucose (UA) Negative (Negative) Urine Ketones Negative (Negative) Urine Blood Small H (Negative) Urine Nitrite Negative (Negative) Urine Bilirubin Negative (Negative) Urine Urobilinogen <2.0 (<2.0) mg/dL Ur Leukocyte Esterase Negative (Negative) Urine RBC 4 (0-5) /hpf Urine WBC 1 (0-5) /hpf Hyaline Casts 4 H (0-2) /lpf Urine Mucus Rare H (None) /hpf Urine Opiates Screen Not Detected (NotDetected) Ur Oxycodone Screen Not Detected (NotDetected) Urine Methadone Screen Not Detected (NotDetected) Ur Propoxyphene Screen Not Detected (NotDetected) Ur Barbiturates Screen Not Detected (NotDetected) U Tricyclic Antidepress Not Detected (NotDetected) Ur Phencyclidine Scrn Not Detected (NotDetected) Ur Amphetamines Screen Not Detected (NotDetected) U Methamphetamines Scrn Not Detected (NotDetected) U Benzodiazepines Scrn Not Detected (NotDetected) Urine Cocaine Screen Not Detected (NotDetected) U Marijuana (THC) Screen Not Detected (NotDetected) Disposition Clinical Impression: Epileptic seizure Disposition: HOME SELF-CARE Condition: Good Instructions: Recurrent Seizures in Adults (ED) Is patient prescribed a controlled substance at d/c from ED?: No Referrals: Von Olea MD [Primary Care Provider] - 1-2 days Time of Disposition: 05:02
[2018-04-11 04:42] LABS: Amphetamine Screen,Urine Not Detected (NotDetected); Appearance,Urine Clear (Clear); Barbiturate Screen,Urine Not Detected (NotDetected); Benzodiazepines Screen,Urine Not Detected (NotDetected); Bilirubin,Urine Negative (Negative); Blood,Urine Small (Negative); Cocaine Screen,Urine Not Detected (NotDetected); Color,Urine Light Yellow; Glucose,Urine (UA) Negative (Negative); Hyaline Casts,Urine 4 /lpf (0-2); Ketones,Urine Negative (Negative); Leukocyte Esterase,Urine Negative (Negative); Methadone Screen, Urine Not Detected (NotDetected); Mucus,Urine Rare /hpf; Nitrite,Urine Negative (Negative); Opiate Screen,Urine Not Detected (NotDetected); Oxycodone Screen, Urine Not Detected (NotDetected); Phencyclidine Screen,Urine Not Detected (NotDetected); Protein,Urine 3+ (Negative); RBC,Urine 4 /hpf (0-5); Specific Gravity,Urine 1.011 (1.001-1.035); Tricyclic Antidepressant,Urine Not Detected (NotDetected); Urn Cannabinoid Scrn Not Detected (NotDetected); Urobilinogen,Urine <2.0 mg/dL (<2.0); WBC,Urine 1 /hpf (0-5)
[2018-04-11 05:48] VITALS: BP 164/76; RESP 18; TEMP 97.1
[2018-04-12 06:43] LABS: Levetiracetam (Keppra) 67.8 ug/mL (3.0-60.0)
== END 2018-04-11 05:49 | disposition home or self-care (01) ==
LOC: EC 00:56
DX: G40.909 Epilepsy, unspecified, not intractable, without status epilepticus (principal); I10 Essential (primary) hypertension; F17.200 Nicotine dependence, unspecified, uncomplicated; Z86.73 Personal history of transient ischemic attack (TIA), and cerebral infarction without residual deficits; Z85.9 Personal history of malignant neoplasm, unspecified; Z94.4 Liver transplant status; Z98.890 Other specified postprocedural states; Z79.82 Long term (current) use of aspirin; Z79.899 Other long term (current) drug therapy; Z88.8 Allergy status to other drugs, medicaments and biological substances
CPT/HCPCS: 36415; 80053; 80158; 80177; 80306; 81001; 82140; 83605; 85025; 93005; 96360; 99284